=== PATIENT | male | born 1930 | race Caucasian/White ===

== ENCOUNTER → 2016-07-25 | Outpatient (CLI) | payer OTHER ==
[~2016-07-25] MED LIST: ACET-1256 PO; AMOX500C3 PO; ASPI81TA28 PO; ATOR10TA88 PO; CALC-338 PO; CALC500C3 PO; CALCTAB7 PO; CHOL1000 PO; CIPR-255 PO; CIPR1TAB10 PO; DOCU100C31 PO; DONE1TAB11 PO; FESO4TAB PO; LOSA1TAB38 PO; METO25TA3 PO; METO50TA7 PO; OXYC-57 PO; RIVA1TAB4 PO
[2016-07-25 13:42] LABS: BASO % 0.3 %; BASO ABS # 0.02 K/uL (0-0.2); COMPLETE YES; EOS % 0.9 %; HEMATOCRIT 38.5 % (42-52); IG% 0.1 %; LYMPH % 14.6 %; LYMPH ABS # 1.09 K/uL (1.2-3.4); MEAN CELL VOLUME 93.2 fL (80-100); MEAN CORPUSCULAR HEMOGLOBIN 31.2 pg (25-34); MEAN CORPUSCULAR HGB CONC 33.5 g/dl (32-36); MEAN PLATELET VOLUME 11.1 fL (7.4-10.4); MONO % 7.2 %; NEUT % 76.9 %; PLATELET COUNT 200 K/uL (130-400); RED BLOOD COUNT 4.13 M/uL (4.7-6.1); WHITE BLOOD COUNT 7.48 K/uL (4.8-10.8)
[2016-07-25 13:49] LABS: URINE APPEARANCE CLEAR (CLEAR); URINE BILIRUBIN NEG (NEG); URINE COLOR YELLOW; URINE NITRITE NEG (NEG); URINE PH 6.5 (4.5-7.5); URINE SPECIFIC GRAVITY 1.007 (1.000-1.030); UROBILINOGEN NEG (NEG)
[2016-07-25 13:50] LABS: ESTIMATED AVERAGE GLUCOSE 126 mg/dl; HA1C FLAG Normal (Normal)
[2016-07-25 13:52] LABS: MANUAL MICROSCOPIC REQUIRED? NO; REVIEW REQ? NO
[2016-07-25 14:01] LABS: BLOOD UREA NITROGEN 27 mg/dl (7-18); BUN/CREATININE RATIO 24.4 (10-20); CARBON DIOXIDE 27 mmol/L (21-32); CHLORIDE 106 mmol/L (98-107); CHOLESTEROL 115 mg/dl (0-200); GLUCOSE 107 mg/dl (70-99); POTASSIUM 4.3 mmol/L (3.5-5.1); SODIUM 141 mmol/L (136-145); TRIGLYCERIDES 76 mg/dl (0-150); VERY LOW DENSITY LIPOPROT CALC 15 mg/dl
[2016-07-25 14:11] LABS: CHOLESTEROL/HDL RATIO 2.6; HDL CHOLESTEROL 44 mg/dl; LDL CHOLESTEROL CALCULATED 56 mg/dl
== END | disposition home or self-care (01) ==
LOC: C.LABBC 09:59
PROVIDERS: ATTEND Internal Medicine Geriatric Medicine
DX: E78.5 Hyperlipidemia, unspecified (principal); I10 Essential (primary) hypertension; R73.9 Hyperglycemia, unspecified; D64.9 Anemia, unspecified; I48.92 Unspecified atrial flutter; E55.9 Vitamin D deficiency, unspecified

== ENCOUNTER 2016-09-27 18:09 | Emergency (ER) | payer OTHER ==
[~2016-09-27] VITALS: Ht 177.8 cm; Wt 103.2 kg
[~2016-09-27 18:09] MED LIST changes: -CALCTAB7 PO; -CIPR-255 PO; -DONE1TAB11 PO; -FLUT0.15 NAE; -METH-1305 PO; -METO50TA7 PO; -PHEN-775 PO
[2016-09-27 18:18] VITALS: TEMP 36.9; Ht 177.8 cm; Wt 103.2 kg
--- NOTE | 2016-09-27 18:55 | EMERGENCY ROOM VISIT NOTE ---
History Report prepared by Yancy: Izzy Solorzano Under the Supervision of: Dr. Austin Alejandro M.D. First contact with patient: 18:43 Chief Complaint: UNABLE TO VOID Stated Complaint: UNABLE TO VOID History of Present Illness The patient is a 86 year old male who presents to the Emergency Room with complaints of constant difficulty voiding urine beginning a few days ago. The patient states that he was seen by his doctor and had urine tests done today and had a Blackwood placed and removed. He now complains of continued inability to void and pain with urination. The patient rates his pain as a 4/10 in severity. Source of History: patient Onset: a few days ago Position: other (urinary) Symptom Intensity: 4/10 Timing: constant Note: Pt complains of inability to void and pain with urination. Review of Systems See HPI for pertinent positives & negatives. A total of 10 systems reviewed and were otherwise negative. Past Medical & Surgical Medical Problems: (1) Aortic Valve Disorder (2) Coronary Atherosclerosis Of [place] Coronary Vessel (3) Diab Teri Wo Compl, Type Ii Or Unspec Type, Not Uncntrld (4) Esophageal Reflux (5) Hx-Prostatic Malignancy (6) Hyperlipidemia Nec/Nos (7) Malign Neopl Prostate (8) Osteoarthros Nos-Unspec Family History No pertinent family history stated. Social History Smoking Status: Never Smoker Drug Use: none Marital Status: Housing Status: lives with family, lives with significant other Occupation Status: retired Current/Historical Medications Scheduled Acetaminophen (Tylenol), 500-1,000 MG PO PRN Amoxicillin (Amoxil), 2,000 MG PO UD Aspirin (Aspirin Ec), 81 MG PO QAM Atorvastatin (Lipitor), 10 MG PO QAM Calcium Carbonate (Tums), 2 TAB PO PRN Calcium Carbonate-Vitamin D W/ (Caltrate 600 Plus), 1 TAB PO DAILY Cholecalciferol (Vitamin D3), 1 TAB PO QAM Ciprofloxacin Hcl (Cipro), 250 MG PO BID Docusate Sodium (Docusate Sodium), 2 TAB PO PRN Donepezil Hydrochloride (Donepezil Hcl), 1 TAB PO HS Fesoterodine Fumarate (Toviaz), 4 MG PO Q2D Losartan Potassium (Cozaar), 50 MG PO QAM Metoprolol Succ (Toprol Xl) (Toprol-Xl), 50 MG PO BID Rivaroxaban (Xarelto), 20 MG PO QPM Allergies Coded Allergies: Lisinopril (Verified Adverse Reaction, Mild, DIARRHEA, 04/22/16) Physical Exam Vital Signs Date Time Temp Pulse Resp B/P Pulse Ox O2 Delivery O2 Flow Rate FiO2 09/27/16 21:49 71 18 186/96 94 Room Air 09/27/16 21:13 89 16 177/104 94 Room Air 09/27/16 20:23 91 16 179/114 95 Room Air 09/27/16 18:18 36.9 81 20 149/86 95 Room Air Physical Exam GENERAL: Patient is a healthy-appearing well-nourished HEAD: Normocephalic atraumatic EYES: Ocular movements intact pupils equal and react to light OROPHARYNX mucous membranes are moist no exudates present no erythema or edema present NECK: Supple no nuchal rigidity CHEST: Good equal expansion LUNGS: Clear and equal to auscultation CARDIAC: Normal S1 and S2 ABDOMEN: Soft, tender to the suprapubic area, no guarding BACK: No CVA tenderness EXTREMITIES: No pain upon palpation normal muscle strength in all groups no clubbing cyanosis or edema NEURO: Patient is following commands is answering questions appropriately. Alert and oriented x3 Cranial Nerves 2-12 grossly intact Medical Decision & Procedures ER Provider Diagnostic Interpretation: CT results as stated below per my review and radiologist interpretation: CT SCAN OF THE ABDOMEN AND PELVIS WITHOUT CONTRAST FINDINGS: Lower chest: There is respiratory motion artifact. There is dependent atelectasis. There are coronary artery calcifications. Liver: The unenhanced liver is normal in size, contour, and attenuation. There is no intrahepatic biliary ductal dilatation. Gallbladder: Unremarkable. Spleen: Normal in size and attenuation. Pancreas: Unremarkable. Adrenal glands: There is mild bilateral adrenal gland thickening. Kidneys: There are multiple nonobstructing right renal calculi measuring up to 1 cm in diameter Bowel: There are no transition zones indicate bowel obstruction. By history the appendix is surgically absent. There is no acute diverticulitis. There is a moderate amount stool within the rectal vault. Peritoneum: There is no intraperitoneal free air or abdominal ascites. There are postsurgical changes are prior right inguinal hernia repair Vasculature: The abdominal aorta is normal in course and caliber. Adenopathy: None. Pelvic viscera: There are prostate radiation therapy implant seeds present Skeletal structures: No destructive osseous lesions are seen. IMPRESSION: 1. No acute inflammatory changes 2. Right-sided nephrolithiasis. No ureteral or bladder calculi identified 3. No evidence of bowel obstruction. No evidence of free air Electronically signed by: Saran Jaramillo M.D. 09/27/2016 7:50 PM Dictated Date/Time: 09/27/2016 7:46 PM Laboratory Results Labs reviewed by ED physician. Medications Administered Medications (Trade) Dose Ordered Sig/Alva Route Start Time Stop Time Status Last Admin Dose Admin Ciprofloxacin (Cipro Tab) 500 mg NOW STAT PO 09/27/16 21:39 09/27/16 21:40 DC 09/27/16 21:47 500 MG ED Course 1843: Past medical records reviewed. The patient was evaluated in room C4. A complete history and physical examination was performed. 2021: I discussed the patient's case with Dr. Vasquez. 2138: Cipro Tab 500mg PO. 2204: Pt had 2L of fluid in urinary retention and got a Blackwood. 2209: Upon reexamination the patient is hemodynamically stable. I discussed results and treatment plan with the patient. He verbalizes agreement and understanding. The patient is ready for discharge. Medical Decision This is an 86-year-old male who presents emergency department unable to void after having appointment at his urology clinic today. We attempted to pass a Blackwood catheter in the emergency department without success. For this reason Dr. Vasquez. He was able to pass a Blackwood. He asked that the patient be started on Cipro and that his Xarelto be held. he hasn't pending urine culture from his appointment today. Patient was in agreement with the treatment plan. Consults Time Called: 2021 Consulting Physician: Dr. Vasquez - Urologist Returned Call: 2021 I discussed the patient's case with Dr. Vasquez. Impression Primary Impression: Urinary retention Scribe Attestation The scribe's documentation has been prepared under my direction and personally reviewed by me in its entirety. I confirm that the note above accurately reflects all work, treatment, procedures, and medical decision making performed by me. Departure Information Dispostion Home / Self-Care Prescriptions Ciprofloxacin Hcl (CIPRO) 500 Mg Tab 250 MG PO BID for 7 Days, #14 TAB Prov: Austin Alejandro MD 09/27/16 Referrals Guillard, Abdoul,M.D. (PCP) Forms HOME CARE DOCUMENTATION FORM, IMPORTANT VISIT INFORMATION, WORK / SCHOOL INSTRUCTIONS Patient Instructions ED Catheter Care Blackwood, ED Retention Urinary Male, My [facility] Additional Instructions Follow up with DR House's office [place] Culture results are usually available in approx 48 hours Follow up with DR Fuchs's office for blood pressure You have been examined and treated today on an emergency basis only. This is not a substitute for, or an effort to provide, complete comprehensive medical care. It is impossible to recognize and treat all injuries or illnesses in a single emergency department visit. It is therefore important that you follow up closely with Dr Fuchs. Call as soon as possible for an appointment. Thank you for your time and consideration. I look forward to speaking with you again soon. Please don't hesitate to call us if you have any questions.
[2016-09-27] MEDS ORDERED: METO50TA7 PO (18:58)
[2016-09-27] MEDS ORDERED: DONE1TAB11 PO (19:02)
[2016-09-27] MEDS ORDERED: CALCTAB7 PO (19:02)
--- NOTE | 2016-09-27 19:51 | DIAGNOSTIC IMAGING REPORT ---
CT SCAN OF THE ABDOMEN AND PELVIS WITHOUT CONTRAST CLINICAL HISTORY: Generalized abdominal pain. Inability urinate. COMPARISON STUDY: No previous studies for comparison. TECHNIQUE: CT scan of the abdomen and pelvis was performed from the lung bases to the proximal femurs. Images are reviewed in the axial, sagittal, and coronal planes. IV contrast was not administered for this examination. CT DOSE: 1694.58 mGy.cm FINDINGS: Lower chest: There is respiratory motion artifact. There is dependent atelectasis. There are coronary artery calcifications. Liver: The unenhanced liver is normal in size, contour, and attenuation. There is no intrahepatic biliary ductal dilatation. Gallbladder: Unremarkable. Spleen: Normal in size and attenuation. Pancreas: Unremarkable. Adrenal glands: There is mild bilateral adrenal gland thickening. Kidneys: There are multiple nonobstructing right renal calculi measuring up to 1 cm in diameter Bowel: There are no transition zones indicate bowel obstruction. By history the appendix is surgically absent. There is no acute diverticulitis. There is a moderate amount stool within the rectal vault. Peritoneum: There is no intraperitoneal free air or abdominal ascites. There are postsurgical changes are prior right inguinal hernia repair Vasculature: The abdominal aorta is normal in course and caliber. Adenopathy: None. Pelvic viscera: There are prostate radiation therapy implant seeds present Skeletal structures: No destructive osseous lesions are seen. IMPRESSION: 1. No acute inflammatory changes 2. Right-sided nephrolithiasis. No ureteral or bladder calculi identified 3. No evidence of bowel obstruction. No evidence of free air Electronically signed by: Saran Jaramillo M.D. 09/27/2016 7:50 PM Dictated Date/Time: 09/27/2016 7:46 PM
[2016-09-27] MEDS ORDERED: CIPROFLOXACIN 500 MG TAB PO STA (21:39)
[2016-09-27] MEDS ORDERED: CIPR-255 PO (21:40)
[2016-09-27 21:49] VITALS: BP 186/96; PULSE 71; O2SAT 94
--- NOTE | 2016-09-30 08:01 | GENITOURINARY CONSULTATION ---
DATE OF CONSULTATION: 09/27/2016 EMERGENCY ROOM CONSULT REASON FOR THE CONSULT: Acute urinary retention. HISTORY OF PRESENTATION: The patient is an 86-year-old male who has a history of prostate cancer. He is status post radiation therapy, I believe brachytherapy with Dr. House, who earlier this year developed a calcified urethra that required cystoscopy and laser litho in the operating room to help him with urinary voiding difficulties. The patient began to have some recurrence of his symptoms, but had a cystoscopy about several weeks ago with Dr. House but he seemed to be doing better. His had just and he did not want to have a repeat laser procedure done. He did have difficulty getting a catheter in because there were calcifications in his prostatic urethra, but he began to have difficulty shortly after he left this visit. Today, he came into the office with difficulties urinating and sounded as if he had a UTI. There was great difficulty, but the nurses were able to get a 14 Croatian coude catheter in him and get a catheter sample that is pending. The patient denies any fever but he was unable to void after this and came to the Emergency Room in retention with several 4-500 mL in his bladder. I was able to place a 10-Croatian straight catheter with minimal difficulty. He drained about 500 mL of slightly bloody urine, but he was irrigated without obvious clot. The patient does take Xarelto. He has multiple medical problems including atrial flutter, heart valve, some dementia, hypertension, hyperglycemia, sleep apnea and prostate cancer. Please refer to the chart for history of his medications. The main of concern from my point of view is Xarelto, which I discussed with the patient and his daughter who accompanies him, that we should hold off on this for the time being, would maintain aspirin. My concern with the Xarelto is as I explained, would be that if he begins to bleed, I would be unable to irrigate through a 10-Croatian catheter, placing a larger catheter would be difficult and then having to do surgery on Xarelto would also be difficult. Of course, there is some risk of being off of Xarelto. I explained this but this is unfortunately a no win situation. The patient is discussed with the Emergency Room physician. PHYSICAL EXAMINATION: GENERAL: The patient is alert and responsive. HEENT: Remarkable for some byrd on his face. No respiratory distress. ABDOMEN: Benign except for suprapubic discomfort. GENITOURINARY: He has normal male phallus. Testes are descended bilaterally. EXTREMITIES: Unremarkable. NEUROLOGIC: He is alert and oriented and responsive although he does have a little bit of confusion, but not severe. Apparently, the patient does live at home alone and does drive. He according to the chart, has been taking Aricept and was to see his neurologist according to his family doctor's last visit. ASSESSMENT: Urinary retention with difficult Blackwood catheter placement. It should be noted that prior to my coming, the stamp mounter had attempted to pass a 16-Croatian catheter without any success and there was blood at the meatus. I instructed them to the ER doctor to start an antibiotic until the culture results are back. Family is going to call the office Friday morning or sooner if he has fever, for culture results as well as to schedule urgent followup with Dr. House.
== END 2016-09-27 22:10 | disposition home or self-care (01) ==
LOC: C.EDB 18:11 → C.EDC 22:10
DX: R33.9 Retention of urine, unspecified (principal); R35.0 Frequency of micturition; K21.9 Gastro-esophageal reflux disease without esophagitis; E78.5 Hyperlipidemia, unspecified; Z85.46 Personal history of malignant neoplasm of prostate; I25.10 Atherosclerotic heart disease of native coronary artery without angina pectoris; E11.9 Type 2 diabetes mellitus without complications; Z79.82 Long term (current) use of aspirin; Z79.899 Other long term (current) drug therapy; Z79.01 Long term (current) use of anticoagulants; I48.92 Unspecified atrial flutter; F03.90 Unspecified dementia, unspecified severity, without behavioral disturbance, psychotic disturbance, mood disturbance, and anxiety; G47.30 Sleep apnea, unspecified

== ENCOUNTER → 2016-09-27 | Outpatient (CLI) | payer OTHER ==
[~2016-09-27] MED LIST changes: +ATOR10TA82 PO; -ATOR10TA88 PO; +FLUT0.15 NAE; +METH-1305 PO; +PHEN-775 PO
== END | disposition home or self-care (01) ==
LOC: C.LABSPEC 15:36
PROVIDERS: ATTEND Nurse Practitioner Family
DX: R35.0 Frequency of micturition (principal)

== ENCOUNTER 2016-10-02 13:44 | Emergency (ER) | payer OTHER ==
[~2016-10-02] VITALS: Ht 177.8 cm; Wt 103.3 kg
[~2016-10-02 13:44] MED LIST changes: -CALC-338 PO; +CALCTAB7 PO; +CIPR-255 PO; -CIPR1TAB10 PO; +DONE1TAB11 PO; -METO25TA3 PO; +METO50TA7 PO; -OXYC-57 PO
[2016-10-02 13:55] VITALS: TEMP 36.7; Ht 177.8 cm; Wt 103.3 kg
--- NOTE | 2016-10-02 14:49 | EMERGENCY ROOM VISIT NOTE ---
History Report prepared by Yancy: Shahzad Sadler Under the Supervision of: Dr. Vlad Jack M.D. First contact with patient: 14:17 Chief Complaint: UNABLE TO VOID Stated Complaint: UNABLE TO VOID History of Present Illness The patient is a 86 year old male who presents to the Emergency Room with complaints of issues with Blackwood catheter occurring today. The patient was evaluated in the Emergency Room 5 days ago for urinary retention and a Blackwood catheter was placed. He was also placed on Cipro for a urinary tract infection. Today, the patient was evaluated by the home health nurse for a blocked catheter. The nurse was able to remove the catheter but was unable to insert another one. He has been unable to urinate on his own since the catheter was taken out. The patient currently reports some bladder pressure. He currently denies any pain. He denies fevers, chills, abdominal pain, or any other complaints. Urine culture from last week did not grow any organisms. Source of History: patient Onset: today Position: other (global) Symptom Intensity: No pain Quality: other (issues with Blackwood catheter) Associated Symptoms: No abdominal pain, No chills, No fevers Review of Systems See HPI for pertinent positives & negatives. A total of 10 systems reviewed and were otherwise negative. Past Medical & Surgical Medical Problems: (1) Aortic Valve Disorder (2) Coronary Atherosclerosis Of [place] Coronary Vessel (3) Diab Teri Wo Compl, Type Ii Or Unspec Type, Not Uncntrld (4) Esophageal Reflux (5) Forehead laceration (6) Forehead laceration (7) Hx-Prostatic Malignancy (8) Hyperlipidemia Nec/Nos (9) Malign Neopl Prostate (10) Osteoarthros Nos-Unspec (11) Urinary retention Surgical Problems: (1) Hx of appendectomy Family History FH: heart disease Social History Smoking Status: Never Smoker Drug Use: none Marital Status: Housing Status: lives with family, lives with significant other Occupation Status: retired Current/Historical Medications Scheduled Acetaminophen (Tylenol), 500-1,000 MG PO PRN Amoxicillin (Amoxil), 2,000 MG PO UD Aspirin (Aspirin Ec), 81 MG PO QAM Atorvastatin (Lipitor), 10 MG PO QAM Calcium Carbonate (Tums), 2 TAB PO PRN Calcium Carbonate-Vitamin D W/ (Caltrate 600 Plus), 1 TAB PO QPM Cholecalciferol (Vitamin D3), 1 TAB PO QAM Ciprofloxacin Hcl (Cipro), 250 MG PO BID Docusate Sodium (Docusate Sodium), 2 TAB PO PRN Donepezil Hydrochloride (Donepezil Hcl), 1 TAB PO HS Fesoterodine Fumarate (Toviaz), 4 MG PO Q2D Losartan Potassium (Cozaar), 50 MG PO QAM Metoprolol Succ (Toprol Xl) (Toprol-Xl), 50 MG PO BID Rivaroxaban (Xarelto), 20 MG PO QPM Allergies Coded Allergies: Lisinopril (Verified Adverse Reaction, Mild, DIARRHEA, 10/02/16) Physical Exam Vital Signs Date Time Temp Pulse Resp B/P Pulse Ox O2 Delivery O2 Flow Rate FiO2 10/02/16 16:42 111 16 170/117 95 10/02/16 15:11 110 16 169/104 94 Room Air 10/02/16 13:55 36.7 112 20 160/95 96 Room Air Physical Exam GENERAL: Patient is in no acute distress. HEENT: No acute trauma, normocephalic atraumatic, mucous membranes moist, no nasal congestion, no scleral icterus. NECK: No stridor, no adenopathy, no meningismus, trachea is midline. LUNGS: Clear to auscultation bilaterally, no wheeze, no rhonchi, breath sounds equal. HEART: Irregular with a mild tachycardia, no murmurs. ABDOMEN: Soft, nontender, bowel sounds positive, no hernias, no peritonitis. GROIN: Blood at the penile meatus. No scrotal cellulitis. EXTREMITIES: No cyanosis or edema, full range of motion of all the joints without pain or difficulty, no signs for acute trauma. NEUROLOGIC: Oriented x 3, no acute motor or sensory deficits, no focal weakness. SKIN: No rash, no jaundice, no diaphoresis. Medical Decision & Procedures Laboratory Results 10/02/16 14:40 Red Blood Count 4.21, Mean Corpuscular Volume 93.1, Mean Corpuscular Hemoglobin 32.3, Mean Corpuscular Hemoglobin Concent 34.7, Mean Platelet Volume 10.8, Neutrophils (%) (Auto) 71.5, Lymphocytes (%) (Auto) 18.2, Monocytes (%) (Auto) 8.7, Eosinophils (%) (Auto) 1.2, Basophils (%) (Auto) 0.3, Neutrophils # (Auto) 5.58, Lymphocytes # (Auto) 1.42, Monocytes # (Auto) 0.68, Eosinophils # (Auto) 0.09, Basophils # (Auto) 0.02 10/02/16 14:40 Test 10/02/16 14:40 10/02/16 14:45 White Blood Count 7.80 K/uL (4.8-10.8) Red Blood Count 4.21 M/uL (4.7-6.1) Hemoglobin 13.6 g/dL (14.0-18.0) Hematocrit 39.2 % (42-52) Mean Corpuscular Volume 93.1 fL (80-100) Mean Corpuscular Hemoglobin 32.3 pg (25-34) Mean Corpuscular Hemoglobin Concent 34.7 g/dl (32-36) Platelet Count 184 K/uL (130-400) Mean Platelet Volume 10.8 fL (7.4-10.4) Neutrophils (%) (Auto) 71.5 % Lymphocytes (%) (Auto) 18.2 % Monocytes (%) (Auto) 8.7 % Eosinophils (%) (Auto) 1.2 % Basophils (%) (Auto) 0.3 % Neutrophils # (Auto) 5.58 K/uL (1.4-6.5) Lymphocytes # (Auto) 1.42 K/uL (1.2-3.4) Monocytes # (Auto) 0.68 K/uL (0.11-0.59) Eosinophils # (Auto) 0.09 K/uL (0-0.5) Basophils # (Auto) 0.02 K/uL (0-0.2) RDW Standard Deviation 47.6 fL (36.4-46.3) RDW Coefficient of Variation 14.0 % (11.5-14.5) Immature Granulocyte % (Auto) 0.1 % Immature Granulocyte # (Auto) 0.01 K/uL (0.00-0.02) Prothrombin Time 11.2 SECONDS (9.0-12.0) Prothromb Time International Ratio 1.0 (0.9-1.1) Activated Partial Thromboplast Time 25.2 SECONDS (21.0-31.0) Partial Thromboplastin Ratio 1.0 Anion Gap 6.0 mmol/L (3-11) Est Creatinine Clear Calc Drug Dose 61.5 ml/min Estimated GFR () 77.5 Estimated GFR (Non- 66.9 BUN/Creatinine Ratio 25.8 (10-20) Calcium Level 8.8 mg/dl (8.5-10.1) Troponin I < 0.015 ng/ml (0-0.045) Urine Color YELLOW Urine Appearance CLEAR (CLEAR) Urine pH 5.5 (4.5-7.5) Urine Specific [place] 1.022 (1.000-1.030) Urine Protein 1+ (NEG) Urine Glucose (UA) NEG (NEG) Urine Ketones TRACE (NEG) Urine Occult Blood 3+ (NEG) Urine Nitrite NEG (NEG) Urine Bilirubin NEG (NEG) Urine Urobilinogen NEG (NEG) Urine Leukocyte Esterase MODERATE (NEG) Urine WBC (Auto) >30 /hpf (0-5) Urine RBC (Auto) >30 /hpf (0-4) Urine Hyaline Casts (Auto) 1-5 /lpf (0-5) Urine Epithelial Cells (Auto) >30 /lpf (0-5) Urine Bacteria (Auto) 1+ (NEG) Urine Renal Epithelial Cells /lpf (0-5) Urine Pathogenic Casts /lpf (0) Urine Mucus PRESENT (NONE PRSENT) Laboratory results reviewed by me. ECG Indication: tachycardia Rate (beats per minute): 110 Rhythm: sinus tachycardia Findings: 1st degree AV block, LBBB Comparison ECG Date: July 23, 2013 Change: LBBB is now present when compared to July 23, 2013. ED Course 1417: The patient was evaluated in room A03. A complete history and physical exam was performed. 1611: I reevaluated the patient who currently denies any complaints. 1617: I discussed the patient's case with Dr. Liang, executive secretary with [facility]. He looked at the EKG and reported that the it is a rate related bundle. Dr. Liang is not concerned and recommended outpatient follow up. Reevaluated the patient. Discussed results and discharge instructions : He verbalized understanding and agreement. The patient is ready for discharge. Medical Decision Differential diagnosis includes but is not limited to urinary retention, UTI, renal failure, coagulopathy, anemia, A-Fib or A-Flutter. There is no leukocytosis or concerning anemia. No coagulopathy. No significant electrolyte abnormality or kidney failure. EKG shows what appears to be a sinus tachycardia with a prolonged first-degree AV block. A left bundle -branch block was present. The block was new compared to previous EKGs and the first degree A-V block was new compared to previous EKGs. Cardiac enzyme testing times one is not consistent with acute cardiac injury. Urinalysis shows evidence for hematuria, possibly infection, urine culture is pending. Of note, the urine culture from last week did not show any organism. The patient had a 10 Tajik Blackwood catheter placed without difficulty. The bladder drained. He felt improved. I discussed the case with the on-call executive secretary, Dr. Liang. We discussed the changes on EKG and the mild tachycardia. The patient was felt stable for discharge as he was not having any cardiac complaints. It was felt that the tachycardia itself may be causing the changes in the QRS. Of note, the patient was noted to be somewhat hypertensive while here in the emergency room. He was due though for a dose of beta mason this evening. In addition, he states his blood pressure has been high lately and his doctors are following this. No medication adjustment was felt needed. The patient is being discharged to follow with urology as scheduled. He now has a functioning Blackwood catheter in place. Consults Time Called: 1615 Consulting Physician: Dr. Liang, executive secretary with [facility] Returned Call: 1617 I discussed the patient's case with Dr. Liang, executive secretary with [facility]. He looked at the EKG and reported that the it is a rate related bundle. Dr. Liang is not concerned and recommended outpatient follow up. Impression Primary Impression: Urinary retention Additional Impressions: Tachycardia Hypertension Scribe Attestation The scribe's documentation has been prepared under my direction and personally reviewed by me in its entirety. I confirm that the note above accurately reflects all work, treatment, procedures, and medical decision making performed by me. Departure Information Dispostion Home / Self-Care Referrals Abdoul Fuchs M.D. (PCP) Forms HOME CARE DOCUMENTATION FORM, IMPORTANT VISIT INFORMATION, WORK / SCHOOL INSTRUCTIONS Patient Instructions My [facility] Additional Instructions follow with your [facility] md this week for a recheck follow with urology as scheduled return with any concerns, fever, vomiting or trouble with the catheter draining Problem Qualifiers
[2016-10-02 15:00] LABS: BASO % 0.3 %; BASO ABS # 0.02 K/uL (0-0.2); COMPLETE YES; EOS % 1.2 %; HEMATOCRIT 39.2 % (42-52); IG% 0.1 %; LYMPH % 18.2 %; LYMPH ABS # 1.42 K/uL (1.2-3.4); MEAN CELL VOLUME 93.1 fL (80-100); MEAN CORPUSCULAR HEMOGLOBIN 32.3 pg (25-34); MEAN CORPUSCULAR HGB CONC 34.7 g/dl (32-36); MEAN PLATELET VOLUME 10.8 fL (7.4-10.4); MONO % 8.7 %; NEUT % 71.5 %; PLATELET COUNT 184 K/uL (130-400); RED BLOOD COUNT 4.21 M/uL (4.7-6.1)
[2016-10-02 15:06] LABS: URINE APPEARANCE CLEAR (CLEAR); URINE BILIRUBIN NEG (NEG); URINE COLOR YELLOW; URINE EPITHELIAL CELL AUTO >30 /lpf (0-5); URINE NITRITE NEG (NEG); URINE PH 5.5 (4.5-7.5); URINE SPECIFIC GRAVITY 1.022 (1.000-1.030); UROBILINOGEN NEG (NEG)
[2016-10-02 15:10] LABS: MANUAL MICROSCOPIC REQUIRED? NO; REVIEW REQ? YES
[2016-10-02 15:10] LABS: PROTHROMBIN TIME (PATIENT) 11.2 SECONDS (9.0-12.0)
[2016-10-02 15:16] LABS: BUN/CREATININE RATIO 25.8 (10-20); CALCIUM 8.8 mg/dl (8.5-10.1)
[2016-10-02 15:24] LABS: URINE MUCUS PRESENT (NONE PRSENT)
[2016-10-02 16:42] VITALS: BP 170/117; PULSE 111; O2SAT 95
== END 2016-10-02 16:44 | disposition home or self-care (01) ==
LOC: C.EDB 13:45 → C.EDA 16:44
DX: R33.9 Retention of urine, unspecified (principal); R00.0 Tachycardia, unspecified; I10 Essential (primary) hypertension; I25.10 Atherosclerotic heart disease of native coronary artery without angina pectoris; E11.9 Type 2 diabetes mellitus without complications; K21.9 Gastro-esophageal reflux disease without esophagitis; Z85.46 Personal history of malignant neoplasm of prostate; E78.5 Hyperlipidemia, unspecified; M19.90 Unspecified osteoarthritis, unspecified site; Z79.82 Long term (current) use of aspirin; Z79.01 Long term (current) use of anticoagulants; Z79.899 Other long term (current) drug therapy; I44.7 Left bundle-branch block, unspecified

== ENCOUNTER 2016-10-03 07:06 | Emergency (ER) | payer OTHER ==
[2016-10-03 07:19] VITALS: TEMP 36.9; Ht 177.8 cm
[2016-10-03 08:14] LABS: BASO % 0.2 %; BASO ABS # 0.02 K/uL (0-0.2); COMPLETE YES; EOS % 0.7 %; HEMATOCRIT 37.8 % (42-52); IG% 0.2 %; LYMPH % 9.7 %; LYMPH ABS # 0.91 K/uL (1.2-3.4); MEAN CELL VOLUME 91.3 fL (80-100); MEAN CORPUSCULAR HEMOGLOBIN 31.4 pg (25-34); MEAN CORPUSCULAR HGB CONC 34.4 g/dl (32-36); MEAN PLATELET VOLUME 10.3 fL (7.4-10.4); NEUT % 81.2 %; PLATELET COUNT 180 K/uL (130-400); RED BLOOD COUNT 4.14 M/uL (4.7-6.1); WHITE BLOOD COUNT 9.42 K/uL (4.8-10.8)
[2016-10-03 08:30] LABS: BLOOD UREA NITROGEN 27 mg/dl (7-18); BUN/CREATININE RATIO 27.6 (10-20); CALCIUM 8.8 mg/dl (8.5-10.1); CARBON DIOXIDE 30 mmol/L (21-32); CHLORIDE 107 mmol/L (98-107); CREATININE 0.97 mg/dl (0.60-1.40); GLUCOSE 121 mg/dl (70-99); POTASSIUM 4.1 mmol/L (3.5-5.1); SODIUM 143 mmol/L (136-145)
[2016-10-03 08:51] LABS: URINE APPEARANCE CLOUDY (CLEAR); URINE BILIRUBIN NEG (NEG); URINE COLOR YELLOW; URINE NITRITE NEG (NEG); URINE PH 7.5 (4.5-7.5); URINE SPECIFIC GRAVITY 1.019 (1.000-1.030); UROBILINOGEN NEG (NEG)
[2016-10-03 08:52] LABS: MANUAL MICROSCOPIC REQUIRED? NO; REVIEW REQ? NO
[2016-10-03 10:50] VITALS: BP 168/116; PULSE 111; O2SAT 93
--- NOTE | 2016-10-03 15:34 | EMERGENCY ROOM VISIT NOTE ---
History Report prepared by Yancy: Shayy Burch Under the Supervision of: Dr. Harpreet Bolanos M.D. 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 The neighbor found the patient sitting in a chair sleeping. He was roused by a loud noise made by the neighbor. She found that the patient had blood on his pants, the floor, and tracked around the house. He has a Blackwood catheter in place. He is on Xarelto. He states that he has groin pain. He denies any falls or trauma. Denies chest pain or shortness of breath. No bowel problems. no numbness or weakness of his legs. 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 Review of Systems See HPI for pertinent positives & negatives. A total of 10 systems reviewed and were otherwise negative. Past Medical & Surgical Medical Problems: (1) Aortic Valve Disorder (2) Coronary Atherosclerosis Of [place] Coronary Vessel (3) Diab Teri Wo Compl, Type Ii Or Unspec Type, Not Uncntrld (4) Esophageal Reflux (5) Forehead laceration (6) Forehead laceration (7) Hx-Prostatic Malignancy (8) Hyperlipidemia Nec/Nos (9) Malign Neopl Prostate (10) Osteoarthros Nos-Unspec (11) Urinary retention Surgical Problems: (1) Hx of appendectomy Old medical records were reviewed. Nurse's notes were reviewed and I agree with. Family History FH: heart disease Social History Smoking Status: Former Smoker Drug Use: none Marital Status: Housing Status: lives alone Occupation Status: retired Current/Historical Medications Scheduled Acetaminophen (Tylenol), 500-1,000 MG PO PRN Amoxicillin (Amoxil), 2,000 MG PO UD Aspirin (Aspirin Ec), 81 MG PO QAM Atorvastatin (Lipitor), 10 MG PO QAM Calcium Carbonate (Tums), 2 TAB PO PRN Calcium Carbonate-Vitamin D W/ (Caltrate 600 Plus), 1 TAB PO QPM Cholecalciferol (Vitamin D3), 1 TAB PO QAM Ciprofloxacin Hcl (Cipro), 250 MG PO BID Docusate Sodium (Docusate Sodium), 2 TAB PO PRN Donepezil Hydrochloride (Donepezil Hcl), 1 TAB PO HS Fesoterodine Fumarate (Toviaz), 4 MG PO Q2D Losartan Potassium (Cozaar), 100 MG PO QAM Metoprolol Succ (Toprol Xl) (Toprol-Xl), 50 MG PO BID Rivaroxaban (Xarelto), 20 MG PO QPM Allergies Coded Allergies: Lisinopril (Verified Adverse Reaction, Mild, DIARRHEA, 10/03/16) Physical Exam Vital Signs Date Time Temp Pulse Resp B/P Pulse Ox O2 Delivery O2 Flow Rate FiO2 10/03/16 10:50 111 18 168/116 93 Room Air 10/03/16 09:08 113 16 167/99 95 Room Air 10/03/16 07:19 36.9 110 20 168/94 95 Room Air Physical Exam General: Non ill-appearing older male, hard of hearing. Well developed well nourished in no acute distress, breathing comfortably on room air. Normal speech HEENT: Normal cephalic atraumatic. Pupils are equal round and reactive to light. Extraocular movements are intact. Oropharynx is pink with moist mucous membranes. No swelling of the mouth lips or tongue. Neck: Supple with a midline trachea. No meningeal signs or stiffness, no JVD or bruits. No Stridor. Chest: Clear to auscultation bilaterally. No wheezes or rhonchi. No increased work of breathing. Heart: regular rate and rhythm. Abdomen: Soft nontender, nondistended without rebound guarding or rigidity. : Blackwood catheter in place, yellow urine in bag, small amount of blood in meatus, no active bleeding. Extremities: No cyanosis clubbing or edema. No calf tenderness or assymetry Spine/Back. Non tender to palpation. No CVA tenderness Skin: Good turgor without rashes. Neurologic exam: Cranial nerves two through 12 are intact. Motor and sensation are intact and symmetrical throughout. Medical Decision & Procedures Laboratory Results 10/03/16 08:05 Red Blood Count 4.14, Mean Corpuscular Volume 91.3, Mean Corpuscular Hemoglobin 31.4, Mean Corpuscular Hemoglobin Concent 34.4, Mean Platelet Volume 10.3, Neutrophils (%) (Auto) 81.2, Lymphocytes (%) (Auto) 9.7, Monocytes (%) (Auto) 8.0, Eosinophils (%) (Auto) 0.7, Basophils (%) (Auto) 0.2, Neutrophils # (Auto) 7.65, Lymphocytes # (Auto) 0.91, Monocytes # (Auto) 0.75, Eosinophils # (Auto) 0.07, Basophils # (Auto) 0.02 10/03/16 08:05 Test 10/03/16 08:05 10/03/16 08:35 White Blood Count 9.42 K/uL (4.8-10.8) Red Blood Count 4.14 M/uL (4.7-6.1) Hemoglobin 13.0 g/dL (14.0-18.0) Hematocrit 37.8 % (42-52) Mean Corpuscular Volume 91.3 fL (80-100) Mean Corpuscular Hemoglobin 31.4 pg (25-34) Mean Corpuscular Hemoglobin Concent 34.4 g/dl (32-36) Platelet Count 180 K/uL (130-400) Mean Platelet Volume 10.3 fL (7.4-10.4) Neutrophils (%) (Auto) 81.2 % Lymphocytes (%) (Auto) 9.7 % Monocytes (%) (Auto) 8.0 % Eosinophils (%) (Auto) 0.7 % Basophils (%) (Auto) 0.2 % Neutrophils # (Auto) 7.65 K/uL (1.4-6.5) Lymphocytes # (Auto) 0.91 K/uL (1.2-3.4) Monocytes # (Auto) 0.75 K/uL (0.11-0.59) Eosinophils # (Auto) 0.07 K/uL (0-0.5) Basophils # (Auto) 0.02 K/uL (0-0.2) RDW Standard Deviation 46.5 fL (36.4-46.3) RDW Coefficient of Variation 13.9 % (11.5-14.5) Immature Granulocyte % (Auto) 0.2 % Immature Granulocyte # (Auto) 0.02 K/uL (0.00-0.02) Anion Gap 6.0 mmol/L (3-11) Estimated GFR () 80.5 Estimated GFR (Non- 69.4 BUN/Creatinine Ratio 27.6 (10-20) Calcium Level 8.8 mg/dl (8.5-10.1) Urine Color YELLOW Urine Appearance CLOUDY (CLEAR) Urine pH 7.5 (4.5-7.5) Urine Specific [place] 1.019 (1.000-1.030) Urine Protein NEG (NEG) Urine Glucose (UA) NEG (NEG) Urine Ketones 1+ (NEG) Urine Occult Blood 3+ (NEG) Urine Nitrite NEG (NEG) Urine Bilirubin NEG (NEG) Urine Urobilinogen NEG (NEG) Urine Leukocyte Esterase SMALL (NEG) Urine WBC (Auto) 1-5 /hpf (0-5) Urine RBC (Auto) >30 /hpf (0-4) Urine Hyaline Casts (Auto) 1-5 /lpf (0-5) Urine Epithelial Cells (Auto) 5-10 /lpf (0-5) Urine Bacteria (Auto) NEG (NEG) Laboratory studies as stated above per my review. ED Course 0738: Past medical records reviewed. The patient was evaluated in room B12B, and a complete history and physical examination were performed. 0918: I reevaluated the patient. He is resting comfortably. There is yellow urine in the bag. He would like to wait for his daughter to arrive. 1024: I discussed with the patient's daughter. The major case detective will look into placing the patient into a intermediate. 1041: Upon reevaluation, the patient is resting comfortably. I discussed the results and treatment plan with him and his daughter. They verbalized agreement of the treatment plan. The patient was discharged home. Medical Decision Differential diagnoses: infection, anemia, trauma, electrolyte or metabolic abnormality. This patient comes in as described above he had blood coming out of his penis around the catheter. He has no bleeding at present. there is dried blood. there is yellow urine seen in the bag. I did a bladder scan and there is no residual bladder in the urine additionally we changed the Blackwood bag and drained it and it reaccumulated. His Blackwood catheter is therefore working. Blood work was obtained and he is not significantly anemic. He has nothing to suggest infection. he has no significant change in his kidney function. He is on an antibiotic. I will put him on a leg bag. Our case management team talked to the daughter they are to try to get him in with [facility] and they're to make these arrangements. He should return if: Worsening of symptoms any further problems with catheter, any new problems or concerns Impression Primary Impression: Hematuria Scribe Attestation The scribe's documentation has been prepared under my direction and personally reviewed by me in its entirety. I confirm that the note above accurately reflects all work, treatment, procedures, and medical decision making performed by me. Departure Information Dispostion Home / Self-Care Referrals Abdoul Fuchs M.D. (PCP) Forms HOME CARE DOCUMENTATION FORM, IMPORTANT VISIT INFORMATION, WORK / SCHOOL INSTRUCTIONS Patient Instructions [facility] Additional Instructions Rest. Drink plenty of fluids. Return if: Increasing pain or bleeding, worsening of symptoms, any new problems or concerns.
== END 2016-10-03 11:02 | disposition home or self-care (01) ==
LOC: C.EDB 07:07
DX: R31.9 Hematuria, unspecified (principal); I35.8 Other nonrheumatic aortic valve disorders; I25.10 Atherosclerotic heart disease of native coronary artery without angina pectoris; E11.9 Type 2 diabetes mellitus without complications; K21.9 Gastro-esophageal reflux disease without esophagitis; E78.5 Hyperlipidemia, unspecified; M19.90 Unspecified osteoarthritis, unspecified site; R33.9 Retention of urine, unspecified; Z96.0 Presence of urogenital implants; Z85.46 Personal history of malignant neoplasm of prostate; Z87.891 Personal history of nicotine dependence; Z79.82 Long term (current) use of aspirin

== ENCOUNTER → 2016-12-25 | Outpatient (CLI) | payer OTHER ==
[~2016-12-25] MED LIST changes: -ATOR10TA82 PO; +ATOR10TA88 PO
[2016-12-25 13:42] LABS: BASO % 0.3 %; BASO ABS # 0.02 K/uL (0-0.2); COMPLETE YES; EOS % 2.2 %; HEMATOCRIT 36.6 % (42-52); IG% 0.3 %; LYMPH % 15.2 %; MEAN CELL VOLUME 93.4 fL (80-100); MEAN CORPUSCULAR HEMOGLOBIN 30.6 pg (25-34); MEAN CORPUSCULAR HGB CONC 32.8 g/dl (32-36); MEAN PLATELET VOLUME 10.4 fL (7.4-10.4); MONO % 7.2 %; NEUT % 74.8 %; PLATELET COUNT 202 K/uL (130-400); RED BLOOD COUNT 3.92 M/uL (4.7-6.1); WHITE BLOOD COUNT 7.88 K/uL (4.8-10.8)
[2016-12-25 14:15] LABS: CALCIUM 9.2 mg/dl (8.5-10.1)
[2016-12-25 14:25] LABS: BLOOD UREA NITROGEN 20 mg/dl (7-18); BUN/CREATININE RATIO 19.8 (10-20); CARBON DIOXIDE 28 mmol/L (21-32); CHLORIDE 109 mmol/L (98-107); GLUCOSE 104 mg/dl (70-99); POTASSIUM 4.1 mmol/L (3.5-5.1); SODIUM 143 mmol/L (136-145)
[2016-12-25 15:01] LABS: ESTIMATED AVERAGE GLUCOSE 117 mg/dl; HA1C FLAG Normal (Normal)
--- NOTE | 2017-01-06 11:24 | CODING QUERY MEDICAL NECESSITY ---
SUPPORTING DIAGNOSIS NEEDED Dr. Fuchs, A supporting diagnosis is required for the test/procedure performed on this patient in order for us to be reimbursed by the patient's insurance. Please provide a supporting diagnosis for the following test/procedure listed below next to the test name along with your signature. *If there is no additional diagnosis for this patient that would support the following test/procedure please document that below next to the test/procedure. Test(s)/Procedure(s) that require a supporting diagnosis: * [id number] GLYCATED HEMOGLOBIN DIAGNOSIS: DATE OF SERVICE: 12/25/16 Provider Signature: Date: Thank you Lucho Schmitt [facility] Information Management Once completed, please kindly fax back to [phone] For questions please call [phone]
== END | disposition home or self-care (01) ==
LOC: C.LABBC 11:48
PROVIDERS: ATTEND Internal Medicine Geriatric Medicine
DX: D64.9 Anemia, unspecified (principal); F03.90 Unspecified dementia, unspecified severity, without behavioral disturbance, psychotic disturbance, mood disturbance, and anxiety; R73.9 Hyperglycemia, unspecified

== ENCOUNTER → 2017-03-19 | Outpatient (CLI) | payer OTHER ==
[2017-03-19 13:36] LABS: BASO % 0.2 %; BASO ABS # 0.01 K/uL (0-0.2); COMPLETE YES; EOS % 1.7 %; HEMATOCRIT 36.9 % (42-52); IG% 0.2 %; LYMPH % 16.9 %; LYMPH ABS # 1.09 K/uL (1.2-3.4); MEAN CELL VOLUME 93.2 fL (80-100); MEAN CORPUSCULAR HEMOGLOBIN 30.1 pg (25-34); MEAN CORPUSCULAR HGB CONC 32.2 g/dl (32-36); MEAN PLATELET VOLUME 10.5 fL (7.4-10.4); MONO % 8.9 %; NEUT % 72.1 %; PLATELET COUNT 214 K/uL (130-400); RED BLOOD COUNT 3.96 M/uL (4.7-6.1); WHITE BLOOD COUNT 6.44 K/uL (4.8-10.8)
[2017-03-19 14:04] LABS: BLOOD UREA NITROGEN 20 mg/dl (7-18); BUN/CREATININE RATIO 15.1 (10-20); CALCIUM 8.7 mg/dl (8.5-10.1); CARBON DIOXIDE 28 mmol/L (21-32); CHLORIDE 107 mmol/L (98-107); GLUCOSE 127 mg/dl (70-99); POTASSIUM 4.1 mmol/L (3.5-5.1); SODIUM 141 mmol/L (136-145)
--- NOTE | 2017-03-31 14:27 | CODING QUERY MEDICAL NECESSITY ---
CQSUPPORTING DIAGNOSIS NEEDED A supporting diagnosis is required for the test/procedure performed on this patient in order for us to be reimbursed by the patient's insurance. Please provide a supporting diagnosis for the following test/procedure listed below next to the test name along with your signature. *If there is no additional diagnosis for this patient that would support the following test/procedure please document that below next to the test/procedure. Test(s)/Procedure(s) that require a supporting diagnosis: DOS 03/19/17 PROSTATE SPECIFIC TEST Provider Signature: Date: Thank you Marilee Kim [employer] Information Management Once completed, please kindly fax back to [phone] For questions please call [phone]
== END | disposition home or self-care (01) ==
LOC: C.LABBC 11:12
PROVIDERS: ATTEND Urology
DX: N35.9 Urethral stricture, unspecified (principal); I10 Essential (primary) hypertension; R73.9 Hyperglycemia, unspecified; D64.9 Anemia, unspecified

== ENCOUNTER 2017-04-23 21:46 | Emergency (ER) | payer OTHER ==
[~2017-04-23] VITALS: Ht 177.8 cm; Wt 106.0 kg
[~2017-04-23 21:46] MED LIST changes: +ATOR10TA82 PO; -ATOR10TA88 PO
[2017-04-23 21:52] VITALS: Ht 177.8 cm; Wt 106.0 kg
[2017-04-23] MEDS ORDERED: OXYCODONE HCL IR 5 MG TAB (IMMEDIATE RELEASE) PO STA (21:56)
[2017-04-23] MEDS ORDERED: LIDODERM (LIDOCAINE) PATCH 5% TD STA (21:56)
--- NOTE | 2017-04-23 22:06 | EMERGENCY ROOM VISIT NOTE ---
History Report prepared by Yancy: Kobe Guerrero Under the Supervision of: Dr. Austin Alejandro M.D. First contact with patient: 21:50 Stated Complaint: FALL SWELLING ON BACK & BRUISING History of Present Illness The patient is a 86 year old male who presents to the Emergency Room with complaints of constant left shoulder pain following a fall this morning. The patient states that he fell backwards over a pair of shoes and hit his left shoulder and back. He denies any headache or LOC. He notes that his pain is a 6/ 10. He notes that he is able to walk normally but becomes dizzy from time to time. He reports that he took a Tylenol with mild relief to his symptoms. Source of History: patient Onset: this morning Position: shoulder (left) Symptom Intensity: pain 6/10 Timing: constant Associated Symptoms: + back pain, No LOC, No headache Note: the patient states that he occasionally becomes dizzy when he walks Review of Systems See HPI for pertinent positives & negatives. A total of 10 systems reviewed and were otherwise negative. Past Medical & Surgical Medical Problems: (1) Aortic Valve Disorder (2) Coronary Atherosclerosis Of [place] Coronary Vessel (3) Diab Teri Wo Compl, Type Ii Or Unspec Type, Not Uncntrld (4) Esophageal Reflux (5) Forehead laceration (6) Forehead laceration (7) Hx-Prostatic Malignancy (8) Hyperlipidemia Nec/Nos (9) Malign Neopl Prostate (10) Osteoarthros Nos-Unspec (11) Urinary retention Surgical Problems: (1) Hx of appendectomy Family History FH: heart disease Social History Smoking Status: Former Smoker Drug Use: none Marital Status: Housing Status: lives alone Occupation Status: retired Current/Historical Medications Scheduled Acetaminophen (Tylenol), 500-1,000 MG PO PRN Amoxicillin (Amoxil), 2,000 MG PO UD Aspirin (Aspirin Ec), 81 MG PO QAM Atorvastatin (Lipitor), 10 MG PO QAM Calcium Carbonate (Tums), 2 TAB PO PRN Cholecalciferol (Vitamin D3), 1 TAB PO QAM Docusate Sodium (Docusate Sodium), 2 TAB PO PRN Donepezil Hydrochloride (Donepezil Hcl), 1 TAB PO HS Fluticasone Propionate (Nasal) (Flonase Allergy Relief), 2 SPRAYS JUNI DAILY Losartan Potassium (Cozaar), 0.5 TAB PO QAM Methenamine Hippurate (Methenamine Hippurate), 1 TAB PO QPM Metoprolol Succ (Toprol Xl) (Toprol-Xl), 50 MG PO BID Phenazopyridine Hcl (Pyridium), 200 MG PO TID Rivaroxaban (Xarelto), 20 MG PO QPM Allergies Coded Allergies: Lisinopril (Verified Adverse Reaction, Mild, DIARRHEA, 04/23/17) Physical Exam Vital Signs Date Time Temp Pulse Resp B/P (MAP) Pulse Ox O2 Delivery O2 Flow Rate FiO2 04/24/17 01:35 36.6 113 21 160/105 98 04/24/17 01:16 161/105 04/24/17 01:15 115 14 98 Nasal Cannula 3.0 04/24/17 01:01 138/102 04/24/17 01:00 115 17 98 04/24/17 00:58 139/97 04/24/17 00:55 115 21 98 04/24/17 00:46 160/104 04/24/17 00:40 114 25 98 04/24/17 00:31 164/108 04/24/17 00:27 166/106 04/24/17 00:25 112 21 100 04/24/17 00:10 81 15 98 04/23/17 23:55 112 19 98 04/23/17 23:35 94 Nasal Cannula 2.0 04/23/17 23:35 90 18 154/90 94 Nasal Cannula 2.0 04/23/17 23:31 90 Room Air 04/23/17 23:30 89 04/23/17 21:52 36.6 104 18 129/87 96 Room Air Physical Exam GENERAL: Patient is a healthy-appearing well-nourished male HEAD: Normocephalic atraumatic EYES: Ocular movements intact pupils equal and react to light OROPHARYNX mucous membranes are moist no exudates present no erythema or edema present NECK: Supple no nuchal rigidity CHEST: Good equal expansion LUNGS: Clear and equal to auscultation CARDIAC: Normal S1 and S2 ABDOMEN: Soft nontender no guarding BACK: No CVA tenderness EXTREMITIES: Normal muscle strength in all groups no clubbing cyanosis or edema , point tenderness to left humeral head NEURO: Patient is following commands and answering questions appropriately. Alert and oriented x3 Cranial Nerves 2-12 grossly intact Medical Decision & Procedures ER Provider Diagnostic Interpretation: Radiology results as stated below per my review and radiologist interpretation: L SHOULDER MIN 2 VIEWS ROUTINE FINDINGS: Severe glenohumeral osteoarthritis with multiple large loose bodies within left joint space measuring up to 10 mm. Remodeling of the glenoid is noted. Moderate AC joint osteoarthritis. No acute fracture or dislocation. Prior median sternotomy. Atherosclerosis of the aorta. Atherosclerosis of the carotid vasculature also noted. IMPRESSION: 1. No acute fracture or dislocation. 2. Severe left glenohumeral osteoarthritis with multiple large loose bodies. The above report was generated using voice recognition software. It may contain grammatical, syntax or spelling errors. Electronically signed by: Zeb Lane M.D. 04/23/2017 11:06 PM ABD/PELVIS NO IV OR ORAL CONT FINDINGS: Small left pleural effusion with dependent subsegmental consolidation suggesting atelectasis. Mild dependent atelectasis on the right is present as well. No pneumoperitoneum. Imaged inferior cardiac chambers are enlarged. Prior median sternotomy. [place] coronary arterial calcifications are present. Prosthetic aortic valve. Evaluation of the solid abdominal organs is limited without the use of contrast. Within the limitations of the study, the liver, spleen, and right adrenal gland are unremarkable. The left adrenal gland is thickened suggesting adrenal hyperplasia. Moderate diffuse pancreatic atrophy. Cholelithiasis without CT evidence of acute cholecystitis. Right-sided nephrolithiasis with stones in the superior pole measuring up to 8 mm. No ureteral calculi or hydronephrosis identified. Blackwood catheter noted within a collapsed or bladder lumen. Air within the bladder is likely secondary to instrumentation. Brachy therapy seeds of the prostate. Moderate to extensive atherosclerotic plaquing of the abdominal aorta without aneurysm. No bulky adenopathy. No bowel obstruction. A few nonspecific calcifications of the mid mesentery. Prior appendectomy. Lipoma of the anterolateral left abdominal wall beneath the external oblique musculature measures 2.4 x 10.3 cm. There is a large acute hyperattenuating hematoma of the posterior lateral flank and abdominal wall measuring up to 19.9 x 4.0 x 22.5 cm, extending above the [id number] into the region of the latissimus dorsi musculature and inferior extent to the level of the pelvis. No retroperitoneal hematoma. Acute mildly displaced fractures are seen within the lateral aspects of the left ninth, 10th and 11th ribs. Sigmoidal scoliosis of the spine. Multilevel advanced facet arthropathy. Multilevel intervertebral disc space narrowing and spondylitic changes also seen. Mild bilateral gynecomastia. IMPRESSION: 1. Large acute hematoma of the posterior lateral flank and lateral abdominal wall extends from the latissimus dorsi musculature inferiorly to the level of the pelvis measuring up to 22.5 cm in length. 2. Acute mildly displaced fractures of the posterior lateral left 9th, 10th and 11th ribs. 3. Small left pleural effusion with dependent subsegmental consolidation suggesting atelectasis. 4. No definite evidence of solid organ injury. 5. Cholelithiasis without CT evidence of acute cholecystitis. Right-sided nephrolithiasis. The above report was generated using voice recognition software. It may contain grammatical, syntax or spelling errors. Electronically signed by: Zeb Lane M.D. 04/23/2017 11:[address] L SPINE Impression: No evidence for acute fracture or lumbar spine. Right convex scoliosis of lumbar spine. Extensive degenerative changes. Incidental findings: Atherosclerotic calcifications of the aorta and its branches. Nonobstructing right renal stones. Left sided rib fractures as described on CT of chest. Radiologist: Austin Baker MD CT T SPINE Impression: No evidence for an acute fracture of thoracic spine. Degenerative changes thoracic spine. CT chest will be separately reported. Radiologist: Austin Baker MD CT HEAD: Impression: No acute intracranial finding. Comment: Ventricles, sulci, and cisterns are enlarged due to atrophy No midline shift No intraparenchymal hemorrhage No extra axial fluid collection Calvarium is intact Sinuses are clear Radiologist: Austin Baker MD CT CHEST Without Contrast: Impression: Acute fractures of ninth, 10th, and 11th ribs rib fractures with resulting mild- to-moderate hemothorax and mild atelectasis versus contusion of the left lung base. No pneumothorax. Incidental findings: Nonobstructing right renal stones. Atherosclerotic calcifications of the aorta and its branches. Aortic valve replacement. Coronary artery calcifications. Severe degenerative changes left glenohumeral joint. Radiologist: Austin Baker MD CT C SPINE: No acute fracture or malalignment. Some mild motion artifact. Normal alignment of cranial-cervical junction. Severe atlantodental osteoarthritis. Moderate C6-C7 disc degeneration. Mild C3-C4, C4-C5 and C5-C6 facet arthropathy. Moderate narrowing of the left C4-C5 and C5-C6 neural foramina secondary to facet osteophytes No prevertebral soft tissue swelling. Radiologist: Austin Baker MD Laboratory Results 04/23/17 23:20 Red Blood Count 2.90, Mean Corpuscular Volume 91.7, Mean Corpuscular Hemoglobin 29.3, Mean Corpuscular Hemoglobin Concent 32.0, Mean Platelet Volume 10.0, Neutrophils (%) (Auto) 81.8, Lymphocytes (%) (Auto) 8.9, Monocytes (%) (Auto) 8.9, Eosinophils (%) (Auto) 0.0, Basophils (%) (Auto) 0.1, Neutrophils # (Auto) 8.69, Lymphocytes # (Auto) 0.95, Monocytes # (Auto) 0.94, Eosinophils # (Auto) 0.00, Basophils # (Auto) 0.01 04/23/17 23:20 Test 04/23/17 23:20 04/23/17 23:23 04/23/17 23:34 04/24/17 00:40 White Blood Count 10.62 K/uL (4.8-10.8) Red Blood Count 2.90 M/uL (4.7-6.1) Hemoglobin 8.5 g/dL (14.0-18.0) Hematocrit 26.6 % (42-52) Mean Corpuscular Volume 91.7 fL (80-100) Mean Corpuscular Hemoglobin 29.3 pg (25-34) Mean Corpuscular Hemoglobin Concent 32.0 g/dl (32-36) Platelet Count 195 K/uL (130-400) Mean Platelet Volume 10.0 fL (7.4-10.4) Neutrophils (%) (Auto) 81.8 % Lymphocytes (%) (Auto) 8.9 % Monocytes (%) (Auto) 8.9 % Eosinophils (%) (Auto) 0.0 % Basophils (%) (Auto) 0.1 % Neutrophils # (Auto) 8.69 K/uL (1.4-6.5) Lymphocytes # (Auto) 0.95 K/uL (1.2-3.4) Monocytes # (Auto) 0.94 K/uL (0.11-0.59) Eosinophils # (Auto) 0.00 K/uL (0-0.5) Basophils # (Auto) 0.01 K/uL (0-0.2) RDW Standard Deviation 49.4 fL (36.4-46.3) RDW Coefficient of Variation 14.7 % (11.5-14.5) Immature Granulocyte % (Auto) 0.3 % Immature Granulocyte # (Auto) 0.03 K/uL (0.00-0.02) Basophilic Stippling OCCASIONAL Est Creatinine Clear Calc Drug Dose 42.1 ml/min Estimated GFR () 48.3 Estimated GFR (Non- 41.6 BUN/Creatinine Ratio 25.7 (10-20) Calcium Level 8.7 mg/dl (8.5-10.1) Total Bilirubin 0.4 mg/dl (0.2-1) Direct Bilirubin 0.1 mg/dl (0-0.2) Aspartate Amino Transf (AST/SGOT) 16 U/L (15-37) Alanine Aminotransferase (ALT/SGPT) 17 U/L (12-78) Alkaline Phosphatase 45 U/L (45-117) Total Creatine Kinase 140 U/L (39-308) Creatine Kinase MB 2.1 ng/ml (0.5-3.6) Creatine Kinase MB Ratio 1.5 (0-3.0) Troponin I 0.016 ng/ml (0-0.045) Total Protein 6.4 gm/dl (6.4-8.2) Albumin 3.3 gm/dl (3.4-5.0) Bedside Glucose 146 mg/dl (70-99) Bedside Hemoglobin 8.5 g/dl (14.0-18.0) Bedside Hematocrit 25 % (42-52) Bedside Sodium 140 mEq/L (135-144) Bedside Potassium 4.4 mEq/L (3.3-5.0) Bedside Chloride 100 mEq/L (101-112) Bedside Total CO2 28 mEq/l (24-31) Anion Gap 17.0 mmol/L (16-25) Bedside Blood Urea Nitrogen 36 mg/dl (7-18) Bedside Creatinine 1.5 mg/dl (0.6-1.3) Bedside Glucose (other) 142 mg/dl (70-99) Bedside Ionized Calcium (Sally) 1.20 mmol/l (1.12-1.32) Urine Color ORANGE Urine Appearance TURBID (CLEAR) Urine pH 5.0 (4.5-7.5) Urine Specific [place] 1.025 (1.000-1.030) Urine Protein 2+ (NEG) Urine Glucose (UA) NEG (NEG) Urine Ketones NEG (NEG) Urine Occult Blood 3+ (NEG) Urine Nitrite POS (NEG) Urine Bilirubin NEG (NEG) Urine Urobilinogen NEG (NEG) Urine Leukocyte Esterase MODERATE (NEG) Urine WBC (Auto) >30 /hpf (0-5) Urine RBC (Auto) >30 /hpf (0-4) Urine Hyaline Casts (Auto) 0 /lpf (0-5) Urine Epithelial Cells (Auto) 0-5 /lpf (0-5) Urine Bacteria (Auto) 2+ (NEG) Labs reviewed by ED physician. Medications Administered Medications (Trade) Dose Ordered Sig/Alva Route Start Time Stop Time Status Last Admin Dose Admin Lidocaine (Lidoderm Patch 5%) 1 patch QAM STAT TD 04/23/17 21:56 04/23/17 21:58 DC 04/23/17 22:07 1 PATCH Oxycodone HCl (Roxicodone Immediate Rel Tab) 5 mg NOW STAT PO 04/23/17 21:56 04/23/17 21:58 DC 04/23/17 22:07 5 MG Sodium Chloride 1,000 ml @ 999 mls/hr Q1H1M STAT IV 04/23/17 23:07 04/24/17 00:07 DC 04/23/17 23:30 999 MLS/HR Prothrombin Complex Concent (Human) 5000 unit/ Syringe 200 ml @ 10 mls/min TODAY@0030 ONCE IV 04/24/17 00:30 04/24/17 00:49 DC 04/24/17 00:50 10 MLS/MIN ECG Indication: back/shoulder pain Rate (beats per minute): 103 Rhythm: sinus tachycardia Findings: LBBB, other (2nd degree AV block) ED Course 2151: Past medical records reviewed. The patient was evaluated in room C6. A complete history and physical examination was performed. 2155: Oxycodone HCl 5mg PO, Lidocaine 1 patch TD 2307: Sodium Chloride 1000 ml @ 999 mls/hr 0030: Prothrombin Complex Concent (Human) 5000 unit/Syringe 200ml@10mls/min Protocol IV 0044: Upon reexamination the patient is . I discussed results and treatment plan with the patient. He verbalizes agreement and understanding. I spoke with Dr. eNal from [facility]. He will be transferred for further treatment Medical Decision Differential diagnosis: Etiologies such as fracture, dislocation, intra-abdominal, pneumothorax, intrathoracic , intracranial, neurologic, as well as other traumatic pathologies were entertained. This is an 86-year-old male that presents to the emergency department complaining of a fall earlier today. The patient is complaining of left shoulder pain and flank pain. Based on the patient's complaints he was sent for an x-ray of the shoulder and a CAT scan of the abdomen. When I realized the nature the patient's injuries an IV was established and a laboratory blood work was obtained. The patient's hemoglobin is normally 13 and is now 8.5. The patient was then sent back for further CAT scans of his head chest and spine. Based on the nature the patient's injuries I did did discuss the patient 's prognosis with his family who asked that he be sent to [facility]. I did discuss the case with the on-call trauma physician who asked that the patient's overall toe be reversed. For this the patient was given KCentra. The patient was transferred to [facility] who transferred the patient [place]. As the patient fell more than 3 hours ago I feel he is not a candidate for TXA.. [place] Drug Monitoring Program Search Results: patient reviewed within database Blood Pressure Screening Patient's blood pressure: Elevated blood pressure Consults Time Called: 40 Consulting Physician: Dr. Neal - [facility] Returned Call: 0044 I discussed the patient's case with Dr. Dr. Neal - [facility], he has agreed to evaluate the patient for further management and care. Impression Primary Impression: Fall Additional Impressions: Hemothorax Rib fractures [facility] I have personally spent greater than 90 minutes of critical care time in the direct management of this patient. This includes bedside care, interpretation of diagnostic studies, and testing, discussion with consultants, patient, and family members, and other required patient management activities. This 90 minutes is in excess of all separately billable procedures. Scribe Attestation The scribe's documentation has been prepared under my direction and personally reviewed by me in its entirety. I confirm that the note above accurately reflects all work, treatment, procedures, and medical decision making performed by me. Departure Information Dispostion Transfer Acute Care Facility Referrals Abdoul Fuchs M.D. (PCP) Problem Qualifiers Primary Impression: Fall Encounter type: initial encounter Qualified Codes: W19.XXXA - Unspecified fall, initial encounter Additional Impressions: Rib fractures Encounter type: initial encounter Rib fracture type: multiple ribs Fracture type: closed Laterality: left Qualified Codes: S22.42XA - Multiple fractures of ribs, left side, initial encounter for closed fracture
[2017-04-23] MEDS ORDERED: FLUT0.15 NAE (22:24)
[2017-04-23] MEDS ORDERED: METH-1305 PO (22:24)
[2017-04-23] MEDS ORDERED: PHEN-775 PO (22:24)
--- NOTE | 2017-04-23 23:02 | DIAGNOSTIC IMAGING REPORT ---
ABD/PELVIS NO IV OR ORAL CONT HISTORY: 86 years-old Male Left f;lank pain, contusion acute left flank pain and contusion status post trauma COMPARISON: CT abdomen and pelvis 09/27/2016 TECHNIQUE: Multiple axial CT images of the abdomen and pelvis were obtained without contrast. A dose lowering technique was used consistent with the principals of KHOI. FINDINGS: Small left pleural effusion with dependent subsegmental consolidation suggesting atelectasis. Mild dependent atelectasis on the right is present as well. No pneumoperitoneum. Imaged inferior cardiac chambers are enlarged. Prior median sternotomy. [place] coronary arterial calcifications are present. Prosthetic aortic valve. Evaluation of the solid abdominal organs is limited without the use of contrast. Within the limitations of the study, the liver, spleen, and right adrenal gland are unremarkable. The left adrenal gland is thickened suggesting adrenal hyperplasia. Moderate diffuse pancreatic atrophy. Cholelithiasis without CT evidence of acute cholecystitis. Right-sided nephrolithiasis with stones in the superior pole measuring up to 8 mm. No ureteral calculi or hydronephrosis identified. [place] catheter noted within a collapsed or bladder lumen. Air within the bladder is likely secondary to instrumentation. Brachy therapy seeds of the prostate. Moderate to extensive atherosclerotic plaquing of the abdominal aorta without aneurysm. No bulky adenopathy. No bowel obstruction. A few nonspecific calcifications of the mid mesentery. Prior appendectomy. Lipoma of the anterolateral left abdominal wall beneath the external oblique musculature measures 2.4 x 10.3 cm. There is a large acute hyperattenuating hematoma of the posterior lateral flank and abdominal wall measuring up to 19.9 x 4.0 x 22.5 cm, extending above the [id number] into the region of the latissimus dorsi musculature and inferior extent to the level of the pelvis. No retroperitoneal hematoma. Acute mildly displaced fractures are seen within the lateral aspects of the left ninth, 10th and 11th ribs. Sigmoidal scoliosis of the spine. Multilevel advanced facet arthropathy. Multilevel intervertebral disc space narrowing and spondylitic changes also seen. Mild bilateral gynecomastia. IMPRESSION: 1. Large acute hematoma of the posterior lateral flank and lateral abdominal wall extends from the latissimus dorsi musculature inferiorly to the level of the pelvis measuring up to 22.5 cm in length. 2. Acute mildly displaced fractures of the posterior lateral left 9th, 10th and 11th ribs. 3. Small left pleural effusion with dependent subsegmental consolidation suggesting atelectasis. 4. No definite evidence of solid organ injury. 5. Cholelithiasis without CT evidence of acute cholecystitis. Right-sided nephrolithiasis. The above report was generated using voice recognition software. It may contain grammatical, syntax or spelling errors. Electronically signed by: Zeb Lane M.D. 04/23/2017 11:00 PM Dictated Date/Time: 04/23/2017 10:46 PM
[2017-04-23] MEDS ORDERED: SODIUM CHLORIDE 0.9% 1000ML 1,000 ML IV STA (23:07)
--- NOTE | 2017-04-23 23:07 | DIAGNOSTIC IMAGING REPORT ---
L SHOULDER MIN 2 VIEWS ROUTINE HISTORY: 86 years-old Male Pt c/o left shoulder pain acute left shoulder pain status post fall COMPARISON: Chest radiographs 04/12/2016 TECHNIQUE: 3 views of the left shoulder FINDINGS: Severe glenohumeral osteoarthritis with multiple large loose bodies within left joint space measuring up to 10 mm. Remodeling of the glenoid is noted. Moderate AC joint osteoarthritis. No acute fracture or dislocation. Prior median sternotomy. Atherosclerosis of the aorta. Atherosclerosis of the carotid vasculature also noted. IMPRESSION: 1. No acute fracture or dislocation. 2. Severe left glenohumeral osteoarthritis with multiple large loose bodies. The above report was generated using voice recognition software. It may contain grammatical, syntax or spelling errors. Electronically signed by: Zeb Lane M.D. 04/23/2017 11:06 PM Dictated Date/Time: 04/23/2017 11:04 PM
[2017-04-23 23:35] VITALS: O2SAT 94
[2017-04-23 23:35] LABS: BASO % 0.1 %; BASO ABS # 0.01 K/uL (0-0.2); HEMATOCRIT 26.6 % (42-52); IG% 0.3 %; LYMPH % 8.9 %; LYMPH ABS # 0.95 K/uL (1.2-3.4); MEAN CELL VOLUME 91.7 fL (80-100); MEAN CORPUSCULAR HEMOGLOBIN 29.3 pg (25-34); MONO % 8.9 %; NEUT % 81.8 %; PLATELET COUNT 195 K/uL (130-400); WHITE BLOOD COUNT 10.62 K/uL (4.8-10.8)
[2017-04-23 23:43] LABS: ISTAT CREATININE 1.5 mg/dl (0.6-1.3); ISTAT HEMOGLOBIN 8.5 g/dl (14.0-18.0); ISTAT IONIZED CALCIUM 1.2 mmol/l (1.12-1.32)
[2017-04-23 23:55] LABS: BUN/CREATININE RATIO 25.7 (10-20); CALCIUM 8.7 mg/dl (8.5-10.1); CREATININE 1.48 mg/dl (0.60-1.40); POTASSIUM 4.5 mmol/L (3.5-5.1)
[2017-04-24] LABS: CKMB/CK RATIO 1.5 (0-3.0)
[2017-04-24 00:01] LABS: COMPLETE YES
[2017-04-24] MEDS ORDERED: PROTHROMBIN COMP CONC- KCENTRA 5,000 UNIT in SYRINGE 0 ML IV STA (00:24)
[2017-04-24] MEDS ORDERED: PROTHROMBIN COMP CONC- KCENTRA 5,000 UNIT in SYRINGE 0 ML IV ONE (00:30)
[2017-04-24 00:57] LABS: URINE APPEARANCE TURBID (CLEAR); URINE BILIRUBIN NEG (NEG); URINE COLOR ORANGE; URINE EPITHELIAL CELL AUTO 0-5 /lpf (0-5); URINE NITRITE POS (NEG); URINE SPECIFIC GRAVITY 1.025 (1.000-1.030); UROBILINOGEN NEG (NEG)
[2017-04-24 01:09] LABS: MANUAL MICROSCOPIC REQUIRED? NO; REVIEW REQ? NO
[2017-04-24 01:35] VITALS: BP 160/105; PULSE 113; TEMP 36.6; O2SAT 98
--- NOTE | 2017-04-24 06:38 | DIAGNOSTIC IMAGING REPORT ---
CERVICAL SPINE W/O CT DOSE: HISTORY: Trauma Pt c/o fall TECHNIQUE: Multiaxial CT images of the cervical spine were performed and reformatted in the sagittal and coronal plane without the use of contrast. A dose lowering technique was utilized adhering to the principles of ALARA. COMPARISON: None. FINDINGS: Vertebral body stature is normal. No evidence for compression deformity. Moderate degenerative disc change throughout. Moderate degenerative change posterior elements. No acute process. C1-C2 complex is intact. IMPRESSION: Moderate degenerative change. No acute process. The above report was generated using voice recognition software. It may contain grammatical, syntax or spelling errors. Electronically signed by: Cooper Holm M.D. 04/24/2017 6:36 AM Dictated Date/Time: 04/24/2017 6:35 AM
--- NOTE | 2017-04-24 06:47 | DIAGNOSTIC IMAGING REPORT ---
THORACIC SPINE WITHOUT CT DOSE: 2083.57 mGy.cm HISTORY: Trauma Pt c/o fall TECHNIQUE: Multiaxial CT images of the thoracic spine were performed and reformatted in the sagittal and coronal plane without the use of contrast. A dose lowering technique was utilized adhering to the principles of ALARA. COMPARISON: None. FINDINGS: Vertebral body stature is unremarkable. No evidence for an acute compression deformity. Degenerative disc changes throughout. Degenerative changes of the vertebral endplates throughout. Slight scoliosis. Old healed fracture right first rib. Small left pleural effusion. Posterior arch is intact at all levels. Fractures left posterior 10th and 11th ribs. IMPRESSION: 1. Fractures left posterior 10th and 11th ribs. 2. Left pleural effusion. 3. No acute process specifically of the thoracic spine. 4. Degenerative disc changes noted throughout. The above report was generated using voice recognition software. It may contain grammatical, syntax or spelling errors. Electronically signed by: Cooper Holm M.D. 04/24/2017 6:45 AM Dictated Date/Time: 04/24/2017 6:39 AM
--- NOTE | 2017-04-24 07:14 | DIAGNOSTIC IMAGING REPORT ---
HEAD CT NONCONTRAST CT DOSE: HISTORY: Pt c/o fall TECHNIQUE: Multiaxial CT images of the head were performed without the use of intravenous contrast. Automated exposure control was utilized for this study. A dose lowering technique was utilized adhering to the principles of ALARA. Comparison: Head CT 12/15/2013. Findings: The paranasal sinuses and mastoid air cells are clear. The calvarium and skull base are intact. There is no mass, hematoma, midline shift, acute infarct. White matter hypodensity is nonspecific but suggestive of microvascular ischemic change. The ventricles and sulci demonstrate mild age-related involutional changes. Impression: No acute intracranial abnormality. Atrophy and microvascular ischemic changes. Electronically signed by: Rosendo John M.D. 04/24/2017 7:13 AM Dictated Date/Time: 04/24/2017 7:06 AM
--- NOTE | 2017-04-24 07:25 | DIAGNOSTIC IMAGING REPORT ---
LUMBAR SPINE CT CT DOSE: HISTORY: Pt c/o fall TECHNIQUE: Multiaxial CT images of the lumbar spine were performed and reformatted in the sagittal and coronal plane without the use of contrast. A dose lowering technique was utilized adhering to the principles of ALARA. COMPARISON: None. FINDINGS: Left posterior 11th rib fracture. Dextroscoliosis of the lumbar spine. Disc space narrowing at L3-L4 and L2-L3. Moderate facet osteoarthritis within the lower lumbar spine. No fracture or subluxation. Right-sided nephrolithiasis. IMPRESSION: No fractures within the lumbar spine. Electronically signed by: Rosendo John M.D. 04/24/2017 7:23 AM Dictated Date/Time: 04/24/2017 7:21 AM
--- NOTE | 2017-04-24 07:25 | DIAGNOSTIC IMAGING REPORT ---
CT SCAN OF THE CHEST WITHOUT IV CONTRAST CLINICAL HISTORY: Fall. COMPARISON STUDY: Chest x-ray dated 04/12/2016. Chest CT scans dated 01/19/2015 and 06/28/2012. TECHNIQUE: CT scan of the thorax was performed from the thoracic inlet to the upper abdomen. Images are reviewed in the axial, sagittal, and coronal planes. IV contrast was not administered for this examination as per the referring clinician. Note that the examination was performed in suboptimal fashion without IV contrast for the history of trauma. A dose lowering technique was utilized adhering to the principles of ALARA. The examination is degraded by motion artifact as well as by streak artifact from the patient's arms which could not be elevated above the chest. FINDINGS: Thyroid: Imaged portions of the thyroid gland are normal in size and attenuation. Thoracic aorta: There is atherosclerotic calcification of the thoracic aorta, which is normal in caliber and demonstrates standard 3-vessel arch anatomy. Heart: The patient is status post midline sternotomy. The heart is mildly enlarged and without pericardial effusion. The coronary arteries are densely calcified. Lungs and pleural spaces: Evaluation of the lung parenchyma is significantly degraded by respiratory motion artifact. There is a small hemothorax with associated consolidation seen at the left lung base. No pneumothorax is identified. The right lung is grossly clear. The trachea and central airways are patent. A 3 mm right apical nodule seen on image #45 is unchanged from 2015 and of doubtful significance. Mediastinum: There is no mediastinal lymphadenopathy. Alsia: Not well assessed without IV contrast. Axillae: There is no axillary lymphadenopathy. Upper abdomen: There is a small hiatal hernia. The visualized kidneys appear atrophic. Nonobstructing right renal calculi are identified and measure up to 10 mm. There is nodular thickening of both adrenal glands. Glandular atrophy is observed in the visualized pancreas. Skeletal structures: The skeletal structures are osteopenic. Degenerative change and hyperkyphosis are seen in the thoracic spine. Advanced arthritic change is noted in the shoulders. Large calcified joint bodies are present in the left shoulder. No lytic or blastic bony lesions are seen. There are fractures of the left 10th and 11th ribs near the costovertebral junction. There are also fractures of the left posterior lateral 9th through 11th ribs. The 10th rib fracture is comminuted with distracted fragments. Note that the 10th and 11th ribs are fractured at 2 sites. Soft tissues: There is intramuscular hematoma identified in the left lower back with overlying soft tissue contusion. This is best seen on axial image #253. IMPRESSION: 1. Streak and motion compromised examination. 2. There are several left lower rib fractures as above. Note that several ribs are fractured at 2 places. 3. There is intramuscular hematoma with overlying soft tissue contusion seen in the left lower back overlying the rib fractures. 4. Small left-sided hemothorax. No pneumothorax is seen. 5. There is consolidation at the left lung base. This likely represents atelectasis secondary to hemothorax. Correlate clinically for evidence of superimposed aspiration pneumonitis/pneumonia versus pulmonary contusion. 5. The right lung appears clear. 6. Nonobstructing right renal calculi. 7. Additional findings as above. Electronically signed by: Vlad Cagle M.D. 04/24/2017 7:23 AM Dictated Date/Time: 04/24/2017 7:14 AM
== END 2017-04-24 01:36 | disposition short-term general hospital (02) ==
LOC: EDBD 21:46 → C.EDC 21:47
DX: S22.42XA Multiple fractures of ribs, left side, initial encounter for closed fracture (principal); S20.222A Contusion of left back wall of thorax, initial encounter; J94.2 Hemothorax; D64.9 Anemia, unspecified; W17.89XA Other fall from one level to another, initial encounter; I35.8 Other nonrheumatic aortic valve disorders; I25.10 Atherosclerotic heart disease of native coronary artery without angina pectoris; E11.9 Type 2 diabetes mellitus without complications; Z85.46 Personal history of malignant neoplasm of prostate; Z79.899 Other long term (current) drug therapy; Z87.891 Personal history of nicotine dependence

== ENCOUNTER → 2017-05-27 | Outpatient (CLI) | payer OTHER ==
[~2017-05-27] MED LIST changes: -CALCTAB7 PO; -CIPR-255 PO; -FESO4TAB PO; +FLUT0.15 NAE; +METH-1305 PO; +PHEN-775 PO
[2017-05-27 13:09] LABS: BASO % 0.3 %; BASO ABS # 0.02 K/uL (0-0.2); EOS % 0.8 %; HEMATOCRIT 28.7 % (42-52); IG% 0.3 %; LYMPH % 15.1 %; LYMPH ABS # 1.11 K/uL (1.2-3.4); MEAN CELL VOLUME 93.5 fL (80-100); MEAN CORPUSCULAR HEMOGLOBIN 28.7 pg (25-34); MEAN CORPUSCULAR HGB CONC 30.7 g/dl (32-36); MEAN PLATELET VOLUME 9.6 fL (7.4-10.4); MONO % 9.5 %; PLATELET COUNT 201 K/uL (130-400); RED BLOOD COUNT 3.07 M/uL (4.7-6.1); WHITE BLOOD COUNT 7.34 K/uL (4.8-10.8)
[2017-05-27 14:25] LABS: COMPLETE YES; HYPOCHROMIA PRESENT
[2017-05-27 16:44] LABS: HYPERSEGMENTED POLYS 1+
== END | disposition home or self-care (01) ==
LOC: C.LABBC 12:10
PROVIDERS: ATTEND Physician Assistant
DX: J94.2 Hemothorax (principal)

== ENCOUNTER 2017-10-03 20:19 | Inpatient (IN) | payer OTHER ==
[~2017-10-03] VITALS: Ht 177.8 cm; Wt 99.5 kg
[~2017-10-03 20:19] MED LIST changes: -DONE1TAB11 PO; +DONE5TAB26 PO; -FLUT0.15 NAE; -METO50TA7 PO; +METO50TA8 PO; -PHEN-775 PO
--- NOTE | 2017-10-03 20:35 | EMERGENCY ROOM VISIT NOTE ---
History Report prepared by Yancy: Shilpa Contreras Under the Supervision of: Dr. Harpreet Bolanos M.D. First contact with patient: 20:24 Chief Complaint: SYNCOPE (NEAR SYNCOPE) Stated Complaint: NEAR SYNCOPE History of Present Illness The patient is a 87 year old male who presents to the Emergency Room with complaints of a near syncopal episode a few hours [employer]. He states his arms, face , legs, and hands were twitching and describes the feeling as "jabbing." He denies any LOC, fevers, coughing, urinary symptoms, headaches, or abdominal pain. Source of History: patient Onset: a few hours [employer] Position: other (global) Symptom Intensity: "jabbing" Quality: other (twitching) Associated Symptoms: No LOC, No fevers, No headache, No abdominal pain, No urinary symptoms Review of Systems See HPI for pertinent positives & negatives. A total of 10 systems reviewed and were otherwise negative. Past Medical & Surgical Medical Problems: (1) Aortic Valve Disorder (2) Coronary Atherosclerosis Of [place] Coronary Vessel (3) Diab Teri Wo Compl, Type Ii Or Unspec Type, Not Uncntrld (4) Esophageal Reflux (5) Forehead laceration (6) Forehead laceration (7) Hx-Prostatic Malignancy (8) Hyperlipidemia Nec/Nos (9) Malign Neopl Prostate (10) Osteoarthros Nos-Unspec (11) Urinary retention Surgical Problems: (1) Hx of appendectomy Old medical records were reviewed. Nurse's notes were reviewed and I agree with. Family History FH: heart disease Social History Smoking Status: Former Smoker Drug Use: none Marital Status: Housing Status: lives alone Occupation Status: retired Current/Historical Medications Scheduled Acetaminophen (Tylenol), 500-1,000 MG PO PRN Amoxicillin (Amoxil), 2,000 MG PO UD Aspirin (Aspirin Ec), 81 MG PO QAM Atorvastatin (Lipitor), 10 MG PO QAM Calcium Carbonate (Tums), 2 TAB PO PRN Cholecalciferol (Vitamin D3), 1 TAB PO QAM Docusate Sodium (Docusate Sodium), 2 TAB PO PRN Donepezil Hydrochloride (Donepezil Hcl), 1 TAB PO HS Fluticasone Propionate (Nasal) (Flonase Allergy Relief), 2 SPRAYS JUNI DAILY Losartan Potassium (Cozaar), 0.5 TAB PO QAM Methenamine Hippurate (Methenamine Hippurate), 1 TAB PO QPM Metoprolol Succ (Toprol Xl) (Toprol-Xl), 50 MG PO BID Phenazopyridine Hcl (Pyridium), 200 MG PO TID Rivaroxaban (Xarelto), 20 MG PO QPM Allergies Coded Allergies: Lisinopril (Verified Adverse Reaction, Mild, DIARRHEA, 04/23/17) Physical Exam Vital Signs Date Time Temp Pulse Resp B/P (MAP) Pulse Ox O2 Delivery O2 Flow Rate FiO2 10/03/17 20:39 93 Room Air 10/03/17 20:30 113 10/03/17 20:24 37.9 118 20 165/113 95 Room Air Physical Exam General: Non-ill appearing older male, hard of hearing, but answers questions appropriately, in no acute distress. Blackwood catheter in place HEENT: Normal cephalic atraumatic. Pupils are equal round and reactive to light. Extraocular movements are intact. Oropharynx is pink with moist mucous membranes. No swelling of the mouth lips or tongue. Neck: Supple with a midline trachea. No meningeal signs or stiffness, no JVD or bruits. No Stridor. Chest: Clear to auscultation bilaterally. No wheezes or rhonchi. No increased work of breathing. Heart: regular rate and rhythm. Abdomen: Soft nontender, nondistended without rebound guarding or rigidity. : Blackwood catheter in place with lightly blood-tinged urine. There is a moderate amount of blood that is clotted seen at the meatus and in the underwear Extremities: No cyanosis clubbing or edema. No calf tenderness or assymetry Spine/Back. Non tender to palpation. No CVA tenderness Skin: Good turgor without rashes. Neurologic exam: Cranial nerves two through 12 are intact. Motor and sensation are intact and symmetrical throughout. Medical Decision & Procedures ER Provider Diagnostic Interpretation: Radiology results as stated below per my review and radiologist interpretation: CHEST ONE VIEW PORTABLE CLINICAL HISTORY: Sepsis COMPARISON STUDY: 04/12/2016 FINDINGS: There are postsurgical changes of midline sternotomy. The heart is mildly enlarged. There is mild elevation of the interstitium most likely secondary to mild pulmonary vascular congestion.[ There are no pleural effusions. There is no focal pulmonary consolidation. Arthritic changes are present within the left shoulder. There are multiple loose bodies present. Synovial osteochondromatosis must be considered. IMPRESSION: Cardiomegaly and mild perivascular congestion. No evidence of focal pulmonary consolidation Electronically signed by: Saran Jaramillo M.D. 10/03/2017 8:56 PM Dictated Date/Time: 10/03/2017 8:55 PM Laboratory Results 10/03/17 20:25 Red Blood Count 3.74, Mean Corpuscular Volume 94.9, Mean Corpuscular Hemoglobin 30.7, Mean Corpuscular Hemoglobin Concent 32.4, Mean Platelet Volume 9.8, Neutrophils (%) (Auto) 87.3, Lymphocytes (%) (Auto) 8.7, Monocytes (%) (Auto) 0.9, Eosinophils (%) (Auto) 1.8, Basophils (%) (Auto) 0.3, Neutrophils # (Auto) 5.95, Lymphocytes # (Auto) 0.59, Monocytes # (Auto) 0.06, Eosinophils # (Auto) 0.12, Basophils # (Auto) 0.02 10/03/17 20:25 Test 10/03/17 00:00 10/03/17 20:25 10/03/17 21:07 Urine Color RED Urine Appearance TURBID (CLEAR) Urine pH 5.0 (4.5-7.5) Urine Specific [place] 1.024 (1.000-1.030) Urine Protein 3+ (NEG) Urine Glucose (UA) NEG (NEG) Urine Ketones NEG (NEG) Urine Occult Blood 3+ (NEG) Urine Nitrite POS (NEG) Urine Bilirubin NEG (NEG) Urine Urobilinogen NEG (NEG) Urine Leukocyte Esterase LARGE (NEG) Urine WBC (Auto) >30 /hpf (0-5) Urine RBC (Auto) >30 /hpf (0-4) Urine Hyaline Casts (Auto) 5-10 /lpf (0-5) Urine Epithelial Cells (Auto) >30 /lpf (0-5) Urine Bacteria (Auto) 4+ (NEG) Urine Pathogenic Casts 0-3 RBC CASTS /lpf (0) Urine Yeast (Auto) PRESENT (NONE PRSENT) White Blood Count 6.81 K/uL (4.8-10.8) Red Blood Count 3.74 M/uL (4.7-6.1) Hemoglobin 11.5 g/dL (14.0-18.0) Hematocrit 35.5 % (42-52) Mean Corpuscular Volume 94.9 fL (80-100) Mean Corpuscular Hemoglobin 30.7 pg (25-34) Mean Corpuscular Hemoglobin Concent 32.4 g/dl (32-36) Platelet Count 163 K/uL (130-400) Mean Platelet Volume 9.8 fL (7.4-10.4) Neutrophils (%) (Auto) 87.3 % Lymphocytes (%) (Auto) 8.7 % Monocytes (%) (Auto) 0.9 % Eosinophils (%) (Auto) 1.8 % Basophils (%) (Auto) 0.3 % Neutrophils # (Auto) 5.95 K/uL (1.4-6.5) Lymphocytes # (Auto) 0.59 K/uL (1.2-3.4) Monocytes # (Auto) 0.06 K/uL (0.11-0.59) Eosinophils # (Auto) 0.12 K/uL (0-0.5) Basophils # (Auto) 0.02 K/uL (0-0.2) RDW Standard Deviation 51.3 fL (36.4-46.3) RDW Coefficient of Variation 14.8 % (11.5-14.5) Immature Granulocyte % (Auto) 1.0 % Immature Granulocyte # (Auto) 0.07 K/uL (0.00-0.02) Prothrombin Time 13.8 SECONDS (9.0-12.0) Prothromb Time International Ratio 1.3 (0.9-1.1) Activated Partial Thromboplast Time 30.7 SECONDS (21.0-31.0) Partial Thromboplastin Ratio 1.2 Anion Gap 5.0 mmol/L (3-11) Est Creatinine Clear Calc Drug Dose 53.1 ml/min Estimated GFR () 64.4 Estimated GFR (Non- 55.5 BUN/Creatinine Ratio 25.7 (10-20) Calcium Level 8.6 mg/dl (8.5-10.1) Total Bilirubin 0.3 mg/dl (0.2-1) Aspartate Amino Transf (AST/SGOT) 17 U/L (15-37) Alanine Aminotransferase (ALT/SGPT) 19 U/L (12-78) Alkaline Phosphatase 54 U/L (45-117) Total Protein 7.0 gm/dl (6.4-8.2) Albumin 3.6 gm/dl (3.4-5.0) Globulin 3.4 gm/dl (2.5-4.0) Albumin/Globulin Ratio 1.1 (0.9-2) Bedside Lactic Acid Venous 1.69 mmol/L (0.90-1.70) Laboratory studies as stated above per my review. ECG Per My Interpretation Indication: syncope Rate (beats per minute): 113 Rhythm: sinus tachycardia Findings: LBBB, other (no definite ischemic changes) Comparison ECG Date: April 23, 2017 Change: no significant change ED Course 2025: Past medical records reviewed. The patient was evaluated in room B9, and a complete history and physical examination were performed. 2144: I discussed the patient's case with Dr. Cassidy, [facility] Hospitalist. He will further evaluate the patient. Medical Decision Differential diagnosis: Etiologies such as arrhythmia, syncope, acute coronary syndrome, anxiety, infection, electrolyte or metabolic abnormalities, as well as others were entertained. This patient comes in as described above appears placed in room B9. He had episode where he achy and nervous and had a near syncopal episode. By report he may have gotten bradycardic. He says that he feels good and no chest pain or shortness of breath. he does have indwelling Blackwood catheter. He has no definite fever here. He is mildly tachycardic but has baseline left bundle branch block.. his EKG does not show any acute changes or ischemic changes. Troponin is not elevated. His urinalysis is difficult to interpret as he has a chronic Blackwood catheter. He has no significant electrolyte or metabolic abnormalities. Chest x-ray shows cardiomegaly but no overt CHF. His white count is not elevated. He was also noted to have a moderate amount of clotted blood along the meatus. Given the near syncopal episode and his other issues, I do think he warrants observation/admission. Although he does not have a fever he has a low-grade temperatures possibly starting to get infected also his chest x-ray has some borderline mild CHF possibly. I have consulted Dr. Mcelroy to see the patient in the ER for these measures. Medication Reconcilliation Current Medication List: was personally reviewed by me Blood Pressure Screening Patient's blood pressure: Elevated blood pressure Blood pressure disposition: Elevated BP felt to be situational Consults Time Called: 2139 Consulting Physician: Dr. Cassidy, [facility] Hospitalist Returned Call: [phone] He will further evaluate the patient. Additional Consults: Time Called: 2224 Consulted Physician: Dr. Jim Engle Returned Call: [phone] Additional Comments: He said that the best treatment at this point is to ensure that the catheter is not being pulled on and the bleeding should stop. Impression Primary Impression: Near syncope Additional Impressions: Hematuria Current use of care home anticoagulation Scribe Attestation The scribe's documentation has been prepared under my direction and personally reviewed by me in its entirety. I confirm that the note above accurately reflects all work, treatment, procedures, and medical decision making performed by me. Departure Information Dispostion Being Evaluated By Hospitalist (Dr. Cassidy, [facility] Hospitalist) Referrals No Doctor, Assigned (PCP) Patient Instructions My [facility] Problem Qualifiers
--- NOTE | 2017-10-03 20:58 | DIAGNOSTIC IMAGING REPORT ---
CHEST ONE VIEW PORTABLE CLINICAL HISTORY: Sepsis COMPARISON STUDY: 04/12/2016 FINDINGS: There are postsurgical changes of midline sternotomy. The heart is mildly enlarged. There is mild elevation of the interstitium most likely secondary to mild pulmonary vascular congestion.[ There are no pleural effusions. There is no focal pulmonary consolidation. Arthritic changes are present within the left shoulder. There are multiple loose bodies present. Synovial osteochondromatosis must be considered. IMPRESSION: Cardiomegaly and mild perivascular congestion. No evidence of focal pulmonary consolidation Electronically signed by: Saran Jaramillo M.D. 10/03/2017 8:56 PM Dictated Date/Time: 10/03/2017 8:55 PM
[2017-10-03 21:03] LABS: BASO % 0.3 %; BASO ABS # 0.02 K/uL (0-0.2); EOS % 1.8 %; EOS ABS # 0.12 K/uL (0-0.5); HEMATOCRIT 35.5 % (42-52); HEMOGLOBIN 11.5 g/dL (14.0-18.0); IG# 0.07 K/uL (0.00-0.02); LYMPH % 8.7 %; LYMPH ABS # 0.59 K/uL (1.2-3.4); MEAN CELL VOLUME 94.9 fL (80-100); MEAN CORPUSCULAR HEMOGLOBIN 30.7 pg (25-34); MEAN CORPUSCULAR HGB CONC 32.4 g/dl (32-36); MEAN PLATELET VOLUME 9.8 fL (7.4-10.4); MONO % 0.9 %; MONO ABS # 0.06 K/uL (0.11-0.59); NEUT % 87.3 %; NEUT ABS # 5.95 K/uL (1.4-6.5); PLATELET COUNT 163 K/uL (130-400); RED CELL DISTRIBUTION WIDTH CV 14.8 % (11.5-14.5); RED CELL DISTRIBUTION WIDTH SD 51.3 fL (36.4-46.3); WHITE BLOOD COUNT 6.81 K/uL (4.8-10.8)
[2017-10-03 21:16] LABS: ALBUMIN 3.6 gm/dl (3.4-5.0); CALCIUM 8.6 mg/dl (8.5-10.1); CREATININE 1.16 mg/dl (0.60-1.40)
[2017-10-03 21:19] LABS: INR 1.3 (0.9-1.1); PTT PATIENT 30.7 SECONDS (21.0-31.0)
[2017-10-03] MEDS ORDERED: PHEN-775 PO (22:24)
[2017-10-03] MEDS ORDERED: FLUT0.15 NAE (22:24)
[2017-10-03] MEDS ORDERED: PIPERACILL/TAZOBAC CONSULT ACTIVE PRN (22:45)
[2017-10-03] MEDS ORDERED: ACETAMINOPHEN 325 MG TAB PO PRN (22:45)
[2017-10-03] MEDS ORDERED: ONDANSETRON INJ 2 MG/ML 2 ML VIAL IV PRN (22:45)
[2017-10-03] MEDS ORDERED: ALUMINUM/MAGNESIUM/SIMETH (MAALOX MAX) 30 ML UDC PO PRN (22:45)
[2017-10-03] MEDS ORDERED: MAGNESIUM HYDROXIDE SUSP 30 ML UDC PO PRN (22:45)
[2017-10-03] MEDS ORDERED: POLYETHYLENE (MIRALAX) 17 GM PACK PO PRN (22:45)
[2017-10-03] MEDS ORDERED: VANCOMYCIN CONSULT ACTIVE PRN (22:45)
[2017-10-03] MEDS ORDERED: ACET-1311 PO ×2 (22:46)
[2017-10-03] MEDS ORDERED: RANI150T3 PO (22:46)
[2017-10-03] MEDS ORDERED: CALC-585 PO (22:55)
[2017-10-03] MEDS ORDERED: LPR25 PO (22:55)
[2017-10-03] MEDS ORDERED: DONE1TAB26 PO (22:55)
[2017-10-03] MEDS ORDERED: FERR325T5 PO (22:55)
[2017-10-03] MEDS ORDERED: ASPI325T39 PO (22:55)
[2017-10-03] MEDS ORDERED: BABY SHAMPOO OPB (22:59)
--- NOTE | 2017-10-03 23:14 | History and Physical ---
History & Physical Date & Time of Service: Oct 03, 2017 at 23:13 Chief Complaint: Near Syncope Primary Care Physician: Abdoul Fuchs M.D. History of Present Illness Source: patient, hospital records 87 yo M with HTN, HLD , prostate cancer s/p radiation s/p urterotomy, chronic indwelling catheter, patient of Dr. House. presents progressive SOB, sweating, lightheadedness that started this evening. He denies LOC or Fall. He denies chest pain, palpitation. He reports subjective fever, chills and intermittent non-productive cough.This afternoon, patient also noticed blood in urine, no suprapubic pain. He denies n/w/t, no vertigo. He denies orthopnea, paroxysmal nocturnal dyspnea. 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 (18) Osteoarthros Nos-Unspec (19) Rib fractures (20) Tachycardia (21) Urethral bleeding (22) Urinary retention (23) Urinary retention Surgical Problems: (1) Hx of appendectomy PastMedHx: -Prostate Cancer -Atrial FLutter -HLD -GERD - HTN -Kidney Stone -Syncope SurgHx: Aortic Valve repalcemnt Appendectomy Hernia repair Ureterotomy Family History FH: heart disease Social History Smoking Status: Former Smoker Smokeless Tobacco Use: No Alcohol Use: none Drug Use: none Marital Status: Housing status: lives with family Occupational Status: retired Immunizations History of Influenza Vaccine: Yes History of Tetanus Vaccine?: Yes History of Pneumococcal: Yes History of Hepatitis B Vaccine: No Allergies Coded Allergies: Lisinopril (Verified Adverse Reaction, Mild, DIARRHEA, 04/23/17) Home Medications Scheduled Acetaminophen (Tylenol), 650 MG PO TID Aspirin (Aspirin Ec), 325 MG PO DAILY Atorvastatin (Lipitor), 10 MG PO QPM Calcium Carbonate-Cholecalcife (Calcium 600 with Vitamin 600-400 mg-Unit), 1 TAB PO DAILY Cholecalciferol (Vitamin D3), 1,000 INTER.UNIT PO QAM Donepezil Hydrochloride (Donepezil Hcl), 10 MG PO QPM Ferrous Sulfate (Ferrous Sulfate), 325 MG PO BIDM Fluticasone Propionate (Nasal) (Flonase Allergy Relief), 2 SPRAYS JUNI DAILY Losartan Potassium (Cozaar), 100 MG PO QAM Metoprolol Tartrate (Lopressor), 12.5 MG PO BID Ranitidine Hcl (Zantac), 150 MG PO BID Rivaroxaban (Xarelto), 20 MG PO QPM [Baby Shampoo], 1 APPLN OPB QPM Scheduled PRN Acetaminophen (Tylenol), 650 MG PO Q6H PRN for Pain or Fever Phenazopyridine Hcl (Pyridium), 200 MG PO Q8 PRN for Urinary Pain Review of Systems Constitutional: + fever, + chills, + sweats, + fatigue Respiratory: + cough, + sputum, + shortness of breath Cardiovascular: No chest pain, No edema, No palpitations Abdomen: No pain, No nausea, No vomiting Genitourinary - Male: + hematuria, No dysuria, No urinary frequency Hematologic / Lymphatic: + problem reported (on Xarelto) Integumentary: No rash, No itch Physical Exam Vital Signs Date Time Temp Pulse Resp B/P (MAP) Pulse Ox O2 Delivery O2 Flow Rate FiO2 10/03/17 23:03 116 25 163/90 90 Room Air 10/03/17 22:34 112 18 167/89 94 Room Air 10/03/17 20:39 93 Room Air 10/03/17 20:30 113 10/03/17 20:24 37.9 118 20 165/113 95 Room Air General Appearance: WD/WN, + mild distress Head: normocephalic, atraumatic ENT: pharynx normal Neck: supple, no adenopathy, trachea midline Respiratory/Chest: chest non-tender, normal breath sounds Cardiovascular: regular rate, rhythm, no edema, normal peripheral pulses Abdomen/GI: normal bowel sounds, non tender, soft Genitourinary - Male: + pertinent finding (urethral bleeding) Neurologic/Psych: heavy forger II-XII nml as tested, no motor/sensory deficits, alert, normal mood/affect Skin: normal color, warm/dry Diagnostics Laboratory Results Results Past 24 Hours Test 10/03/17 00:00 10/03/17 20:25 10/03/17 21:07 Range/Units Urine Color RED Urine Appearance TURBID CLEAR Urine pH 5.0 4.5-7.5 Urine Specific [place] 1.024 1.000-1.030 Urine Protein 3+ NEG Urine Glucose (UA) NEG NEG Urine Ketones NEG NEG Urine Occult Blood 3+ NEG Urine Nitrite POS NEG Urine Bilirubin NEG NEG Urine Urobilinogen NEG NEG Urine Leukocyte Esterase LARGE NEG Urine WBC (Auto) >30 0-5 /hpf Urine RBC (Auto) >30 0-4 /hpf Urine Hyaline Casts (Auto) 5-10 0-5 /lpf Urine Epithelial Cells (Auto) >30 0-5 /lpf Urine Bacteria (Auto) 4+ NEG Urine Pathogenic Casts 0-3 RBC CASTS 0 /lpf Urine Yeast (Auto) PRESENT NONE PRSENT White Blood Count 6.81 4.8-10.8 K/uL Red Blood Count 3.74 4.7-6.1 M/uL Hemoglobin 11.5 14.0-18.0 g/dL Hematocrit 35.5 42-52 % Mean Corpuscular Volume 94.9 80-100 fL Mean Corpuscular Hemoglobin 30.7 25-34 pg Mean Corpuscular Hemoglobin Concent 32.4 32-36 g/dl Platelet Count 163 130-400 K/uL Mean Platelet Volume 9.8 7.4-10.4 fL Neutrophils (%) (Auto) 87.3 % Lymphocytes (%) (Auto) 8.7 % Monocytes (%) (Auto) 0.9 % Eosinophils (%) (Auto) 1.8 % Basophils (%) (Auto) 0.3 % Neutrophils # (Auto) 5.95 1.4-6.5 K/uL Lymphocytes # (Auto) 0.59 1.2-3.4 K/uL Monocytes # (Auto) 0.06 0.11-0.59 K/uL Eosinophils # (Auto) 0.12 0-0.5 K/uL Basophils # (Auto) 0.02 0-0.2 K/uL RDW Standard Deviation 51.3 36.4-46.3 fL RDW Coefficient of Variation 14.8 11.5-14.5 % Immature Granulocyte % (Auto) 1.0 % Immature Granulocyte # (Auto) 0.07 0.00-0.02 K/uL Prothrombin Time 13.8 9.0-12.0 SECONDS Prothromb Time International Ratio 1.3 0.9-1.1 Activated Partial Thromboplast Time 30.7 21.0-31.0 SECONDS Partial Thromboplastin Ratio 1.2 Sodium Level 142 136-145 mmol/L Potassium Level 4.0 3.5-5.1 mmol/L Chloride Level 108 98-107 mmol/L Carbon Dioxide Level 30 21-32 mmol/L Anion Gap 5.0 3-11 mmol/L Blood Urea Nitrogen 30 7-18 mg/dl Creatinine 1.16 0.60-1.40 mg/dl Est Creatinine Clear Calc Drug Dose 53.1 ml/min Estimated GFR () 64.4 Estimated GFR (Non- 55.5 BUN/Creatinine Ratio 25.7 10-20 Random Glucose 106 70-99 mg/dl Calcium Level 8.6 8.5-10.1 mg/dl Total Bilirubin 0.3 0.2-1 mg/dl Aspartate Amino Transf (AST/SGOT) 17 15-37 U/L Alanine Aminotransferase (ALT/SGPT) 19 12-78 U/L Alkaline Phosphatase 54 45-117 U/L Total Protein 7.0 6.4-8.2 gm/dl Albumin 3.6 3.4-5.0 gm/dl Globulin 3.4 2.5-4.0 gm/dl Albumin/Globulin Ratio 1.1 0.9-2 Bedside Lactic Acid Venous 1.69 0.90-1.70 mmol/L Microbiology Results 10/03/17 Blood Culture, Received Pending 10/03/17 Blood Culture, Received Pending 10/03/17 Urine Culture, Received Pending Diagnostic Radiology CHEST ONE VIEW PORTABLE CLINICAL HISTORY: Sepsis COMPARISON STUDY: 04/12/2016 FINDINGS: There are postsurgical changes of midline sternotomy. The heart is mildly enlarged. There is mild elevation of the interstitium most likely secondary to mild pulmonary vascular congestion.[ There are no pleural effusions. There is no focal pulmonary consolidation. Arthritic changes are present within the left shoulder. There are multiple loose bodies present. Synovial osteochondromatosis must be considered. IMPRESSION: Cardiomegaly and mild perivascular congestion. No evidence of focal pulmonary consolidation Impression Assessment and Plan 87 yo M with h/o atrial flutter on Xarelto, Aortic Stenosis s/p Aortic valve replacement with bioprosthesis, prostate cancer s/p radiation s/p ureterotomy presenting with Fever, Presyncope, Diaphoresis , periurethral bleed, positive heme occult stool with subsequent development of increasing sob , tachycardia , tremors, AMS Fever, Diaphoresis, Presyncope -suspected infection but no leukocytosis and source unclear -possible UTI but may be contaminated -repeat UA -on broad spectrum abx ad below Respiratory distress, Tachycardia, AMS - developed worsening SOB in ED - CXR suggestive of pulm edema -Given 40 mg Lasix, Diltiazem IV, Lopressor IV, HR improved -CT PE ordered -CT Head Periurethral Bleed - H/H stable, Check q 4H - D/C Xarelto - Consult Urology Suspected GI Bleed - h/o black stools - positive heme occult stool - Consult Gastroenterology - H/H Stable -Start Protonix drip -D/C ASA, Xarelto -Blood Type and cross Aortic valve s/p replacement with bioprosthesis -empirically antibiotic coverage for presumed endocarditis until proven otherwise -F/u blood cultures -Vanc, Zosyn/Levaquin -Echo in the morning H/o Prostate Cancer - s/p radiation DVT PPX - SCD Code status: Full No Mechanical Vent Attending addendum: I have physically seen this patient, have supervised the medical residents activities, and agree with the H&P unless as otherwise noted. Assessment and Plan: Presyncope/likely multifactorial-- tachycardia, GI bleeding, periurethral bleeding around chronic indwelling [place] catheter/respiratory distress-- N.p.o. status. A. fib/flutter history/tachycardia/CHF/AVR bioprosthetic valve-- Given Cardizem 10 mg IV in the ED 2 and then Lopressor 5 mg IV. Given Lasix 40 mg IV 1 in the ED. Lopressor 5 mg IV every 4 hours hold for heart rate less than 60 or systolic blood pressure less than 120. Hold Xarelto. Empiric vancomycin, Zosyn and Levaquin. Transthoracic echo in the morning, may require FRANCHESCA. Consult his civil preparedness officer Dr. Riggins. Altered mental status-- CT of head ordered when cardiorespiratory stable. Upper GI bleed-- Holding Xarelto and aspirin. H&H every 4 hours 24 hours. Protonix bolus and drip. No reversal of anticoagulation unless more significant bleeding. Periurethral bleeding/indwelling [place] catheter-- Holding Xarelto and aspirin. Consult urology Advanced Directives Existing Advance Directive: Yes Resuscitation Status VTE Prophylaxis Will order VTE Prophylaxis: Yes Reason for no VTE drug order: Contraindicated Note Total Time: Critical Care 30 - 74 minutes Resident Tracking Resident Involvement: Resident Care Provided Care Provided: Adult Hospital Medicine
[2017-10-03] MEDS ORDERED: PANTOprazole INJ 80 MG in DEXTROSE 5% 100ML IV STA (23:15)
[2017-10-03] MEDS ORDERED: DILTIAZEM HCL 5 MG/ML 5 ML VIAL IV STA (23:55)
[2017-10-03] MEDS ORDERED: DILTIAZEM HCL 5 MG/ML 5 ML VIAL ONE (23:55)
[2017-10-04] MEDS ORDERED: PIPERACILL/TAZOBAC IV 3.375 GM in DEXTROSE 5% 100ML 100 ML IV SCH ×2
[2017-10-04] MEDS ORDERED: FUROSEMIDE 40 MG/4 ML VIAL IV STA
[2017-10-04] MEDS ORDERED: FUROSEMIDE 40 MG/4 ML VIAL ONE (00:01)
[2017-10-04] MEDS ORDERED: METHYLPREDNISOLONE IV 60 MG in SYRINGE 0 ML IV STA (00:02)
[2017-10-04] MEDS ORDERED: MAGNESIUM SULFATE 1GM / D5W 1 GM in PREMIXED IN D5W 100 ML IV STA (00:13)
[2017-10-04] MEDS ORDERED: MAGNESIUM SULFATE 1GM / D5W 1 GM BAG ONE (00:15)
[2017-10-04] MEDS ORDERED: OPTIRAY 320 IV PRN (00:15)
[2017-10-04] MEDS ORDERED: DILTIAZEM HCL 5 MG/ML 5 ML VIAL IV STA (00:16)
[2017-10-04 00:17] LABS: HEMATOCRIT 36.5 % (42-52); HEMOGLOBIN 11.8 g/dL (14.0-18.0)
[2017-10-04] MEDS ORDERED: METOPROLOL TARTRATE 1 MG/ML VIAL IV STA (00:20)
[2017-10-04] MEDS ORDERED: METOPROLOL TARTRATE 1 MG/ML VIAL ONE (00:20)
[2017-10-04] MEDS ORDERED: NURSING VERBAL MED ORDER ONE (00:26)
[2017-10-04] MEDS ORDERED: LORAZEPAM 2 MG/ML 1 ML VIAL ONE (00:29)
[2017-10-04] MEDS ORDERED: VANCOMYCIN IV 2,500 MG in SODIUM CHLORIDE 0.9% 500ML 500 ML IV STA (00:37)
[2017-10-04 00:55] VITALS: BP 141/81; PULSE 113; TEMP 36.5; O2SAT 93; Ht 177.8 cm; Wt 99.5 kg
[2017-10-04] MEDS: PANTOprazole INJ 40 MG in DEXTROSE 5% 100ML IV SCH ×5 (01:17→19:17)
[2017-10-04] MEDS ORDERED: PIPERACILL/TAZOBAC IV 3.375 GM in NSS 100 ML IV ONE (01:30)
[2017-10-04] MEDS ORDERED: PNEUMOCOCCAL POLYSACCHARIDES 25 MCG/0.5 ML VIAL/SYR IM. ONE (04:15)
[2017-10-04] MEDS ORDERED: PNEUMOCOCCAL ADMINISTRATION CHARGE ONE (04:15)
[2017-10-04 04:30] VITALS: BP 126/84; PULSE 107; TEMP 37.2; O2SAT 95
[2017-10-04 04:42] LABS: HEMATOCRIT 32.1 % (42-52); HEMOGLOBIN 10.7 g/dL (14.0-18.0); MEAN CELL VOLUME 93.6 fL (80-100); MEAN CORPUSCULAR HEMOGLOBIN 31.2 pg (25-34); MEAN CORPUSCULAR HGB CONC 33.3 g/dl (32-36); MEAN PLATELET VOLUME 9.7 fL (7.4-10.4); PLATELET COUNT 154 K/uL (130-400); RED CELL DISTRIBUTION WIDTH CV 15.1 % (11.5-14.5); RED CELL DISTRIBUTION WIDTH SD 51.7 fL (36.4-46.3); WHITE BLOOD COUNT 13.74 K/uL (4.8-10.8)
[2017-10-04] MEDS: LEVOFLOXACIN / D5W 750 MG in PREMIXED IN D5W 150 ML IV SCH (04:54)
[2017-10-04 05:00] LABS: CALCIUM 8.2 mg/dl (8.5-10.1); CREATININE 1.08 mg/dl (0.60-1.40); POTASSIUM 3.7 mmol/L (3.5-5.1)
[2017-10-04 05:17] LABS: BASO % 0.1 %; BASO ABS # 0.01 K/uL (0-0.2); IG# 0.02 K/uL (0.00-0.02); LYMPH % 1.6 %; LYMPH ABS # 0.22 K/uL (1.2-3.4); MONO % 3.1 %; MONO ABS # 0.43 K/uL (0.11-0.59); NEUT % 95.1 %; NEUT ABS # 13.06 K/uL (1.4-6.5)
--- NOTE | 2017-10-04 05:41 | DIAGNOSTIC IMAGING REPORT ---
CHEST ONE VIEW PORTABLE CLINICAL HISTORY: 87 years-old Male presenting with EVAL FOR CHEST PAIN. TECHNIQUE: Portable upright AP view of the chest was obtained. COMPARISON: 10/03/2017. FINDINGS: Median sternotomy wires intact. Atherosclerosis of the aortic arch. Cardiac silhouette mildly enlarged, unchanged. The azygos vein is dilated. Pulmonary vasculature remains mildly prominent. Interval increase in bibasilar linear and reticular lung markings. No other focal infiltrate. No large effusion or pneumothorax. Multiple ossific bodies project over the left shoulder, which demonstrates advanced degenerative changes of the glenohumeral joint, likely numerous loose bodies. Upper abdomen normal. IMPRESSION: 1. Cardiomegaly with volume overload and progressive congestive change. No [place] pulmonary edema. The report will be called/faxed according to standard departmental protocol. Electronically signed by: Patrice Metz M.D. 10/04/2017 5:40 AM Dictated Date/Time: 10/04/2017 5:37 AM
--- NOTE | 2017-10-04 07:04 | DIAGNOSTIC IMAGING REPORT ---
HEAD WITHOUT CONTRAST (CT) CLINICAL HISTORY: 87 years-old Male presenting with syncope. TECHNIQUE: Multidetector CT imaging of the head was performed without the use of intravenous contrast. IV contrast: None. A dose lowering technique was used consistent with the principles of ALARA (as low as reasonably achievable). COMPARISON: 04/23/2017. CT DOSE (mGy.cm): The estimated cumulative dose is 1550.[address] scans. FINDINGS: Company Marker topogram: Median sternotomy wires and prosthetic aortic valve noted. Proportional ventricular and sulcal prominence, likely age-related parenchymal volume loss. Asymmetry of dilatation of the left lateral ventricle with mild rightward bowing of the septum pellucidum is unchanged from prior and likely within the range of normal. Brain parenchyma normal in appearance with preserved sharma-white differentiation. No mass effect or midline shift. No hemorrhage or acute territorial infarct. No extra-axial fluid collection. Paranasal sinuses and mastoid air cells clear. Calvarium intact. Expansile water density lesion left mandible near the angle of the mandible. IMPRESSION: 1. No acute intracranial abnormality. 2. 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 Electronically signed by: Patrice Metz M.D. 10/04/2017 7:03 AM Dictated Date/Time: 10/04/2017 6:56 AM
--- NOTE | 2017-10-04 07:14 | DIAGNOSTIC IMAGING REPORT ---
(CHEST FOR PE) ANGIO WITH CLINICAL HISTORY: 87 years-old Male presenting with ^sob, syncope. TECHNIQUE: Multidetector CT angiography of the chest was performed after administration of intravenous contrast. 3-D volumetric and/or maximum intensity projection (MIP) images were subsequently reconstructed for review. IV contrast: 92 mL of Optiray 320. A dose lowering technique was used consistent with the principles of ALARA (as low as reasonably achievable). COMPARISON: 04/23/2017. CT DOSE (mGy.cm): The estimated cumulative dose is 1550.48 mGy.cm. FINDINGS: Suppression Crew Leader topogram: Median sternotomy wires and prosthetic aortic valve noted. Pulmonary vasculature: The study is suboptimal for the assessment of the pulmonary vascular tree secondary to timing of the contrast bolus and respiratory motion artifact. Allowing for limited image quality, no central filling defect to suggest pulmonary embolus. Main pulmonary artery is not enlarged. No flattening of the interventricular septum. No intracardiac filling defect. Reflux of contrast into the intrahepatic IVC. Remaining chest: On soft tissue windows, right gynecomastia. Thyroid contains a small calcified nodule in the left lobe. Benign-appearing mediastinal nodes. Prominent bilateral hilar lymph nodes. Atherosclerosis of the aorta. Top normal heart size. Coronary artery and mitral annular calcification. Postsurgical changes of aortic valve replacement. No pericardial or pleural effusion. Upper pole right renal calculus. On lung windows, respiratory motion artifact degrades evaluation of lung parenchyma. Minimal dependent changes likely atelectasis. No other focal infiltrate or nodule. Central airways patent. On bone windows, severe degenerative changes of the left glenohumeral joint with multiple large loose bodies. Incomplete osseous fusion of the sternotomy. Degenerative changes of the spine. Old left rib fractures, some of which are nonunited. IMPRESSION: 1. Allowing for suboptimal image quality, no evidence of pulmonary embolus. No acute intrathoracic pathology. 2. Postsurgical changes of aortic valve replacement. Electronically signed by: Patrice Metz M.D. 10/04/2017 7:13 AM Dictated Date/Time: 10/04/2017 7:04 AM
[2017-10-04] MEDS: PIPERACILL/TAZOBAC IV 3.375 GM in NSS 100ML IV SCH ×3 (07:24→21:42)
[2017-10-04] MEDS: METOPROLOL TARTRATE 1 MG/ML VIAL IV. SCH ×4 (07:34→19:39)
--- NOTE | 2017-10-04 08:10 | EMERGENCY ROOM VISIT NOTE ---
ED Visit Note I was called to this patient's bedside by nursing staff at approximately 11: 20 PM. The patient is found to be tachycardic. EKG reveals an atrial fibrillation with RVR, left bundle branch block. Patient is complaining of difficulty breathing. Lung sounds are auscultated with only faint crackles. Patient does have a dry cough. He remains on oxygen. Vital signs remained stable other than the tachycardia. Patient is noted to be hypertensive. Patient was ordered Cardizem [address] Yancey, the patient's attending did arrive at the bedside. The case was deferred to his management.
[2017-10-04 08:15] VITALS: BP 159/81; PULSE 82; TEMP 36.6; O2SAT 97
[2017-10-04 08:15] LABS: HEMATOCRIT 33.2 % (42-52)
--- NOTE | 2017-10-04 08:16 | Urology Consultation ---
History General Date of Service: Oct 04, 2017. Chief Complaint: Hematuria, retention Primary Care Physician: Abdoul Fuchs M.D. Pt seen a urologist before?: Yes If yes, why?: Dr. House for stricture, chronic hargrove History of Present Illness Patient is an 87-year-old long-term resident, currently on one-to-one nursing monitoring due to confusion, admitted for difficulties with tachycardia , shortness of breath and near syncope. Patient has a long-standing urologic history for which he has seen Dr. 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 His Hargrove catheter was changed by in the office every 6 weeks and his next appointment for his exchange is on 10/16/17. Patient is noted in the emergency room to have some bleeding around his catheter with otherwise apparent normal function and good urine outputs of concentrated urine. Per the nursing staff in the room this continues currently. Patient is unable to contribute significant history at this time. Urologic consultation is sought out to assist with the patient's care. He is currently noted to be on broad-spectrum antibiotics. HPI - Urinary Retention Sx Patient has: + hargrove, + hematuria Prior surgery/interventions: TURP Laboratory Last 24 Hours Test 10/03/17 20:25 10/03/17 21:07 10/04/17 00:11 10/04/17 01:06 White Blood Count 6.81 K/uL Red Blood Count 3.74 M/uL Hemoglobin 11.5 g/dL 11.8 g/dL Hematocrit 35.5 % 36.5 % Mean Corpuscular Volume 94.9 fL Mean Corpuscular Hemoglobin 30.7 pg Mean Corpuscular Hemoglobin Concent 32.4 g/dl Platelet Count 163 K/uL Mean Platelet Volume 9.8 fL Neutrophils (%) (Auto) 87.3 % Lymphocytes (%) (Auto) 8.7 % Monocytes (%) (Auto) 0.9 % Eosinophils (%) (Auto) 1.8 % Basophils (%) (Auto) 0.3 % Neutrophils # (Auto) 5.95 K/uL Lymphocytes # (Auto) 0.59 K/uL Monocytes # (Auto) 0.06 K/uL Eosinophils # (Auto) 0.12 K/uL Basophils # (Auto) 0.02 K/uL RDW Standard Deviation 51.3 fL RDW Coefficient of Variation 14.8 % Immature Granulocyte % (Auto) 1.0 % Immature Granulocyte # (Auto) 0.07 K/uL Prothrombin Time 13.8 SECONDS Prothromb Time International Ratio 1.3 Activated Partial Thromboplast Time 30.7 SECONDS Partial Thromboplastin Ratio 1.2 Sodium Level 142 mmol/L Potassium Level 4.0 mmol/L Chloride Level 108 mmol/L Carbon Dioxide Level 30 mmol/L Anion Gap 5.0 mmol/L Blood Urea Nitrogen 30 mg/dl Creatinine 1.16 mg/dl Est Creatinine Clear Calc Drug Dose 53.1 ml/min Estimated GFR () 64.4 Estimated GFR (Non- 55.5 BUN/Creatinine Ratio 25.7 Random Glucose 106 mg/dl Calcium Level 8.6 mg/dl Total Bilirubin 0.3 mg/dl Aspartate Amino Transf (AST/SGOT) 17 U/L Alanine Aminotransferase (ALT/SGPT) 19 U/L Alkaline Phosphatase 54 U/L Total Protein 7.0 gm/dl Albumin 3.6 gm/dl Globulin 3.4 gm/dl Albumin/Globulin Ratio 1.1 Bedside Lactic Acid Venous 1.69 mmol/L Bedside Glucose 184 mg/dl Test 10/04/17 04:26 10/04/17 08:03 White Blood Count 13.74 K/uL Red Blood Count 3.43 M/uL Hemoglobin 10.7 g/dL 11.0 g/dL Hematocrit 32.1 % 33.2 % Mean Corpuscular Volume 93.6 fL Mean Corpuscular Hemoglobin 31.2 pg Mean Corpuscular Hemoglobin Concent 33.3 g/dl Platelet Count 154 K/uL Mean Platelet Volume 9.7 fL Neutrophils (%) (Auto) 95.1 % Lymphocytes (%) (Auto) 1.6 % Monocytes (%) (Auto) 3.1 % Eosinophils (%) (Auto) 0.0 % Basophils (%) (Auto) 0.1 % Neutrophils # (Auto) 13.06 K/uL Lymphocytes # (Auto) 0.22 K/uL Monocytes # (Auto) 0.43 K/uL Eosinophils # (Auto) 0.00 K/uL Basophils # (Auto) 0.01 K/uL RDW Standard Deviation 51.7 fL RDW Coefficient of Variation 15.1 % Immature Granulocyte % (Auto) 0.1 % Immature Granulocyte # (Auto) 0.02 K/uL Sodium Level 141 mmol/L Potassium Level 3.7 mmol/L Chloride Level 107 mmol/L Carbon Dioxide Level 27 mmol/L Anion Gap 7.0 mmol/L Blood Urea Nitrogen 29 mg/dl Creatinine 1.08 mg/dl Est Creatinine Clear Calc Drug Dose 55.4 ml/min Estimated GFR () 70.2 Estimated GFR (Non- 60.5 BUN/Creatinine Ratio 26.9 Random Glucose 163 mg/dl Calcium Level 8.2 mg/dl 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 of fci anticoagulation Status: Acute (2) Hematuria Status: Acute (3) Hypertension Status: Acute (4) Near syncope Status: Acute (5) Tachycardia Status: Acute (6) Urinary retention Status: Acute Past History A Fib, cancer - prostate, dementia, GERD, heart disease, hypertension, osteoarthritis, osteoporosis, urinary tract infection Past Surgical History: appendectomy, colonoscopy, other (brachyRx, TURP and cystolithopaxy, hernia repair, aortic valve replacement) Family History FH: heart disease Social History Hx Tobacco Use In Past Year?: No Smoking: no current use Alcohol: no current use Marital status: Housing status: lives with family Occupation status: retired Immunizations History of Influenza Vaccine: Yes History of Tetanus Vaccine?: Yes History of Pneumococcal: Yes History of Hepatitis B Vaccine: No History of MDRO No Allergies Coded Allergies: Lisinopril (Verified Adverse Reaction, Mild, DIARRHEA, 04/23/17) Medications Home Medications: Home Meds and Scripts Medications Dose Route/Sig Max Daily Dose Days Date Category Dose Instructions [Baby Shampoo] 1 Appln OPB QPM 10/03/17 Reported APPLY TO EYELIDS, DILUTE AND USE TO CLEANSE Ferrous Sulfate 325 Mg Tab 325 Mg PO BIDM 10/03/17 Reported Donepezil Hcl (Donepezil Hydrochloride) 10 Mg Tab 10 Mg PO QPM 10/03/17 Reported Lopressor (Metoprolol Tartrate) 25 Mg Tab 12.5 Mg PO BID 10/03/17 Reported Calcium 600 with Vitamin 600-400 mg-Unit (Calcium Carbonate-Cholecalcife) 1 Tab Tab 1 Tab PO DAILY 10/03/17 Reported Aspirin Ec (Aspirin) 325 Mg Tab 325 Mg PO DAILY 10/03/17 Reported Zantac (Ranitidine HCl) 150 Mg Tab 150 Mg PO BID 10/03/17 Reported Tylenol (Acetaminophen) 325 Mg Tab 650 Mg PO TID 10/03/17 Reported DO NOT EXCEED 3 GM APAP/24 HOURS Tylenol (Acetaminophen) 325 Mg Tab 650 Mg PO Q6H PRN 10/03/17 Reported DO NOT EXCEED 3 GM APAP/24 HOURS Pyridium (Phenazopyridine Hcl) 200 Mg Tab 200 Mg PO Q8 PRN 04/23/17 Reported Flonase Allergy Relief (Fluticasone Propionate (Nasal)) 50 Mcg/Act Spr 2 Sprays JUNI DAILY 04/23/17 Reported Xarelto (Rivaroxaban) 20 Mg Tab 20 Mg PO QPM 04/12/16 Reported Vitamin D3 (Cholecalciferol) 1,000 Unit Tab 1,000 Inter.unit PO QAM 04/12/16 Reported Cozaar (Losartan Potassium) 100 Mg Tab 100 Mg PO QAM 07/23/13 Reported Lipitor (Atorvastatin Calcium) 10 Mg Tab 10 Mg PO QPM 05/31/08 Reported Inpatient Medications: Current Inpatient Medications Medications (Trade) Dose Ordered Sig/Alva Route Start Time Stop Time Status Last Admin Dose Admin Ondansetron HCl (Zofran Inj) 4 mg Q6H PRN IV 10/03/17 22:45 11/02/17 22:44 Miscellaneous Information (Consult) 1 ea UD PRN N/A 10/03/17 22:45 11/02/17 22:44 Miscellaneous Information (Consult) 1 ea UD PRN N/A 10/03/17 22:45 11/02/17 22:44 Levofloxacin 750 mg/Prmx 150 ml @ 100 mls/hr Q24H IV 10/04/17 04:00 11/15/17 03:59 10/04/17 04:54 100 MLS/HR Pantoprazole Sodium 40 mg/ Dextrose 100 ml @ 20 mls/hr Q5H IV 10/03/17 23:30 11/02/17 23:29 10/04/17 07:20 20 MLS/HR Ioversol (Optiray 320) 100 ml UD PRN IV 10/04/17 00:15 10/08/17 00:14 Piperacillin Sod/ Tazobactam Sod 3.375 gm/Sodium Chloride 115 ml @ 28.75 mls/ hr Q8H IV 10/04/17 06:00 11/15/17 05:59 10/04/17 07:24 28.75 MLS/HR Metoprolol Tartrate (Lopressor Iv) 5 mg Q4 IV. 10/04/17 08:00 11/03/17 07:59 10/04/17 07:34 5 MG Review of Systems Review of Systems Constitutional: + see HPI (Limited due to mental status), + fever (On admission ) Gastrointestinal: No abdominal pain, No nausea Cardiovascular: + irregular heartbeat Respiratory: No coughing up blood Skin: No boils Blood / Lymphatic: No swollen glands Ears / Nose / Throat: No hoarse voice Psychologic / Mental: + trouble remembering Male : + see HPI, + blood in urine Physical Exam Vital Signs: Vital Signs Past 12 Hours Date Time Temp Pulse Resp B/P (MAP) Pulse Ox O2 Delivery O2 Flow Rate FiO2 10/04/17 07:34 103 126/84 10/04/17 04:30 37.2 107 19 126/84 (98) 95 Nasal Cannula 2.0 10/04/17 04:00 Nasal Cannula 2.0 10/04/17 00:55 36.5 113 23 141/81 93 Nasal Cannula 2.0 10/04/17 00:20 121 184/79 10/04/17 00:19 117 32 182/79 97 Non-Rebreather 15.0 10/04/17 00:06 133 10/04/17 00:02 116 34 195/165 95 Non-Rebreather 10/03/17 23:59 138 36 137/93 10/03/17 23:55 153 10/03/17 23:30 111 34 151/94 10/03/17 23:03 116 25 163/90 90 Room Air 10/03/17 22:34 112 18 167/89 94 Room Air 10/03/17 20:39 93 Room Air 10/03/17 20:30 113 10/03/17 20:24 37.9 118 20 165/113 95 Room Air Physical Exam: General Appearance: WD/WN, no apparent distress ENT: hearing grossly normal Neck: no adenopathy Respiratory/Chest: no respiratory distress, no accessory muscle use Cardiovascular: no JVD Gastrointestinal: Abdomen: normal abdomen Renal: normal renal Hernia: absent hernia Liver: normal liver Genitourinary - Male: Penis: normal penis (Uncircumcised) Urethral Meatus: normal urethral meatus (Hargrove catheter present, minimal bleeding around catheter) Testes: normal testes Scrotum: normal scrotum Extremities: non-tender Neurologic/Psychiatric: + disoriented Skin: normal color Lymphatic: no adenopathy Assessment & Plan Assessment & Plan A/P 87-year-old male with a history of prostate cancer, DEMOND, chronic urinary obstruction with stricture disease and chronic Hargrove. Patient's bleeding around the catheter suggests a urethral source. I suspect that this bleeding is not going to be of hemodynamic significance or require transfusion. Should anticoagulation or antiplatelets be required I would suspect that the benefits of these would outweigh the risks of bleeding from the Hargrove. Would avoid manipulation or attempts at exchange of the Hargrove seen the patient's history of stricture disease. Continue to monitor the patient on a one-to-one basis to avoid Hargrove trauma or attempts at self discontinuation. Patient has an upcoming appointment for fully exchange in the office in less than 2 weeks; would plan on planned exchange at that time. Cystoscopy can be done at that time if necessary. Thank you for allowing us to participate in this patient's care. Please contact our service with any questions or concerns.
[2017-10-04] MEDS ORDERED: ATORVASTATIN 10 MG TAB PO SCH (09:00)
[2017-10-04] MEDS ORDERED: VANCOMYCIN IV 1,000 MG in SODIUM CHLORIDE 0.9% 250ML 250 ML IV SCH (09:00)
[2017-10-04] MEDS ORDERED: LOSARTAN POTASSIUM 50 MG TAB PO SCH (09:00)
[2017-10-04] MEDS ORDERED: METOPROLOL TARTRATE 25 MG TAB PO SCH (09:00)
[2017-10-04] MEDS ORDERED: RANITIDINE HCL 150 MG TAB PO SCH (09:00)
[2017-10-04] MEDS ORDERED: PHENAZOPYRIDINE HCL 200 MG TAB PO SCH (09:00)
--- NOTE | 2017-10-04 09:36 | Family Medicine Progress Note ---
Progress Note Date of Service Oct 04, 2017. Subjective Pt evaluation today including: conversation w/ patient, conversation w/ family (daughter) Initially spoke with patient early this morning. He shook his head that he was not in any acute pain but was not really answering many questions. Made good eye contact, though. Spoke with patient and daughter early this afternoon. She noted that patient is very hard of hearing. With some shouting, patient answered questions, stating that overall he felt rather good. Denied any present lightheadedness, CP, SOB, or abdominal pain. Only said that the hargrove cath bothered him. Otherwise no acute patient concerns. Daughter stated she was quite concerned that if he did not get his evening donepezil there would be risk of him having "hallucinations" and potential difficulty physically controlling him (per her prior experience when the medication was held). Otherwise she had no immediate concerns. Respiratory: No cough, No shortness of breath Cardiovascular: No chest pain Abdomen: No pain Additional Comments: ROS partially limited by underlying dementia. Medications Current Inpatient Medications Medications (Trade) Dose Ordered Sig/Alva Route Start Time Stop Time Status Last Admin Dose Admin Ondansetron HCl (Zofran Inj) 4 mg Q6H PRN IV 10/03/17 22:45 11/02/17 22:44 Miscellaneous Information (Consult) 1 ea UD PRN N/A 10/03/17 22:45 11/02/17 22:44 Miscellaneous Information (Consult) 1 ea UD PRN N/A 10/03/17 22:45 11/02/17 22:44 Levofloxacin 750 mg/Prmx 150 ml @ 100 mls/hr Q24H IV 10/04/17 04:00 11/15/17 03:59 10/04/17 04:54 100 MLS/HR Pantoprazole Sodium 40 mg/ Dextrose 100 ml @ 20 mls/hr Q5H IV 10/03/17 23:30 11/02/17 23:29 10/04/17 07:20 20 MLS/HR Ioversol (Optiray 320) 100 ml UD PRN IV 10/04/17 00:15 10/08/17 00:14 Piperacillin Sod/ Tazobactam Sod 3.375 gm/Sodium Chloride 115 ml @ 28.75 mls/ hr Q8H IV 10/04/17 06:00 11/15/17 05:59 10/04/17 07:24 28.75 MLS/HR Metoprolol Tartrate (Lopressor Iv) 5 mg Q4 IV. 10/04/17 08:00 11/03/17 07:59 10/04/17 07:34 5 MG Objective Vital Signs Date Time Temp Pulse Resp B/P (MAP) Pulse Ox O2 Delivery O2 Flow Rate FiO2 10/04/17 08:15 36.6 82 18 159/81 (107) 97 Nasal Cannula 2.0 10/04/17 08:00 Nasal Cannula 2.0 10/04/17 07:34 103 126/84 10/04/17 04:30 37.2 107 19 126/84 (98) 95 Nasal Cannula 2.0 10/04/17 04:00 Nasal Cannula 2.0 10/04/17 00:55 36.5 113 23 141/81 93 Nasal Cannula 2.0 10/04/17 00:20 121 184/79 10/04/17 00:19 117 32 182/79 97 Non-Rebreather 15.0 10/04/17 00:06 133 10/04/17 00:02 116 34 195/165 95 Non-Rebreather 10/03/17 23:59 138 36 137/93 10/03/17 23:55 153 10/03/17 23:30 111 34 151/94 10/03/17 23:03 116 25 163/90 90 Room Air 10/03/17 22:34 112 18 167/89 94 Room Air 10/03/17 20:39 93 Room Air 10/03/17 20:30 113 10/03/17 20:24 37.9 118 20 165/113 95 Room Air Physical Exam Notes: General Appearance: Awake, alert and partially oriented, comfortable in general , in NAD. CV: +S1S2 borderline tachycardia, 2/6 systolic murmur. Pulm: Clear to auscultation throughout. Abdomen: +BS, soft, non-tender, non-distended. Hargrove catheter in place, some minimal dried blood at meatus. Extremities: Moves all extremities easily and comfortably. Neuro: No gross neuro deficits. Lines: PIV. Laboratory Results 10/04/17 04:26 Red Blood Count 3.43, Mean Corpuscular Volume 93.6, Mean Corpuscular Hemoglobin 31.2, Mean Corpuscular Hemoglobin Concent 33.3, Mean Platelet Volume 9.7, Neutrophils (%) (Auto) 95.1, Lymphocytes (%) (Auto) 1.6, Monocytes (%) (Auto) 3.1, Eosinophils (%) (Auto) 0.0, Basophils (%) (Auto) 0.1, Neutrophils # (Auto) 13.06, Lymphocytes # (Auto) 0.22, Monocytes # (Auto) 0.43, Eosinophils # (Auto) 0.00, Basophils # (Auto) 0.01 10/04/17 08:03 10/04/17 04:26 Test 10/03/17 20:25 10/03/17 21:07 10/04/17 01:06 10/04/17 04:26 Prothrombin Time 13.8 SECONDS (9.0-12.0) Prothromb Time International Ratio 1.3 (0.9-1.1) Activated Partial Thromboplast Time 30.7 SECONDS (21.0-31.0) Partial Thromboplastin Ratio 1.2 Total Bilirubin 0.3 mg/dl (0.2-1) Aspartate Amino Transf (AST/SGOT) 17 U/L (15-37) Alanine Aminotransferase (ALT/SGPT) 19 U/L (12-78) Alkaline Phosphatase 54 U/L (45-117) Total Protein 7.0 gm/dl (6.4-8.2) Albumin 3.6 gm/dl (3.4-5.0) Globulin 3.4 gm/dl (2.5-4.0) Albumin/Globulin Ratio 1.1 (0.9-2) Bedside Lactic Acid Venous 1.69 mmol/L (0.90-1.70) Bedside Glucose 184 mg/dl (70-99) White Blood Count 13.74 K/uL (4.8-10.8) Red Blood Count 3.43 M/uL (4.7-6.1) Hemoglobin 10.7 g/dL (14.0-18.0) Hematocrit 32.1 % (42-52) Mean Corpuscular Volume 93.6 fL (80-100) Mean Corpuscular Hemoglobin 31.2 pg (25-34) Mean Corpuscular Hemoglobin Concent 33.3 g/dl (32-36) Platelet Count 154 K/uL (130-400) Mean Platelet Volume 9.7 fL (7.4-10.4) Neutrophils (%) (Auto) 95.1 % Lymphocytes (%) (Auto) 1.6 % Monocytes (%) (Auto) 3.1 % Eosinophils (%) (Auto) 0.0 % Basophils (%) (Auto) 0.1 % Neutrophils # (Auto) 13.06 K/uL (1.4-6.5) Lymphocytes # (Auto) 0.22 K/uL (1.2-3.4) Monocytes # (Auto) 0.43 K/uL (0.11-0.59) Eosinophils # (Auto) 0.00 K/uL (0-0.5) Basophils # (Auto) 0.01 K/uL (0-0.2) RDW Standard Deviation 51.7 fL (36.4-46.3) RDW Coefficient of Variation 15.1 % (11.5-14.5) Immature Granulocyte % (Auto) 0.1 % Immature Granulocyte # (Auto) 0.02 K/uL (0.00-0.02) Anion Gap 7.0 mmol/L (3-11) Est Creatinine Clear Calc Drug Dose 55.4 ml/min Estimated GFR () 70.2 Estimated GFR (Non- 60.5 BUN/Creatinine Ratio 26.9 (10-20) Calcium Level 8.2 mg/dl (8.5-10.1) Assessment and Plan 87 yo male admitted late [id number] for lightheadedness and SOB. PMH: HTN, HLD, prostate cancer (s/p radiation and ureterotomy with a chronic indwelling catheter), anemia, DM2, GERD, atrial flutter, kidney stones, syncope. PSH: Appendectomy, aortic valve replacement, right renal hernia repair, ureterotomy, cystolitholapaxy and TURP. Lightheaded / Altered mental status: Likely multifactorial, including his acute sepsis. CT head noted nothing acute. Urosepsis and bacteremia: Borderline fever but positive for tachycardia, tachypnea, and WBC 13. Lacate 1.69 and never hypotensive. Initial concerning source was urinary due to indwelling catheter. 07Apr started on vancomycin, zosyn, and levaquin. Early 06Apr culture results have been positive for gram negative bacilli in both blood and urine. SOB: Noted on admit in ED. CXR suggestive of volume overload without pulmonary consolidation. Given lasix 40 mg IV. CTA did not suggest PE. Symptomatically since resolved, with mid-high 90's on 2L NC. Cardiology onboard, notes initial mild volume overload improved with IV lasix (see their note). Advised holding lasix for prn use only since appears euvolemic at present. Tachycardia and atrial flutter: Around time of admit. In ED, given cardizem 10 mg IV x 2, then lopressor 5 mg IV. Cardiology onboard. Recommended prn metoprolol while cannot take pills. Is presently on scheduled metoprolol 5 mg q4h. Patient has permanent aflutter and home xarelto for same (but held here for GI bleed). Could consider restarting xarelto at 15 mg and ASA at 81 mg once GI bleed resolved. Periurethral bleeding: Long-standing history of prostate cancer, s/p cystolitholapaxy and TURP. Gets his hargrove cath changed q6h (next scheduled for 19Apr). Urology consulted, thinks bleeding is from urethral source. See their 07Apr note for full recommendations. GI bleeding: Reports of melena. Denies abdominal pain. Noted Hemoccult positive in the ED. Held his xarelto and aspirin. Started on protonix drip. Vitals and serial h/h have been stable. GI consulted. Recommended liquid diet for now with consideration for EGD on Friday. Daughter in room says she is reticent to have him undergo any procedures that involve sedation. Dementia: On home donepezil. Discussed risk of medication as related to GI bleeding with both attending (hospitalist), GI, and patient's daughter. Daughter is adamant that missing doses in the past leads to hallucinations and other issues. Relative risk seems higher with this than the GI bleed side (as daughter is leaning against procedural intervention), so kept patient on the medication. Code status: Full code but no mechanical ventilation. Diet: Clear liquids. DVT prophy: SCD's. Held Xarelto due to GI bleed as noted above. PT/OT: Deferred on admit. Dispo: Admit to telemetry. ? custodial resident. Resident Physician Supervision Note: I interviewed and examined the patient. Discussed with Dr. Cardenas and agree with findings and plan as documented in the note. Any exceptions or clarifications are listed here: None Documented By: Chapincito Bentley feeling ok overall. no new complaints. food consultant input appreciated no stomach pain vitals noted nad breathing unlabored no pallor or icterus no epigastric pain red urine blood around hargrove hematuria - likely from cath irritating urethral stricture and probable UTI - treat as above otherwise as above, resume anticoagulation once it's clear bleeding is resolving Resident Tracking Resident Involvement: Resident Care Provided Care Provided: Adult Hospital Medicine (inpatient)
--- NOTE | 2017-10-04 10:26 | Gastrointestinal Consultation ---
Gastrointestinal Consultation Date of Consultation: Oct 04, 2017 History of Present Illness Patient is a 87 year old male whom I was asked to consult on for melena. He is an 87-year-old male with significant medical history as below, but has history of A. fib flutter, urinary retention/prostate cancer and urethral stricture requiring long-term Blackwood use, on anticoagulation, who presented for near syncope with lethargy numbness tingling of his extremities. He does take Xarelto daily (last dose unknown), and has been noted to have significant hematuria and 1 or 2 bouts of potentially melena. His most recent melena was yesterday in the ER but none since admission to the floor 14 hours ago. He denies any abdominal pain nausea or vomiting, does not have heartburn or chronic epigastric distress. No overt or known NSAID use. Since his admission has had apparent confusion overnight being quite delirious, however this morning he is quite appropriate, without pulling at his IVs or Blackwood and answers questions appropriately, he denies any abdominal complaints and has not had a bowel movement. Upon presentation his hemoglobin is checked and was noted to be 11.5, followed by 10.7 and this morning is 11.0. Urology has seen him in and noted lack of concern of hemodynamic change of his hematuria. He does have A. fib and flutter and has had periods of tachycardia but this morning he has a normal heart rate within 70s-80s without hypotension. Imaging was concerning for potential mild heart failure without overt pulmonary edema, CT of his head was normal. He did have a transient episode of unclear etiology in the emergency room last night time he became quite anxious with tachypnea and required a nonrebreather at 15 L. Other review of his labs are noteworthy his BUN is mildly elevated but is had an elevation of his BUN for at least 5 years time. He complains of a dry mouth today but has no other complaints he is on one-to- one at the bedside and is with her overnight or this morning. 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 Status: Acute (2) Hematuria Status: Acute (3) Hypertension Status: Acute (4) Near syncope Status: Acute (5) Tachycardia Status: Acute (6) Urinary retention Status: Acute Family History FH: heart disease Social History Smoking Status: Former Smoker Drug Use: none Marital Status: Housing Status: lives alone Occupation Status: retired Allergies Coded Allergies: Lisinopril (Verified Adverse Reaction, Mild, DIARRHEA, 04/23/17) Current Medications Home Meds and Scripts Medications Dose Route/Sig Max Daily Dose Days Date Category Dose Instructions [Baby Shampoo] 1 Appln OPB QPM 10/03/17 Reported APPLY TO EYELIDS, DILUTE AND USE TO CLEANSE Ferrous Sulfate 325 Mg Tab 325 Mg PO BIDM 10/03/17 Reported Donepezil Hcl (Donepezil Hydrochloride) 10 Mg Tab 10 Mg PO QPM 10/03/17 Reported Lopressor (Metoprolol Tartrate) 25 Mg Tab 12.5 Mg PO BID 10/03/17 Reported Calcium 600 with Vitamin 600-400 mg-Unit (Calcium Carbonate-Cholecalcife) 1 Tab Tab 1 Tab PO DAILY 10/03/17 Reported Aspirin Ec (Aspirin) 325 Mg Tab 325 Mg PO DAILY 10/03/17 Reported Zantac (Ranitidine HCl) 150 Mg Tab 150 Mg PO BID 10/03/17 Reported Tylenol (Acetaminophen) 325 Mg Tab 650 Mg PO TID 10/03/17 Reported DO NOT EXCEED 3 GM APAP/24 HOURS Tylenol (Acetaminophen) 325 Mg Tab 650 Mg PO Q6H PRN 10/03/17 Reported DO NOT EXCEED 3 GM APAP/24 HOURS Pyridium (Phenazopyridine Hcl) 200 Mg Tab 200 Mg PO Q8 PRN 04/23/17 Reported Flonase Allergy Relief (Fluticasone Propionate (Nasal)) 50 Mcg/Act Spr 2 Sprays JUNI DAILY 04/23/17 Reported Xarelto (Rivaroxaban) 20 Mg Tab 20 Mg PO QPM 04/12/16 Reported Vitamin D3 (Cholecalciferol) 1,000 Unit Tab 1,000 Inter.unit PO QAM 04/12/16 Reported Cozaar (Losartan Potassium) 100 Mg Tab 100 Mg PO QAM 07/23/13 Reported Lipitor (Atorvastatin Calcium) 10 Mg Tab 10 Mg PO QPM 05/31/08 Reported Review of Systems Constitutional: + see HPI Eyes: No see HPI, No worsening of vision, No eye pain, No redness, No discharge , No diplopia, No problem reported ENT: No see HPI, No hearing loss, No unusual epistaxis, No nasal symptoms, No sore throat, No tinnitus, No dental problems, No trouble swallowing, No pain on swallowing, No problem reported Respiratory: No see HPI, No cough, No sputum, No wheezing, No shortness of breath, No dyspnea on exertion, No dyspnea at rest, No hemoptysis, No problem reported Physical Exam Date Time Temp Pulse Resp B/P (MAP) Pulse Ox O2 Delivery O2 Flow Rate FiO2 10/04/17 08:15 36.6 82 18 159/81 (107) 97 Nasal Cannula 2.0 10/04/17 08:00 Nasal Cannula 2.0 10/04/17 07:34 103 126/84 10/04/17 04:30 37.2 107 19 126/84 (98) 95 Nasal Cannula 2.0 10/04/17 04:00 Nasal Cannula 2.0 10/04/17 00:55 36.5 113 23 141/81 93 Nasal Cannula 2.0 10/04/17 00:20 121 184/79 10/04/17 00:19 117 32 182/79 97 Non-Rebreather 15.0 10/04/17 00:06 133 10/04/17 00:02 116 34 195/165 95 Non-Rebreather 10/03/17 23:59 138 36 137/93 10/03/17 23:55 153 10/03/17 23:30 111 34 151/94 10/03/17 23:03 116 25 163/90 90 Room Air 10/03/17 22:34 112 18 167/89 94 Room Air 10/03/17 20:39 93 Room Air 10/03/17 20:30 113 10/03/17 20:24 37.9 118 20 165/113 95 Room Air General Appearance: WD/WN, no apparent distress Eyes: normal inspection, PERRL ENT: normal ENT inspection, hearing grossly normal Neck: supple, no adenopathy Respiratory/Chest: chest non-tender, + crackles Cardiovascular: regular rate, rhythm, no edema, no gallop Abdomen: normal bowel sounds, non tender, soft Extremities: normal range of motion Laboratory Results Last 24 Hours Test 10/03/17 20:25 10/03/17 21:07 10/04/17 00:11 10/04/17 01:06 White Blood Count 6.81 K/uL Red Blood Count 3.74 M/uL Hemoglobin 11.5 g/dL 11.8 g/dL Hematocrit 35.5 % 36.5 % Mean Corpuscular Volume 94.9 fL Mean Corpuscular Hemoglobin 30.7 pg Mean Corpuscular Hemoglobin Concent 32.4 g/dl Platelet Count 163 K/uL Mean Platelet Volume 9.8 fL Neutrophils (%) (Auto) 87.3 % Lymphocytes (%) (Auto) 8.7 % Monocytes (%) (Auto) 0.9 % Eosinophils (%) (Auto) 1.8 % Basophils (%) (Auto) 0.3 % Neutrophils # (Auto) 5.95 K/uL Lymphocytes # (Auto) 0.59 K/uL Monocytes # (Auto) 0.06 K/uL Eosinophils # (Auto) 0.12 K/uL Basophils # (Auto) 0.02 K/uL RDW Standard Deviation 51.3 fL RDW Coefficient of Variation 14.8 % Immature Granulocyte % (Auto) 1.0 % Immature Granulocyte # (Auto) 0.07 K/uL Prothrombin Time 13.8 SECONDS Prothromb Time International Ratio 1.3 Activated Partial Thromboplast Time 30.7 SECONDS Partial Thromboplastin Ratio 1.2 Sodium Level 142 mmol/L Potassium Level 4.0 mmol/L Chloride Level 108 mmol/L Carbon Dioxide Level 30 mmol/L Anion Gap 5.0 mmol/L Blood Urea Nitrogen 30 mg/dl Creatinine 1.16 mg/dl Est Creatinine Clear Calc Drug Dose 53.1 ml/min Estimated GFR () 64.4 Estimated GFR (Non- 55.5 BUN/Creatinine Ratio 25.7 Random Glucose 106 mg/dl Calcium Level 8.6 mg/dl Total Bilirubin 0.3 mg/dl Aspartate Amino Transf (AST/SGOT) 17 U/L Alanine Aminotransferase (ALT/SGPT) 19 U/L Alkaline Phosphatase 54 U/L Total Protein 7.0 gm/dl Albumin 3.6 gm/dl Globulin 3.4 gm/dl Albumin/Globulin Ratio 1.1 Bedside Lactic Acid Venous 1.69 mmol/L Bedside Glucose 184 mg/dl Test 10/04/17 04:26 10/04/17 08:03 White Blood Count 13.74 K/uL Red Blood Count 3.43 M/uL Hemoglobin 10.7 g/dL 11.0 g/dL Hematocrit 32.1 % 33.2 % Mean Corpuscular Volume 93.6 fL Mean Corpuscular Hemoglobin 31.2 pg Mean Corpuscular Hemoglobin Concent 33.3 g/dl Platelet Count 154 K/uL Mean Platelet Volume 9.7 fL Neutrophils (%) (Auto) 95.1 % Lymphocytes (%) (Auto) 1.6 % Monocytes (%) (Auto) 3.1 % Eosinophils (%) (Auto) 0.0 % Basophils (%) (Auto) 0.1 % Neutrophils # (Auto) 13.06 K/uL Lymphocytes # (Auto) 0.22 K/uL Monocytes # (Auto) 0.43 K/uL Eosinophils # (Auto) 0.00 K/uL Basophils # (Auto) 0.01 K/uL RDW Standard Deviation 51.7 fL RDW Coefficient of Variation 15.1 % Immature Granulocyte % (Auto) 0.1 % Immature Granulocyte # (Auto) 0.02 K/uL Sodium Level 141 mmol/L Potassium Level 3.7 mmol/L Chloride Level 107 mmol/L Carbon Dioxide Level 27 mmol/L Anion Gap 7.0 mmol/L Blood Urea Nitrogen 29 mg/dl Creatinine 1.08 mg/dl Est Creatinine Clear Calc Drug Dose 55.4 ml/min Estimated GFR () 70.2 Estimated GFR (Non- 60.5 BUN/Creatinine Ratio 26.9 Random Glucose 163 mg/dl Calcium Level 8.2 mg/dl Impression Patient is a 87 year old male presenting with syncope, hematuria, concern for melena, complicated by delirium and possible heart failure in the setting of known intermittent atrial tachycardia on anticoagulation. Plan He exhibits no signs of acute ongoing GI bleeding at this time. I do agree with continuation of the IV PPI as ordered, his blood count is actually increased since admission and I see no role for continued q. 4 hour H&H's unless has evidence of bleeding. He has a quite robust blood pressure and is pulse is normalized. Certainly his UA is difficult to interpret but broad- spectrum antibiotics do seem appropriate in this setting, and with an elevated white count mental status changes weakness, infection may be the most culprit reason for his presentation. The differential diagnosis for his potential GI bleeding would be peptic ulcer disease, AVM, or potential proctitis from his brachytherapy. Again seen no evidence of any ongoing overt GI bleeding. Continue supportive care Continue IV PPI Okay for liquid diet Can make n.p.o. after midnight on Friday night pending continued stability for Dr. Olivera to evaluate for EGD on Friday if necessary Call with any questions or of course any clinical change in status. I would continue to hold his Xarelto given his hematuria and potential GI bleeding.
[2017-10-04 11:45] VITALS: BP_SYST 160; BP_SYST 161; BP_DIAS 82; BP_DIAS 85; PULSE 81; TEMP 36.4; O2SAT 94
[2017-10-04 12:39] LABS: HEMATOCRIT 31.4 % (42-52); HEMOGLOBIN 10.5 g/dL (14.0-18.0)
--- NOTE | 2017-10-04 12:56 | Pharmacy Progress Note ---
Pharmacy Antibiotic Consult Date of Service: Oct 04, 2017. Pharmacy Dosing Scope Pharmacy is consulted to initiate vancomycin and Zosyn IV dosing therapy, order appropriate labs and adjust drug dose/frequency. Subjective The patient is a 87 year old male admitted on Oct 03, 2017 at 23:15 with HTN, HLD , prostate cancer s/p radiation s/p urterotomy, chronic indwelling catheter , patient of Dr. House. Presents with progressive SOB, sweating, lightheadedness. Empiric abx are ordered: Currently, Urine cx and one bc of 2 are positive for GNB. White count has jumped to 13.7. ABX are empiric, R/O endocarditis. Objective Height (Feet): 5 Height (Inches): 10.00 Weight (Kilograms): 101.500 Lab Results (24hrs): Test 10/03/17 20:25 10/03/17 21:07 10/04/17 01:06 10/04/17 04:26 White Blood Count 6.81 K/uL (4.8-10.8) 13.74 K/uL (4.8-10.8) Red Blood Count 3.74 M/uL (4.7-6.1) 3.43 M/uL (4.7-6.1) Hemoglobin 11.5 g/dL (14.0-18.0) 10.7 g/dL (14.0-18.0) Hematocrit 35.5 % (42-52) 32.1 % (42-52) Mean Corpuscular Volume 94.9 fL (80-100) 93.6 fL (80-100) Mean Corpuscular Hemoglobin 30.7 pg (25-34) 31.2 pg (25-34) Mean Corpuscular Hemoglobin Concent 32.4 g/dl (32-36) 33.3 g/dl (32-36) Platelet Count 163 K/uL (130-400) 154 K/uL (130-400) Mean Platelet Volume 9.8 fL (7.4-10.4) 9.7 fL (7.4-10.4) Neutrophils (%) (Auto) 87.3 % 95.1 % Lymphocytes (%) (Auto) 8.7 % 1.6 % Monocytes (%) (Auto) 0.9 % 3.1 % Eosinophils (%) (Auto) 1.8 % 0.0 % Basophils (%) (Auto) 0.3 % 0.1 % Neutrophils # (Auto) 5.95 K/uL (1.4-6.5) 13.06 K/uL (1.4-6.5) Lymphocytes # (Auto) 0.59 K/uL (1.2-3.4) 0.22 K/uL (1.2-3.4) Monocytes # (Auto) 0.06 K/uL (0.11-0.59) 0.43 K/uL (0.11-0.59) Eosinophils # (Auto) 0.12 K/uL (0-0.5) 0.00 K/uL (0-0.5) Basophils # (Auto) 0.02 K/uL (0-0.2) 0.01 K/uL (0-0.2) RDW Standard Deviation 51.3 fL (36.4-46.3) 51.7 fL (36.4-46.3) RDW Coefficient of Variation 14.8 % (11.5-14.5) 15.1 % (11.5-14.5) Immature Granulocyte % (Auto) 1.0 % 0.1 % Immature Granulocyte # (Auto) 0.07 K/uL (0.00-0.02) 0.02 K/uL (0.00-0.02) Prothrombin Time 13.8 SECONDS (9.0-12.0) Prothromb Time International Ratio 1.3 (0.9-1.1) Activated Partial Thromboplast Time 30.7 SECONDS (21.0-31.0) Partial Thromboplastin Ratio 1.2 Sodium Level 142 mmol/L (136-145) 141 mmol/L (136-145) Potassium Level 4.0 mmol/L (3.5-5.1) 3.7 mmol/L (3.5-5.1) Chloride Level 108 mmol/L (98-107) 107 mmol/L (98-107) Carbon Dioxide Level 30 mmol/L (21-32) 27 mmol/L (21-32) Anion Gap 5.0 mmol/L (3-11) 7.0 mmol/L (3-11) Blood Urea Nitrogen 30 mg/dl (7-18) 29 mg/dl (7-18) Creatinine 1.16 mg/dl (0.60-1.40) 1.08 mg/dl (0.60-1.40) Est Creatinine Clear Calc Drug Dose 53.1 ml/min 55.4 ml/min Estimated GFR () 64.4 70.2 Estimated GFR (Non- 55.5 60.5 BUN/Creatinine Ratio 25.7 (10-20) 26.9 (10-20) Random Glucose 106 mg/dl (70-99) 163 mg/dl (70-99) Calcium Level 8.6 mg/dl (8.5-10.1) 8.2 mg/dl (8.5-10.1) Total Bilirubin 0.3 mg/dl (0.2-1) Aspartate Amino Transf (AST/SGOT) 17 U/L (15-37) Alanine Aminotransferase (ALT/SGPT) 19 U/L (12-78) Alkaline Phosphatase 54 U/L (45-117) Total Protein 7.0 gm/dl (6.4-8.2) Albumin 3.6 gm/dl (3.4-5.0) Globulin 3.4 gm/dl (2.5-4.0) Albumin/Globulin Ratio 1.1 (0.9-2) Bedside Lactic Acid Venous 1.69 mmol/L (0.90-1.70) Bedside Glucose 184 mg/dl (70-99) Test 10/04/17 08:03 10/04/17 12:09 Hemoglobin 11.0 g/dL (14.0-18.0) 10.5 g/dL (14.0-18.0) Hematocrit 33.2 % (42-52) 31.4 % (42-52) Micro Results: BC x 2, one of 2 positive for gnb. Urine: gnb Assessment & Plan Vancomycin Loading dose: 2500 mg IV X 1 dose (23mg/kg) then: 1250 mg IV every 18 hours. Dosing is adjusted for BMI 32.1kg/m2 to hopefully avoid accumulation. Goal trough level estimate: between 15 - 20 mcg/mL. Peak and trough or random level has been ordered for: 10/06 prior to 0800 dose. Zosyn 3.375gm over 30 min x 1, then Zosyn 3.375gm q 8h extended infusion for CrCl > 20ml/min, Pt also ordered Levaquin 750mg IV q 24h (not a pharmacy consult). Pharmacy will continue to follow and will adjust dose/frequency as necessary. Thank you
--- NOTE | 2017-10-04 15:14 | Cardiology Consultation ---
Cardiology Consultation Date of Service Oct 04, 2017. Cardiology Consultation CARDIOLOGY CONSULTATION DATE OF CONSULTATION: October 04, 2017 REFERRING PHYSICIAN: Shree Cassidy MD REASON FOR CONSULT: Atrial dysrhythmias/chronic anticoagulation/ bleeding HISTORY OF PRESENT ILLNESS: 87-year-old man with history bioprosthetic AVR 2013, permanent atrial flutter ( on Xarelto), nonobstructive CAD, prostate cancer (chronic indwelling Blackwood), with cognitive impairment, who was admitted 10/03/2017 with urethral bleeding around his Blackwood catheter. He did have an episode of apparent presyncope prior to his presentation as well as episode of increased respiratory effort while in the ER with with reports of fever and chills. He was presumed septic and placed on multiple antibiotics. He was also noted to have mild volume overload received a dose of IV Lasix 40 mg. His hemoglobin has been fairly stable overnight, he has been mildly hypertensive and mildly tachycardic. He notes that he slept well he was able to lie flat, he denied any chest pain or dyspnea. He had no specific complaints other than some discomfort from the catheter at the time of my visit earlier today. MEDICATIONS: Donepezil Levofloxacin IV Metoprolol IV p.r.n. tachycardia Protonix IV Zosyn IV Vancomycin IV ALLERGIES: Lisinopril caused diarrhea. PAST MEDICAL HISTORY: Prostate cancer Nonobstructive coronary artery disease Bioprosthetic aortic valve Permanent atrial flutter Dementia Dyslipidemia 9 GERD Hearing loss Hyperglycemia Hypertension Sleep apnea Nephrolithiasis PVCs Unstable gait Urethral stricture Urinary tract infection PAST SURGICAL HISTORY: Appendectomy Bioprosthetic aortic valve replacement Herniorrhaphy Ureterotomy SOCIAL HISTORY: Former smoker. . Retired. FAMILY HISTORY: Noncontributory given his advanced age. REVIEW OF SYSTEMS: Not obtainable currently due to his dementia and limited interaction. PHYSICAL EXAMINATION: No distress. Vitals: Initial temp 37.9, subsequently afebrile. BP mild to moderately hypertensive, most recent 161/82. Pulse is currently 81 and irregular, as high as 153 transient lead. Respirations 18 and unlabored. Skin: No unusual lesions or ecchymosis. HEENT: Unremarkable. Neck: Jugular venous pulse not obviously elevated, no carotid bruits. Lungs: Mildly decreased breath sounds but clear bilaterally. No wheezing or crackles. Cardiac: Irregular rhythm with intact aortic closure sound, 2/6 basal systolic ejection murmur. No diastolic murmur. Abdomen: Benign. Extremities: Nontender without edema. Intact peripheral pulses. Neurologic: [id number], answers simple questions appropriately, grossly nonfocal DATA: ECG on admission showed supraventricular tachycardia, given his history most likely atrial flutter with ventricular rate of 113 bpm. Hemoglobin has been in the 10.5-11.8 range. White count increased from 6.8-13.7. Platelet count is normal. Baseline INR 1.3 with normal PTT. Normal electrolytes, BUN 29, creatinine 1.08 with glucose 184. Cardiac enzymes not obtained. Chest x-ray showed cardiomegaly with mild Gokul vascular congestion. CT of the head showed no acute intracranial abnormality. CT of the chest showed no pulmonary embolism. IMPRESSION: 1. Possible presyncope, multifactorial (? Sepsis, bleeding, tachycardia). 2. Permanent atrial flutter, rate suboptimally controlled. 3. Chronic anticoagulation (was on Xarelto 20 mg daily with aspirin 325 mg daily). 4. Bioprosthetic aortic valve. 5. Nonobstructive coronary artery disease. 6. Prostate carcinoma with chronic fully for ureteral stricture. 7. Cognitive impairment. 8. Transient volume overload, resolved. 9. Multiple other comorbidities. DISCUSSION: PRESYNCOPE: Patient presented with borderline fever and mildly decompensated hemodynamics (mild hypertension/tachycardia), subjective fever and chills, possible presyncope, and evidence of mild vascular congestion. He is being managed for possible sepsis and was given multiple IV antibiotics and IV steroids. The absence of hypotension or bradycardia, no current evidence of cardiac etiology for presyncope. VOLUME OVERLOAD: He did receive a dose of IV Lasix yesterday with good results , at the time of my evaluation was able lie flat, he appeared comfortable and euvolemic. He is not on chronic diuretics as an outpatient, therefore would hold further diuretics in utilize IV Lasix only on a p.r.n. basis. TACHYCARDIA: His initial tachycardia also improved markedly, as an outpatient this is managed with metoprolol 12.5 mg twice daily. Apparently, is unable to take oral pills presently is being managed with IV metoprolol on a p.r.n. basis. Would continue this for now with aim of keeping his ventricular rate below 100-110 bpm. ATRIAL FLUTTER/ANTICOAGULATION: He has a bioprosthetic valve and therefore does not need anticoagulation for this, however he has permanent atrial flutter and is on Xarelto. Certainly, temporarily holding Xarelto and aspirin is appropriate in the context of ongoing bleeding. Once his bleeding ceases, could consider restarting on lower dose of Xarelto (15 mg), while remaining off aspirin. If he does eventually restart aspirin, would recommend only 81 mg rather than 325 mg. Will follow along with you. Thank you for this consultation.
[2017-10-04 17:01] VITALS: BP 168/74; PULSE 72; TEMP 36.6; O2SAT 91
[2017-10-04 19:59] VITALS: BP 124/71; PULSE 72; TEMP 36.6; O2SAT 93
[2017-10-04] MEDS ORDERED: VANCOMYCIN IV 1,250 MG in SODIUM CHLORIDE 0.9% 250ML 250 ML IV SCH (20:00)
[2017-10-04] MEDS ORDERED: DONEPEZIL HCL 5 MG TAB PO SCH (21:00)
[2017-10-04] MEDS: DONEPEZIL HCL 10 MG TAB PO SCH (21:24)
[2017-10-05 00:07] VITALS: BP 114/69; PULSE 77; TEMP 36.7; O2SAT 90
[2017-10-05] MEDS: PANTOprazole INJ 40 MG in DEXTROSE 5% 100ML IV SCH ×5 (00:49→22:25)
[2017-10-05] MEDS: METOPROLOL TARTRATE 1 MG/ML VIAL IV. SCH ×4 (00:49→11:41)
[2017-10-05] MEDS: LEVOFLOXACIN / D5W 750 MG in PREMIXED IN D5W 150 ML IV SCH (03:44)
[2017-10-05 03:52] VITALS: BP 149/92; PULSE 80; TEMP 36.8; O2SAT 92
[2017-10-05] MEDS: PIPERACILL/TAZOBAC IV 3.375 GM in NSS 100ML IV SCH ×2 (05:24→13:51)
[2017-10-05 07:24] VITALS: BP 175/82; PULSE 73; TEMP 36.4; O2SAT 93
[2017-10-05 07:45] LABS: BASO % 0.1 %; BASO ABS # 0.01 K/uL (0-0.2); HEMATOCRIT 31.5 % (42-52); HEMOGLOBIN 10.2 g/dL (14.0-18.0); IG# 0.03 K/uL (0.00-0.02); LYMPH % 8.8 %; LYMPH ABS # 0.85 K/uL (1.2-3.4); MEAN CELL VOLUME 94.9 fL (80-100); MEAN CORPUSCULAR HEMOGLOBIN 30.7 pg (25-34); MEAN CORPUSCULAR HGB CONC 32.4 g/dl (32-36); MEAN PLATELET VOLUME 10.1 fL (7.4-10.4); MONO % 9.5 %; MONO ABS # 0.91 K/uL (0.11-0.59); NEUT % 81.3 %; NEUT ABS # 7.82 K/uL (1.4-6.5); PLATELET COUNT 144 K/uL (130-400); RED CELL DISTRIBUTION WIDTH CV 14.9 % (11.5-14.5); RED CELL DISTRIBUTION WIDTH SD 51.3 fL (36.4-46.3); WHITE BLOOD COUNT 9.62 K/uL (4.8-10.8)
[2017-10-05 08:12] LABS: CALCIUM 8.4 mg/dl (8.5-10.1); CREATININE 0.96 mg/dl (0.60-1.40); POTASSIUM 3.8 mmol/L (3.5-5.1)
--- NOTE | 2017-10-05 09:15 | Family Medicine Progress Note ---
Progress Note Date of Service Oct 05, 2017. Subjective Pt evaluation today including: conversation w/ patient Found patient lying upright in the bed. Says that his hargrove catheter is uncomfortable but otherwise he denies any acute concerns, including any CP, SOB , or abdominal pain. Says he is unsure if he had a bowel movement yet as an inpatient. Constitutional: No fever, No chills Respiratory: + shortness of breath, No cough Cardiovascular: No chest pain, No edema Abdomen: No pain, No nausea Medications Current Inpatient Medications Medications (Trade) Dose Ordered Sig/Alva Route Start Time Stop Time Status Last Admin Dose Admin Ondansetron HCl (Zofran Inj) 4 mg Q6H PRN IV 10/03/17 22:45 11/02/17 22:44 Miscellaneous Information (Consult) 1 ea UD PRN N/A 10/03/17 22:45 11/02/17 22:44 Miscellaneous Information (Consult) 1 ea UD PRN N/A 10/03/17 22:45 11/02/17 22:44 Levofloxacin 750 mg/Prmx 150 ml @ 100 mls/hr Q24H IV 10/04/17 04:00 11/15/17 03:59 10/05/17 03:44 100 MLS/HR Pantoprazole Sodium 40 mg/ Dextrose 100 ml @ 20 mls/hr Q5H IV 10/03/17 23:30 11/02/17 23:29 10/05/17 05:24 20 MLS/HR Ioversol (Optiray 320) 100 ml UD PRN IV 10/04/17 00:15 10/08/17 00:14 Piperacillin Sod/ Tazobactam Sod 3.375 gm/Sodium Chloride 115 ml @ 28.75 mls/ hr Q8H IV 10/04/17 06:00 11/15/17 05:59 10/05/17 05:24 28.75 MLS/HR Metoprolol Tartrate (Lopressor Iv) 5 mg Q4 IV. 10/04/17 08:00 11/03/17 07:59 10/05/17 09:01 5 MG Vancomycin HCl 1250 mg/Sodium Chloride 275 ml @ 125 mls/hr Q18H IV 10/04/17 20:00 11/15/17 19:59 10/04/17 19:17 125 MLS/HR Donepezil HCl (Aricept Tab) 10 mg QPM PO 10/04/17 21:00 11/03/17 20:59 10/04/17 21:24 10 MG Objective Vital Signs Date Time Temp Pulse Resp B/P (MAP) Pulse Ox O2 Delivery O2 Flow Rate FiO2 10/05/17 09:01 73 175/82 10/05/17 07:24 36.4 73 20 175/82 (113) 93 Room Air 10/05/17 04:23 Nasal Cannula 2.0 10/05/17 03:53 79 149/92 10/05/17 03:52 36.8 80 20 149/92 (111) 92 Room Air 10/05/17 00:49 71 114/69 10/05/17 00:07 36.7 77 21 114/69 (84) 90 Room Air 10/05/17 00:00 Nasal Cannula 2.0 10/04/17 20:00 Nasal Cannula 2.0 10/04/17 19:59 36.6 72 18 124/71 (88) 93 Room Air 10/04/17 19:39 69 136/69 10/04/17 17:01 36.6 72 18 168/74 (105) 91 Room Air 10/04/17 15:47 81 160/85 10/04/17 15:12 Nasal Cannula 2.0 10/04/17 12:00 Nasal Cannula 2.0 10/04/17 11:45 36.4 81 18 161/82 (108) 94 160/85 (110) 10/04/17 11:37 94 137/84 Physical Exam Notes: General Appearance: Awake, alert and conversational, comfortable in general, in NAD. CV: +S1S2 RRR, 2/6 systolic murmur. Pulm: Clear to auscultation throughout. Abdomen: +BS, soft, non-tender, non-distended. Hargrove catheter in place, some continued minimal dried blood at meatus. Extremities: Moves all extremities easily and comfortably. Neuro: No gross neuro deficits. Lines: PIV. Laboratory Results 10/05/17 07:20 Red Blood Count 3.32, Mean Corpuscular Volume 94.9, Mean Corpuscular Hemoglobin 30.7, Mean Corpuscular Hemoglobin Concent 32.4, Mean Platelet Volume 10.1, Neutrophils (%) (Auto) 81.3, Lymphocytes (%) (Auto) 8.8, Monocytes (%) (Auto) 9.5, Eosinophils (%) (Auto) 0.0, Basophils (%) (Auto) 0.1, Neutrophils # (Auto) 7.82, Lymphocytes # (Auto) 0.85, Monocytes # (Auto) 0.91, Eosinophils # (Auto) 0.00, Basophils # (Auto) 0.01 10/05/17 07:20 Test 10/05/17 07:20 White Blood Count 9.62 K/uL (4.8-10.8) Red Blood Count 3.32 M/uL (4.7-6.1) Hemoglobin 10.2 g/dL (14.0-18.0) Hematocrit 31.5 % (42-52) Mean Corpuscular Volume 94.9 fL (80-100) Mean Corpuscular Hemoglobin 30.7 pg (25-34) Mean Corpuscular Hemoglobin Concent 32.4 g/dl (32-36) Platelet Count 144 K/uL (130-400) Mean Platelet Volume 10.1 fL (7.4-10.4) Neutrophils (%) (Auto) 81.3 % Lymphocytes (%) (Auto) 8.8 % Monocytes (%) (Auto) 9.5 % Eosinophils (%) (Auto) 0.0 % Basophils (%) (Auto) 0.1 % Neutrophils # (Auto) 7.82 K/uL (1.4-6.5) Lymphocytes # (Auto) 0.85 K/uL (1.2-3.4) Monocytes # (Auto) 0.91 K/uL (0.11-0.59) Eosinophils # (Auto) 0.00 K/uL (0-0.5) Basophils # (Auto) 0.01 K/uL (0-0.2) RDW Standard Deviation 51.3 fL (36.4-46.3) RDW Coefficient of Variation 14.9 % (11.5-14.5) Immature Granulocyte % (Auto) 0.3 % Immature Granulocyte # (Auto) 0.03 K/uL (0.00-0.02) Anion Gap 6.0 mmol/L (3-11) Est Creatinine Clear Calc Drug Dose 62.2 ml/min Estimated GFR () 80.9 Estimated GFR (Non- 69.8 BUN/Creatinine Ratio 25.2 (10-20) Calcium Level 8.4 mg/dl (8.5-10.1) Assessment and Plan 87 yo male admitted late [id number] for lightheadedness and SOB. PMH: HTN, HLD, prostate cancer (s/p radiation and ureterotomy with a chronic indwelling catheter), anemia, DM2, GERD, atrial flutter, kidney stones, syncope. PSH: Appendectomy, aortic valve replacement, right renal hernia repair, ureterotomy, cystolitholapaxy and TURP. Lightheaded / Altered mental status: Likely multifactorial, including his acute sepsis. CT head noted nothing acute. Urosepsis and bacteremia: Borderline fever but positive for tachycardia, tachypnea, and WBC 13. Lactate 1.69 and never hypotensive. Initial concerning source was urinary due to indwelling catheter. 07Apr started on vancomycin, zosyn, and levaquin. Single 06Apr BCx positive for gram negative bacilli. 06Apr UCx positive for E coli (pansensitive). 08Apr stopped vanc and zosyn. Wrote order to convert from IV to PO levaquin 750 mg daily starting 09Apr, planned total 14 day course. SOB: Noted on admit in ED. CXR suggestive of volume overload without pulmonary consolidation. Given lasix 40 mg IV. CTA did not suggest PE. Symptomatically since resolved, with SpO2 in mid-high 90's on 2L NC. Cardiology onboard, notes initial mild volume overload improved with IV lasix (see their note). Advised holding lasix for prn use only since appears euvolemic at present. Tachycardia and atrial flutter: Around time of admit. In ED, given Cardizem 10 mg IV x 2, then lopressor 5 mg IV. Cardiology onboard. Was briefly on IV metoprolol, but on 08Apr converted to metoprolol tartrate 25 mg PO BID (closer to his 5 mg IV q4h dose in past 24 hours), a bit higher than his home dose. Patient has permanent aflutter and home xarelto for same (but held here for GI bleed). - Will need monitoring of new metoprolol dosing and adjustments prn. - Could consider restarting xarelto at 15 mg and ASA at 81 mg once GI bleed resolved. Periurethral bleeding: Long-standing history of prostate cancer, s/p cystolitholapaxy and TURP. Gets his hargrove cath changed q 6 weeks (next scheduled for Apr). Urology consulted, thinks bleeding is from urethral source. See their note for full recommendations. GI bleeding: Reports of melena. Denies abdominal pain. Noted Hemoccult positive in the ED. Held his xarelto and aspirin. Started on protonix drip. Vitals and serial h/h have been stable. GI consulted. Recommended liquid diet and advance as tolerated. Initial thoughts of EGD on Friday () postponed due to family reluctance to have him undergo any procedures that involve sedation. Dementia: On home donepezil. Discussed risk of medication as related to GI bleeding with both attending (hospitalist), GI, and patient's daughter. Daughter is adamant that missing doses in the past leads to hallucinations and other issues. Relative risk seems higher with this than the GI bleed side (as daughter is leaning against procedural intervention), so kept patient on the medication. Code status: Full code but no mechanical ventilation. Diet: Clear liquids, advancing as tolerated. DVT prophy: SCD's. Held Xarelto due to GI bleed as noted above. PT/OT: Deferred on admit. Dispo: Admit to telemetry. [facility] resident. Considering d/c in next 24-48 hours. Resident supervision note I interviewed and examined the patient. Discussed with Dr. Cardenas and agree with findings and plan as documented in the note. Any exceptions or clarifications are listed here: None Documented By: Chapincito Bentley feeling ok overall. no new complaints. updated family. no complaints vitals noted nad, [place] but does OK w loud voice, breathing unlabored no pallor or icterus E Coli UTI / bacteremia w sepsis present on admission -lyons sensitive, levaquin x 14 days otherwise as above, improving Resident Tracking Resident Involvement: Resident Care Provided Care Provided: Adult Hospital Medicine (inpatient)
--- NOTE | 2017-10-05 11:33 | Progress Note ---
Subjective Date of Service: Oct 05, 2017. Subjective Pt evaluation today including: conversation w/ patient, physical exam, chart review, lab review, review of inpatient medication list Pain: Denies PO Intake: Mary PO Voiding: hargrove catheter in place (urine clear, draining well) 87 yo male with a history of CAP, chronic hargrove, stricture disease admitted with presyncope and chills, undergoing treatment for UTI. Patient no longer on 1 -1, much more coherent and conversant today. He reports he was brought in for "episodes" characterized by chills and shaking. He also notes his hargrove was replaced at the facility at week ago after falling out without difficulties. Previous notes reviewed, no new complaints. Labwork noted, Hb stable. 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 of usp anticoagulation Status: Acute (2) Hematuria Status: Acute (3) Hypertension Status: Acute (4) Near syncope Status: Acute (5) Tachycardia Status: Acute (6) Urinary retention Status: Acute Review of Systems Constitutional: No fever, No chills Eyes: No worsening of vision ENT: No hearing loss Respiratory: No shortness of breath Cardiac: No chest pain Abdomen: No pain, No nausea, No vomiting Male : + see HPI Neurologic: + memory loss, No paralysis Psychiatric: No depression symptoms, No anxiety Skin: No new/changing skin lesions Objective Vital Signs Date Time Temp Pulse Resp B/P (MAP) Pulse Ox O2 Delivery O2 Flow Rate FiO2 10/05/17 09:01 73 175/82 10/05/17 08:00 Room Air 10/05/17 07:24 36.4 73 20 175/82 (113) 93 Room Air 10/05/17 04:23 Nasal Cannula 2.0 10/05/17 03:53 79 149/92 10/05/17 03:52 36.8 80 20 149/92 (111) 92 Room Air 10/05/17 00:49 71 114/69 10/05/17 00:07 36.7 77 21 114/69 (84) 90 Room Air 10/05/17 00:00 Nasal Cannula 2.0 10/04/17 20:00 Nasal Cannula 2.0 10/04/17 19:59 36.6 72 18 124/71 (88) 93 Room Air 10/04/17 19:39 69 136/69 10/04/17 17:01 36.6 72 18 168/74 (105) 91 Room Air 10/04/17 15:47 81 160/85 10/04/17 15:12 Nasal Cannula 2.0 10/04/17 12:00 Nasal Cannula 2.0 10/04/17 11:45 36.4 81 18 161/82 (108) 94 160/85 (110) 10/04/17 11:37 94 137/84 Physical Exam General Appearance: WD/WN, no apparent distress ENT: hearing grossly normal Neck: supple, no adenopathy Respiratory/Chest: no respiratory distress, no accessory muscle use Cardiovascular: no JVD Abdomen: non tender, soft Neurologic/Psychiatric: alert Skin: normal color Comments: Hargrove in meatus, urine clear, minimal blood around catheter. Laboratory Results Last 24 Hours Test 10/04/17 12:09 10/05/17 07:20 Hemoglobin 10.5 g/dL 10.2 g/dL Hematocrit 31.4 % 31.5 % White Blood Count 9.62 K/uL Red Blood Count 3.32 M/uL Mean Corpuscular Volume 94.9 fL Mean Corpuscular Hemoglobin 30.7 pg Mean Corpuscular Hemoglobin Concent 32.4 g/dl Platelet Count 144 K/uL Mean Platelet Volume 10.1 fL Neutrophils (%) (Auto) 81.3 % Lymphocytes (%) (Auto) 8.8 % Monocytes (%) (Auto) 9.5 % Eosinophils (%) (Auto) 0.0 % Basophils (%) (Auto) 0.1 % Neutrophils # (Auto) 7.82 K/uL Lymphocytes # (Auto) 0.85 K/uL Monocytes # (Auto) 0.91 K/uL Eosinophils # (Auto) 0.00 K/uL Basophils # (Auto) 0.01 K/uL RDW Standard Deviation 51.3 fL RDW Coefficient of Variation 14.9 % Immature Granulocyte % (Auto) 0.3 % Immature Granulocyte # (Auto) 0.03 K/uL Sodium Level 140 mmol/L Potassium Level 3.8 mmol/L Chloride Level 105 mmol/L Carbon Dioxide Level 29 mmol/L Anion Gap 6.0 mmol/L Blood Urea Nitrogen 24 mg/dl Creatinine 0.96 mg/dl Est Creatinine Clear Calc Drug Dose 62.2 ml/min Estimated GFR () 80.9 Estimated GFR (Non- 69.8 BUN/Creatinine Ratio 25.2 Random Glucose 109 mg/dl Calcium Level 8.4 mg/dl Assessment and Plan A/P 87 yo male with chronic hargrove, UTI, prostate cancer, DEMOND. Will leave hargrove in place. Should be OK to restart anticoagulation per cardiology recommendations. Hb remains stable, no clinically significant blood loss during this episode. Continue antibiotics per primary service for pansensitive E. Coli. Due for outpatient hargrove exchange - will leave that visit as is. No acute intervention at this time. Will monitor hargrove drainage.
[2017-10-05 11:40] VITALS: BP 160/84; PULSE 74; TEMP 36.7; O2SAT 95
--- NOTE | 2017-10-05 11:51 | Gastroenterology Progress Note ---
Progress Note Date of Service: Oct 05, 2017 Subjective Pt evaluation today including: conversation w/ patient, conversation w/ family Looks and feels much better, is sitting up in the chair doing a word finding puzzle. He has been documented to have gram-negative bacteremia. No signs of bleeding. Medications Current Inpatient Medications Medications (Trade) Dose Ordered Sig/Alva Route Start Time Stop Time Status Last Admin Dose Admin Ondansetron HCl (Zofran Inj) 4 mg Q6H PRN IV 10/03/17 22:45 11/02/17 22:44 Miscellaneous Information (Consult) 1 ea UD PRN N/A 10/03/17 22:45 11/02/17 22:44 Miscellaneous Information (Consult) 1 ea UD PRN N/A 10/03/17 22:45 11/02/17 22:44 Levofloxacin 750 mg/Prmx 150 ml @ 100 mls/hr Q24H IV 10/04/17 04:00 11/15/17 03:59 10/05/17 03:44 100 MLS/HR Pantoprazole Sodium 40 mg/ Dextrose 100 ml @ 20 mls/hr Q5H IV 10/03/17 23:30 11/02/17 23:29 10/05/17 11:41 20 MLS/HR Ioversol (Optiray 320) 100 ml UD PRN IV 10/04/17 00:15 10/08/17 00:14 Piperacillin Sod/ Tazobactam Sod 3.375 gm/Sodium Chloride 115 ml @ 28.75 mls/ hr Q8H IV 10/04/17 06:00 11/15/17 05:59 10/05/17 05:24 28.75 MLS/HR Metoprolol Tartrate (Lopressor Iv) 5 mg Q4 IV. 10/04/17 08:00 11/03/17 07:59 10/05/17 11:41 5 MG Vancomycin HCl 1250 mg/Sodium Chloride 275 ml @ 125 mls/hr Q18H IV 10/04/17 20:00 11/15/17 19:59 10/04/17 19:17 125 MLS/HR Donepezil HCl (Aricept Tab) 10 mg QPM PO 10/04/17 21:00 11/03/17 20:59 10/04/17 21:24 10 MG Objective Vital Signs Date Time Temp Pulse Resp B/P (MAP) Pulse Ox O2 Delivery O2 Flow Rate FiO2 10/05/17 11:41 74 160/84 10/05/17 11:40 36.7 74 19 160/84 (109) 95 Room Air 10/05/17 09:01 73 175/82 10/05/17 08:00 Room Air 10/05/17 07:24 36.4 73 20 175/82 (113) 93 Room Air 10/05/17 04:23 Nasal Cannula 2.0 10/05/17 03:53 79 149/92 10/05/17 03:52 36.8 80 20 149/92 (111) 92 Room Air 10/05/17 00:49 71 114/69 10/05/17 00:07 36.7 77 21 114/69 (84) 90 Room Air 10/05/17 00:00 Nasal Cannula 2.0 10/04/17 20:00 Nasal Cannula 2.0 10/04/17 19:59 36.6 72 18 124/71 (88) 93 Room Air 10/04/17 19:39 69 136/69 10/04/17 17:01 36.6 72 18 168/74 (105) 91 Room Air 10/04/17 15:47 81 160/85 10/04/17 15:12 Nasal Cannula 2.0 10/04/17 12:00 Nasal Cannula 2.0 Physical Exam General Appearance: WD/WN, no apparent distress ENT: normal ENT inspection Respiratory/Chest: chest non-tender, lungs clear Cardiovascular: regular rate, rhythm, no edema Abdomen: normal bowel sounds, non tender Extremities: normal range of motion Neurologic/Psych: corrections sergeant II-XII nml as tested, no motor/sensory deficits Laboratory Results Last 24 Hours Test 10/04/17 12:09 10/05/17 07:20 Hemoglobin 10.5 g/dL 10.2 g/dL Hematocrit 31.4 % 31.5 % White Blood Count 9.62 K/uL Red Blood Count 3.32 M/uL Mean Corpuscular Volume 94.9 fL Mean Corpuscular Hemoglobin 30.7 pg Mean Corpuscular Hemoglobin Concent 32.4 g/dl Platelet Count 144 K/uL Mean Platelet Volume 10.1 fL Neutrophils (%) (Auto) 81.3 % Lymphocytes (%) (Auto) 8.8 % Monocytes (%) (Auto) 9.5 % Eosinophils (%) (Auto) 0.0 % Basophils (%) (Auto) 0.1 % Neutrophils # (Auto) 7.82 K/uL Lymphocytes # (Auto) 0.85 K/uL Monocytes # (Auto) 0.91 K/uL Eosinophils # (Auto) 0.00 K/uL Basophils # (Auto) 0.01 K/uL RDW Standard Deviation 51.3 fL RDW Coefficient of Variation 14.9 % Immature Granulocyte % (Auto) 0.3 % Immature Granulocyte # (Auto) 0.03 K/uL Sodium Level 140 mmol/L Potassium Level 3.8 mmol/L Chloride Level 105 mmol/L Carbon Dioxide Level 29 mmol/L Anion Gap 6.0 mmol/L Blood Urea Nitrogen 24 mg/dl Creatinine 0.96 mg/dl Est Creatinine Clear Calc Drug Dose 62.2 ml/min Estimated GFR () 80.9 Estimated GFR (Non- 69.8 BUN/Creatinine Ratio 25.2 Random Glucose 109 mg/dl Calcium Level 8.4 mg/dl Assessment and Plan Patient is a 87 year old male presenting with syncope, hematuria, concern for melena, complicated by delirium and possible heart failure in the setting of known intermittent atrial tachycardia on anticoagulation, now with bacteremia. Plan He continues to exhibit no signs of acute ongoing GI bleeding at this time. I do agree with continuation of the IV PPI as ordered, his blood count is actually increased since admission and I see no role for continued q. 4 hour H&H 's unless has evidence of bleeding. He has a quite robust blood pressure and is pulse is normalized. Certainly his UA is difficult to interpret but broad- spectrum antibiotics do seem appropriate in this setting, and with an elevated white count mental status changes weakness, infection may be the most culprit reason for his presentation. The differential diagnosis for his potential GI bleeding would be peptic ulcer disease, AVM, or potential proctitis from his brachytherapy. Again seen no evidence of any ongoing overt GI bleeding. Continue supportive care Continue IV PPI Okay for liquid diet advance diet as tolerated Little role likely for EGD given his stability, lack of melena, and family's wishes of not pursuing invasive treatment. Call with any questions or of course any clinical change in status. I would continue to hold his Xarelto given his hematuria and potential GI bleeding. Continue IV antibiotics for bacteremia
--- NOTE | 2017-10-05 15:01 | Cardiology Follow-Up ---
Cardiology Follow-Up Date of Service Oct 05, 2017. Cardiology Follow-Up SUBJECTIVE: 87-year-old man with history bioprosthetic AVR 2013, permanent atrial flutter ( on Xarelto), nonobstructive CAD, prostate cancer (chronic indwelling Blackwood), with cognitive impairment, who was admitted 10/03/2017 with urethral bleeding around his Blackwood catheter. He did have an episode of apparent presyncope prior to his presentation as well as episode of increased respiratory effort while in the ER with with reports of fever and chills. He was presumed septic and placed on multiple antibiotics. He was also noted to have mild volume overload received a dose of IV Lasix 40 mg. His hemoglobin has declined only minimally since admission and he has remained hemodynamically stable. He notes slept well and he was again able to lie flat, he denied any chest pain or dyspnea. He had no specific complaints other than some occasional discomfort from the catheter. He was working on a book of puzzles when I saw him today. PHYSICAL EXAMINATION: No distress. Vitals: BP most recent 161/82. Pulse is currently 81 and irregular, as high as 153 transient lead. Respirations 18 and unlabored. Skin: No unusual lesions or ecchymosis. HEENT: Unremarkable. Neck: Jugular venous pulse not obviously elevated, no carotid bruits. Lungs: Mildly decreased breath sounds but clear bilaterally. No wheezing or crackles. Cardiac: Irregular rhythm with intact aortic closure sound, 2/6 basal systolic ejection murmur. No diastolic murmur. Abdomen: Benign. Extremities: Nontender without edema. Intact peripheral pulses. Neurologic: [id number]-[id number], answers simple questions appropriately, grossly nonfocal DATA: Monitor with probable atrial flutter and now controlled ventricular response. Hemoglobin has been in the 10.2-11.8 range. White count 9.62, platelet count is normal. Normal electrolytes, BUN 24, creatinine 0.96 IMPRESSION: 1. Possible presyncope, multifactorial (? Sepsis, bleeding, tachycardia). 2. Permanent atrial flutter, rate controlled. 3. Chronic anticoagulation at baseline (was on Xarelto 20 mg daily with aspirin 325 mg daily, now off both). 4. Bioprosthetic aortic valve. 5. Nonobstructive coronary artery disease. 6. 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 7. Cognitive impairment. 8. Transient volume overload, resolved. 9. Multiple other comorbidities. DISCUSSION: PRESYNCOPE: No recurrence. Hemodynamics favorable. Mild hypertension preferred to hypotension, would not treat aggressively but would restart his losartan when he is taking oral meds again. VOLUME OVERLOAD: He did receive a dose of IV on admission with good results, no evidence of ongoing volume overload. He is not on chronic diuretics as an outpatient, therefore would hold further diuretics in utilize IV Lasix only on a p.r.n. basis. TACHYCARDIA: His initial tachycardia has resolved, as an outpatient this is managed with metoprolol 12.5 mg twice daily. Apparently, is unable to take oral pills presently is being managed with IV metoprolol on a p.r.n. basis. Would resume his oral metoprolol when able. ATRIAL FLUTTER/ANTICOAGULATION: He has a bioprosthetic valve and therefore does not need anticoagulation for this, however he has permanent atrial flutter and is on Xarelto. Certainly, temporarily holding Xarelto and aspirin is appropriate in the context of ongoing bleeding. Once his bleeding ceases, could consider restarting on lower dose of Xarelto (15 mg), while remaining off aspirin. If he does eventually restart aspirin, would recommend only 81 mg rather than 325 mg.
[2017-10-05 16:53] VITALS: BP 169/97; PULSE 84; TEMP 36.6; O2SAT 92
[2017-10-05 19:42] VITALS: BP 159/79; PULSE 75; TEMP 36.9; O2SAT 91
[2017-10-05] MEDS: METOPROLOL TARTRATE 25 MG TAB PO SCH (19:56)
[2017-10-05] MEDS: DONEPEZIL HCL 10 MG TAB PO SCH (19:56)
[2017-10-06] VITALS (9 sets, daily range): BP systolic 136–178; BP diastolic 69–91; PULSE 69–86; TEMP 36.6–37; O2SAT 91–96
[2017-10-06] MEDS: PANTOprazole INJ 40 MG in DEXTROSE 5% 100ML IV SCH ×2 (03:05→08:18)
[2017-10-06 07:28] LABS: BASO % 0.3 %; BASO ABS # 0.02 K/uL (0-0.2); EOS % 0.8 %; EOS ABS # 0.06 K/uL (0-0.5); HEMATOCRIT 33.6 % (42-52); HEMOGLOBIN 10.9 g/dL (14.0-18.0); IG# 0.01 K/uL (0.00-0.02); LYMPH % 13.2 %; LYMPH ABS # 1.01 K/uL (1.2-3.4); MEAN CELL VOLUME 94.6 fL (80-100); MEAN CORPUSCULAR HEMOGLOBIN 30.7 pg (25-34); MEAN CORPUSCULAR HGB CONC 32.4 g/dl (32-36); MEAN PLATELET VOLUME 10.1 fL (7.4-10.4); MONO % 10.7 %; MONO ABS # 0.82 K/uL (0.11-0.59); NEUT % 74.9 %; NEUT ABS # 5.75 K/uL (1.4-6.5); PLATELET COUNT 158 K/uL (130-400); RED CELL DISTRIBUTION WIDTH CV 14.8 % (11.5-14.5); RED CELL DISTRIBUTION WIDTH SD 51.3 fL (36.4-46.3); WHITE BLOOD COUNT 7.67 K/uL (4.8-10.8)
[2017-10-06] MEDS ORDERED: VANCOMYCIN TROUGH ONE (07:30)
[2017-10-06 07:58] LABS: CALCIUM 8.1 mg/dl (8.5-10.1); CREATININE 0.92 mg/dl (0.60-1.40); POTASSIUM 3.9 mmol/L (3.5-5.1)
[2017-10-06] MEDS: METOPROLOL TARTRATE 25 MG TAB PO SCH ×2 (08:16→20:19)
[2017-10-06] MEDS ORDERED: LEVOFLOXACIN 750 MG TAB PO SCH (09:00)
[2017-10-06] MEDS ORDERED: LOSARTAN POTASSIUM 50 MG TAB PO ONE (12:00)
--- NOTE | 2017-10-06 15:09 | Cardiology Follow-Up ---
Subjective Subjective Date of Service: Oct 06, 2017. Pt evaluation today including: conversation w/ patient, physical exam, chart review, lab review, review of studies, review of inpatient medication list Additional Details: No complaints. Denies chest pain or shortness of breath. Tele reviewed -- no events. 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 Status: Acute (2) Hematuria Status: Acute (3) Hypertension Status: Acute (4) Near syncope Status: Acute (5) Tachycardia Status: Acute (6) Urinary retention Status: Acute Review of Systems Constitutional: No fever, No chills Eyes: No worsening of vision ENT: No hearing loss Respiratory: No cough Cardiac: No chest pain, No edema Abdomen: No pain, No nausea Male : + see HPI Neurologic: + memory loss, No paralysis Psychiatric: No depression symptoms, No anxiety Skin: No new/changing skin lesions Objective Vital Signs Last Vital Signs Documentation Date Time Temp Pulse Resp B/P (MAP) Pulse Ox O2 Delivery O2 Flow Rate FiO2 10/06/17 12:00 94 Room Air 10/06/17 11:50 36.8 79 18 154/69 (97) 10/05/17 04:23 2.0 Physical Exam: General Appearance: no apparent distress Neck: + JVD (~7-8) Respiratory/Chest: no respiratory distress, no accessory muscle use, + decreased breath sounds (at bases) Cardiovascular: regular rate, rhythm, + extra beats Abdomen: non tender, soft Extremities: non-tender Neurologic/Psychiatric: alert Skin: normal color Lymphatic: no adenopathy Assessment and Plan 1. Urosepsis 2. Permanent atrial flutter, rate controlled. 3. Chronic anticoagulation at baseline (was on Xarelto 20 mg daily with aspirin 325 mg daily, now off both). 4. Bioprosthetic aortic valve. 5. Nonobstructive coronary artery disease. 6. 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 7. Cognitive impairment. 8. Transient volume overload, resolved. 10. Intermittent LBBB Hemodynamically stable on antihypertensives. Aflutter well rate controlled on metoprolol Blood counts stable off anticoagulation Well perfused on exam without significant congestion. -- resume anticoagulation with Xarelto when OK per GI. -- would continue to hold aspirin long-term -- continue current metoprolol, titrate up losartan as needed for hypertension. Medications: Current Inpatient Medications Medications (Trade) Dose Ordered Sig/Alva Route Start Time Stop Time Status Last Admin Dose Admin Ondansetron HCl (Zofran Inj) 4 mg Q6H PRN IV 10/03/17 22:45 11/02/17 22:44 Ioversol (Optiray 320) 100 ml UD PRN IV 10/04/17 00:15 10/08/17 00:14 Donepezil HCl (Aricept Tab) 10 mg QPM PO 10/04/17 21:00 11/03/17 20:59 10/05/17 19:56 10 MG Metoprolol Tartrate (Lopressor Tab) 25 mg BID PO 10/05/17 21:00 11/04/17 20:59 10/06/17 08:16 25 MG Levofloxacin (Levaquin Tab) 750 mg QAM PO 10/06/17 09:00 10/18/17 08:59 10/06/17 08:16 750 MG Losartan Potassium (coZAAR TAB) 50 mg QAM PO 10/07/17 09:00 11/06/17 08:59 Lab Results: 10/06/17 07:10 Red Blood Count 3.55, Mean Corpuscular Volume 94.6, Mean Corpuscular Hemoglobin 30.7, Mean Corpuscular Hemoglobin Concent 32.4, Mean Platelet Volume 10.1, Neutrophils (%) (Auto) 74.9, Lymphocytes (%) (Auto) 13.2, Monocytes (%) (Auto) 10.7, Eosinophils (%) (Auto) 0.8, Basophils (%) (Auto) 0.3, Neutrophils # (Auto ) 5.75, Lymphocytes # (Auto) 1.01, Monocytes # (Auto) 0.82, Eosinophils # (Auto ) 0.06, Basophils # (Auto) 0.02 10/06/17 07:10 Test 10/06/17 07:10 White Blood Count 7.67 K/uL (4.8-10.8) Red Blood Count 3.55 M/uL (4.7-6.1) Hemoglobin 10.9 g/dL (14.0-18.0) Hematocrit 33.6 % (42-52) Mean Corpuscular Volume 94.6 fL (80-100) Mean Corpuscular Hemoglobin 30.7 pg (25-34) Mean Corpuscular Hemoglobin Concent 32.4 g/dl (32-36) Platelet Count 158 K/uL (130-400) Mean Platelet Volume 10.1 fL (7.4-10.4) Neutrophils (%) (Auto) 74.9 % Lymphocytes (%) (Auto) 13.2 % Monocytes (%) (Auto) 10.7 % Eosinophils (%) (Auto) 0.8 % Basophils (%) (Auto) 0.3 % Neutrophils # (Auto) 5.75 K/uL (1.4-6.5) Lymphocytes # (Auto) 1.01 K/uL (1.2-3.4) Monocytes # (Auto) 0.82 K/uL (0.11-0.59) Eosinophils # (Auto) 0.06 K/uL (0-0.5) Basophils # (Auto) 0.02 K/uL (0-0.2) RDW Standard Deviation 51.3 fL (36.4-46.3) RDW Coefficient of Variation 14.8 % (11.5-14.5) Immature Granulocyte % (Auto) 0.1 % Immature Granulocyte # (Auto) 0.01 K/uL (0.00-0.02) Anion Gap 6.0 mmol/L (3-11) Est Creatinine Clear Calc Drug Dose 65.1 ml/min Estimated GFR () 85.2 Estimated GFR (Non- 73.5 BUN/Creatinine Ratio 23.6 (10-20) Calcium Level 8.1 mg/dl (8.5-10.1)
[2017-10-06] MEDS ORDERED: RIVAROXABAN TAB 15 MG TAB PO ONE (15:52)
--- NOTE | 2017-10-06 17:43 | PROGRESS NOTE ---
DATE: 10/06/2017 AGE: 87. SEX: Male. RACE: . SUBJECTIVE: I had the pleasure of seeing Demarcus Brantley at his bedside today. He states that he was feeling slightly improved. He denies any abdominal pain or bowel movements over the last 12 hours. He states that he has not had any hematemesis and states that he has tolerated a liquid diet as of this point. He denies any further complaints. REVIEW OF SYSTEMS: Negative for headaches, blurred vision, syncope, seizures, loss of consciousness, chest pain, palpitations, shortness of breath, cough, dysuria, hematuria, arthralgias, myalgias, numbness or tingling in his extremities, skin rash or weight loss. PHYSICAL EXAMINATION: VITAL SIGNS: Temp 36.8, pulse 79, respirations 18, blood pressure 154/69, pulse ox 96% on room air. GENERAL: Awake, cooperative, chronic ill appearing, in no acute distress. CHEST: Clear to auscultation bilaterally. CARDIOVASCULAR SYSTEM: Regular rate and rhythm. ABDOMEN: Soft, nontender, nondistended. Positive bowel sounds. EXTREMITIES: No clubbing, cyanosis, or edema. LABORATORY STUDIES: From today include an H&H of 10.9 and 33.6. His BUN was 22, creatinine 0.92. ASSESSMENT: This is an 87-year-old male who presented with syncope, hematuria and a concern for melena, on anticoagulation secondary to atrial tachycardia with bacteremia. PLAN: At the present time, he is showing no signs of overt GI bleeding. His blood count is actually improved. I would continue to monitor his symptoms. I would recommend changing him to p.o. Protonix 40 mg p.o. b.i.d. and would recommend advancing his diet as tolerated. I did discuss the case in detail with the primary care team and recommended that he be placed back on Xarelto therapy with continued monitoring to ensure that it does not exacerbate any GI bleeding source. Once again, thanks for allowing me to participate in the care of this patient. If you have any further questions, please do not hesitate in contacting me.
--- NOTE | 2017-10-06 19:13 | Family Medicine Progress Note ---
Progress Note Date of Service Oct 06, 2017. Subjective Pt evaluation today including: conversation w/ patient, physical exam Pain: Denies pain PO Intake: Tolerating well, advancing Voiding: hargrove catheter in place Patient resting comfortably, states he feels "pretty good". No complaints. Constitutional: No fever, No chills Respiratory: No cough Cardiovascular: No chest pain Abdomen: No nausea Male : + hematuria Neurologic: + memory loss Skin: No rash, No itch All Other Systems: Reviewed and Negative Medications Current Inpatient Medications Medications (Trade) Dose Ordered Sig/Alva Route Start Time Stop Time Status Last Admin Dose Admin Ondansetron HCl (Zofran Inj) 4 mg Q6H PRN IV 10/03/17 22:45 11/02/17 22:44 Ioversol (Optiray 320) 100 ml UD PRN IV 10/04/17 00:15 10/08/17 00:14 Donepezil HCl (Aricept Tab) 10 mg QPM PO 10/04/17 21:00 11/03/17 20:59 10/05/17 19:56 10 MG Metoprolol Tartrate (Lopressor Tab) 25 mg BID PO 10/05/17 21:00 11/04/17 20:59 10/06/17 08:16 25 MG Levofloxacin (Levaquin Tab) 750 mg QAM PO 10/06/17 09:00 10/18/17 08:59 10/06/17 08:16 750 MG Losartan Potassium (coZAAR TAB) 50 mg QAM PO 10/07/17 09:00 11/06/17 08:59 Pantoprazole Sodium (Protonix Tab) 40 mg BID PO 10/06/17 21:00 11/05/17 20:59 Rivaroxaban (Xarelto Tab) 15 mg DAILY PO 10/07/17 09:00 11/06/17 08:59 Objective Vital Signs Date Time Temp Pulse Resp B/P (MAP) Pulse Ox O2 Delivery O2 Flow Rate FiO2 10/06/17 18:18 36.8 69 16 155/85 (108) 94 Room Air 10/06/17 17:58 36.6 77 20 92 2.0 10/06/17 16:00 Room Air 10/06/17 15:11 36.6 77 20 155/83 (107) 92 Room Air 10/06/17 12:00 94 Room Air 10/06/17 11:50 36.8 79 18 154/69 (97) 96 10/06/17 08:00 94 Room Air 10/06/17 07:42 37.0 78 18 136/71 (92) 94 Room Air 10/06/17 04:31 37.0 74 19 178/91 (120) 93 Room Air 10/06/17 04:00 Room Air 10/06/17 00:45 36.8 86 21 171/89 (116) 91 Room Air 10/05/17 23:59 Room Air 10/05/17 20:00 Room Air 10/05/17 19:42 36.9 75 16 159/79 (105) 91 Room Air Physical Exam General Appearance: WD/WN, no apparent distress Eyes: normal inspection, PERRL ENT: + pertinent finding (Hard of hearing) Neck: supple, no JVD Respiratory/Chest: chest non-tender, lungs clear, normal breath sounds, no respiratory distress, no accessory muscle use Cardiovascular: no edema, + systolic murmur, + irregularly irregular Abdomen: normal bowel sounds, non tender, soft Extremities: normal inspection, no pedal edema, no calf tenderness Neurologic/Psychiatric: no motor/sensory deficits, alert, normal mood/affect Skin: normal color, warm/dry Laboratory Results Last Resulted 10/06/17 07:10 Red Blood Count 3.55, Mean Corpuscular Volume 94.6, Mean Corpuscular Hemoglobin 30.7, Mean Corpuscular Hemoglobin Concent 32.4, Mean Platelet Volume 10.1, Neutrophils (%) (Auto) 74.9, Lymphocytes (%) (Auto) 13.2, Monocytes (%) (Auto) 10.7, Eosinophils (%) (Auto) 0.8, Basophils (%) (Auto) 0.3, Neutrophils # (Auto ) 5.75, Lymphocytes # (Auto) 1.01, Monocytes # (Auto) 0.82, Eosinophils # (Auto ) 0.06, Basophils # (Auto) 0.02 Last Resulted 10/06/17 07:10 Assessment and Plan 87 yo male admitted late 03Oct2017 for lightheadedness and SOB. PMH: HTN, HLD, prostate cancer (s/p radiation and ureterotomy with a chronic indwelling catheter), anemia, DM2, GERD, atrial flutter, kidney stones, syncope. PSH: Appendectomy, aortic valve replacement, right renal hernia repair, ureterotomy, cystolitholapaxy and TURP. Metabolic encephalopathy: Likely multifactorial, including his acute sepsis. CT head noted nothing acute. Sepsis sec to UTI from indwelling hargrove catheter with bacteremia: Borderline fever but positive for tachycardia, tachypnea, and WBC 13. Lactate 1.69 and never hypotensive. Initial concerning source was urinary due to indwelling catheter. 07Apr started on vancomycin, zosyn, and levaquin. Single 06Apr BCx positive for gram negative bacilli. 06Apr UCx positive for E coli (pansensitive ). 08Apr stopped vanc and zosyn. converted to PO levaquin 750 mg daily starting 09Apr, planned total 14 day course, day 1 Acute pulmonary edema - Treated and resolved: Noted on admit in ED. CXR suggestive of volume overload without pulmonary consolidation. Given lasix 40 mg IV. CTA did not suggest PE. Symptomatically since resolved, with SpO2 in mid-high 90's on 2L NC. Now off O2. Cardiology onboard, notes initial mild volume overload improved with IV lasix (see their note). Advised holding lasix for prn use only since appears euvolemic at present. Tachycardia and atrial flutter: Around time of admit. In ED, given Cardizem 10 mg IV x 2, then lopressor 5 mg IV. Cardiology onboard. Was briefly on IV metoprolol, but on 08Apr converted to metoprolol tartrate 25 mg PO BID (closer to his 5 mg IV q4h dose in past 24 hours), a bit higher than his home dose. Patient has permanent aflutter and home xarelto for same (but held here for GI bleed). - Will need monitoring of new metoprolol dosing and adjustments prn. - Restart xarelto at 15 mg per cardiology recommendation and ASA at 81 mg once GI bleed resolved. - Follow up with cardio on discharge GI bleeding: Reports of melena. Denies abdominal pain. Noted Hemoccult positive in the ED. Held his xarelto and aspirin. Protonix drip DCd. Vitals and serial h/h have been stable. GI consulted. Recommended liquid diet and advance as tolerated. Initial thoughts of EGD on Friday (09Apr) postponed due to family reluctance to have him undergo any procedures that involve sedation. Converted to oral PPI, watch for bleeding with restart of xarelto. HTN: - On losartan at home, 100mg - Restarted today at 50 mg. Will monitor Periurethral bleeding: Long-standing history of prostate cancer, s/p cystolitholapaxy and TURP. Gets his hargrove cath changed q 6 weeks (next scheduled for 19Apr). Urology consulted, thinks bleeding is from urethral source. See their 07Apr note for full recommendations. Dementia: On home donepezil. Discussed risk of medication as related to GI bleeding with both attending (hospitalist), GI, and patient's daughter. Daughter is adamant that missing doses in the past leads to hallucinations and other issues. Relative risk seems higher with this than the GI bleed side (as daughter is leaning against procedural intervention), so kept patient on the medication. Code status: Full code but no mechanical ventilation. Diet: advancing as tolerated. DVT prophy: SCD's. Xarelto PT/OT: Ordered for today Dispo: Admit to telemetry. [facility] resident. Likely d/c in next 24-48 hours. Resident Tracking Resident Involvement: Resident Care Provided Care Provided: Adult Hospital Medicine Reviewed: Pt Seen/Exam by Me History no further GI bleeding. no shortness of breath Constitutional: denies: fever Respiratory: negative: short of breath Cardiovascular: denies chest pain General Appearance: no apparent distress Respiratory: lungs clear, no respiratory distress Cardiovascular: regular rate, rhythm Neurologic/Psychiatric: alert Skin Characteristics: warm/dry Assessment/Plan Resident Physician Supervision Note: I independently interviewed and examined the patient and verified the pride history and physical, reviewed labs and image studies, discussed the case with the resident Dr. Valdez and agree with the findings and care plan.
[2017-10-06] MEDS: PANTOprazole SOD 40 MG TAB PO SCH (20:19)
[2017-10-06] MEDS: DONEPEZIL HCL 10 MG TAB PO SCH (20:19)
[2017-10-07] VITALS: BP 151/87; PULSE 74; TEMP 36.6; O2SAT 91
--- NOTE | 2017-10-07 07:05 | Clinical Documentation Query ---
QUERY 1 OF [address] MENDIETA, "Urosepsis" will code only to a UTI. If pt has sepsis due to UTI, documentation must indicate such. In your clinical opinion is this patient being managed for: ( x ) Sepsis from UTI due to chronic indwelling hargrove catheter ( ) Not Agree ( ) Other explanation of clinical findings (Please Explain) ( ) Unable to determine (Please Define) ( ) Need to Discuss The medical record reflects the following clinical findings, treatment, and risk factors. Clinical Indicators:87 yo male presented with near syncope. Found to have UTI. Mention of "acute sepsis" in progress note beginning 10/04. Documentation has since become "urosepsis and bacteremia". 1 blood culture with E coli, UA cx E colli and probable pseudomonas Treatment:blood and urine cx, IV vancomycin, IV zosyn, IV levaquin, Risk Factors: chronic hargrove, A flutter, DM, CAD QUERY 2 OF 2 In your clinical opinion is this patient being managed for: ( x ) Acute pulmonary edema treated and resolved ( ) Not Agree ( ) Other explanation of clinical findings (Please Explain) ( ) Unable to determine (Please Define) ( ) Need to Discuss The medical record reflects the following clinical findings, treatment, and risk factors. Clinical Indicators: Documentation in H/P indicates CXR suggestive of pulmonary edema. Nursing notes in ER indicate pt developed dyspnea and required NRB mask and appeared anxious. Pt required additional physician intervention and treatment before he could be transferred to telemetry. Cardiology consult indicates "mild volume overload". Heart rate 112-153 with resp rates 25-36. Treatment: IV lasix, IV cardizem, IV lopressor, tele, O2 support Risk Factors: A flutter, sepsis, UTI, CAD, DM Please clarify and document your clinical opinion in the progress notes and discharge summary. Terms such as "probable", "suspected", "likely", "questionable", "possible", or "still to be ruled out" are acceptable. IF IN AGREEMENT, YOU MUST DOCUMENT ABOVE DIAGNOSTIC STATEMENT IN DAILY PROGRESS NOTES AND DISCHARGE SUMMARY. This document is not part of the patient's record. Thank You, Teri Riggins RN [phone]
--- NOTE | 2017-10-07 07:09 | Clinical Documentation Query ---
QUERY 1 OF [address] WONG, "Urosepsis" will code only to a UTI. If pt has sepsis due to UTI, documentation must indicate such. In your clinical opinion is this patient being managed for: ( x ) Sepsis from UTI due to chronic indwelling hargrove catheter ( ) Not Agree ( ) Other explanation of clinical findings (Please Explain) ( ) Unable to determine (Please Define) ( ) Need to Discuss The medical record reflects the following clinical findings, treatment, and risk factors. Clinical Indicators:87 yo male presented with near syncope. Found to have UTI. Mention of "acute sepsis" in progress note beginning 10/04. Documentation has since become "urosepsis and bacteremia". 1 blood culture with E coli, UA cx E colli and probable pseudomonas Treatment:blood and urine cx, IV vancomycin, IV zosyn, IV levaquin, Risk Factors: chronic hargrove, A flutter, DM, CAD QUERY 2 OF 2 In your clinical opinion is this patient being managed for: ( x ) Acute pulmonary edema treated and resolved ( ) Not Agree ( ) Other explanation of clinical findings (Please Explain) ( ) Unable to determine (Please Define) ( ) Need to Discuss The medical record reflects the following clinical findings, treatment, and risk factors. Clinical Indicators: Documentation in H/P indicates CXR suggestive of pulmonary edema. Nursing notes in ER indicate pt developed dyspnea and required NRB mask and appeared anxious. Pt required additional physician intervention and treatment before he could be transferred to telemetry. Cardiology consult indicates "mild volume overload". Heart rate 112-153 with resp rates 25-36. Treatment: IV lasix, IV cardizem, IV lopressor, tele, O2 support Risk Factors: A flutter, sepsis, UTI, CAD, DM Please clarify and document your clinical opinion in the progress notes and discharge summary. Terms such as "probable", "suspected", "likely", "questionable", "possible", or "still to be ruled out" are acceptable. IF IN AGREEMENT, YOU MUST DOCUMENT ABOVE DIAGNOSTIC STATEMENT IN DAILY PROGRESS NOTES AND DISCHARGE SUMMARY. This document is not part of the patient's record. Thank You, Teri Riggins RN [phone]
[2017-10-07 07:19] LABS: HEMOGLOBIN 11.3 g/dL (14.0-18.0); MEAN CELL VOLUME 93.4 fL (80-100); MEAN CORPUSCULAR HGB CONC 33.2 g/dl (32-36); PLATELET COUNT 166 K/uL (130-400); RED CELL DISTRIBUTION WIDTH CV 14.7 % (11.5-14.5)
[2017-10-07 07:23] VITALS: BP 166/94; PULSE 75; TEMP 36.9; O2SAT 92
[2017-10-07 07:50] LABS: CALCIUM 8.5 mg/dl (8.5-10.1); CREATININE 0.85 mg/dl (0.60-1.40); POTASSIUM 3.7 mmol/L (3.5-5.1)
[2017-10-07] MEDS: PANTOprazole SOD 40 MG TAB PO SCH ×2 (08:04→20:43)
[2017-10-07] MEDS: METOPROLOL TARTRATE 25 MG TAB PO SCH ×2 (08:04→20:43)
[2017-10-07] MEDS: LOSARTAN POTASSIUM 50 MG TAB PO SCH (08:10)
[2017-10-07] MEDS: RIVAROXABAN TAB 15 MG TAB PO SCH (08:11)
[2017-10-07 08:31] VITALS: O2SAT 94
[2017-10-07] MEDS ORDERED: LOSARTAN POTASSIUM 50 MG TAB PO SCH (09:00)
--- NOTE | 2017-10-07 09:45 | Gastroenterology Progress Note ---
Progress Note Date of Service: Oct 07, 2017 Subjective Pt evaluation today including: conversation w/ patient, physical exam, lab review, review of studies Patient is an 87 yo male GI has been following for a possible GI bleed while on oral anticoagulation. The patient reports today that he is doing well. He denies nausea, vomiting, abdominal pain, or rectal bleeding. He is presently on BID PPI therapy. His H/H is presently 11.3/34. He offers no further complaints at present. Review of Systems Constitutional: No fever, No chills Respiratory: No cough Cardiac: No chest pain Abdomen: No pain, No nausea, No vomiting, No diarrhea, No GI bleeding Musculoskeletal: No joint pain Medications Current Inpatient Medications Medications (Trade) Dose Ordered Sig/Alva Route Start Time Stop Time Status Last Admin Dose Admin Ondansetron HCl (Zofran Inj) 4 mg Q6H PRN IV 10/03/17 22:45 11/02/17 22:44 Ioversol (Optiray 320) 100 ml UD PRN IV 10/04/17 00:15 10/08/17 00:14 Donepezil HCl (Aricept Tab) 10 mg QPM PO 10/04/17 21:00 11/03/17 20:59 10/06/17 20:19 10 MG Metoprolol Tartrate (Lopressor Tab) 25 mg BID PO 10/05/17 21:00 11/04/17 20:59 10/07/17 08:04 25 MG Pantoprazole Sodium (Protonix Tab) 40 mg BID PO 10/06/17 21:00 11/05/17 20:59 10/07/17 08:04 40 MG Rivaroxaban (Xarelto Tab) 15 mg DAILY PO 10/07/17 09:00 11/06/17 08:59 10/07/17 08:11 15 MG Losartan Potassium (coZAAR TAB) 100 mg QAM PO 10/07/17 09:00 11/06/17 08:59 10/07/17 08:10 100 MG Levofloxacin (Levaquin Tab) 750 mg DAILY@1100 PO 10/07/17 11:00 10/18/17 10:59 Objective Vital Signs Date Time Temp Pulse Resp B/P (MAP) Pulse Ox O2 Delivery O2 Flow Rate FiO2 10/07/17 08:31 94 Room Air 10/07/17 07:23 36.9 75 16 166/94 (118) 92 Room Air 10/07/17 00:30 Room Air 10/07/17 00:00 36.6 74 20 151/87 (108) 91 Room Air 10/06/17 18:18 36.8 69 16 155/85 (108) 94 Room Air 10/06/17 17:58 36.6 77 20 92 2.0 10/06/17 16:00 Room Air 10/06/17 15:11 36.6 77 20 155/83 (107) 92 Room Air 10/06/17 12:00 94 Room Air 10/06/17 11:50 36.8 79 18 154/69 (97) 96 Physical Exam General Appearance: WD/WN, no apparent distress Eyes: normal inspection, PERRL ENT: hearing grossly normal Respiratory/Chest: lungs clear, normal breath sounds Cardiovascular: regular rate, rhythm Abdomen: normal bowel sounds, non tender, soft Extremities: non-tender Neurologic/Psych: alert, oriented x 3 Skin: normal color Laboratory Results Last 24 Hours Test 10/07/17 06:32 White Blood Count 6.60 K/uL Red Blood Count 3.64 M/uL Hemoglobin 11.3 g/dL Hematocrit 34.0 % Mean Corpuscular Volume 93.4 fL Mean Corpuscular Hemoglobin 31.0 pg Mean Corpuscular Hemoglobin Concent 33.2 g/dl RDW Standard Deviation 50.0 fL RDW Coefficient of Variation 14.7 % Platelet Count 166 K/uL Mean Platelet Volume 10.0 fL Sodium Level 140 mmol/L Potassium Level 3.7 mmol/L Chloride Level 104 mmol/L Carbon Dioxide Level 29 mmol/L Anion Gap 7.0 mmol/L Blood Urea Nitrogen 22 mg/dl Creatinine 0.85 mg/dl Est Creatinine Clear Calc Drug Dose 69.7 ml/min Estimated GFR () 89.5 Estimated GFR (Non- 77.3 BUN/Creatinine Ratio 25.6 Random Glucose 106 mg/dl Calcium Level 8.5 mg/dl Assessment and Plan Patient is an 87 yo male with anemia and questionable GI bleeding while on oral anticoagulation. Management has been conservative. Hemoglobin is 11.3/34.0. 1) Continue Protonix 40 mg BID. 2) Continue to monitor H/H and monitor for further signs/symptoms of GI bleeding. 3) Supportive care per primary team. Thank you for allowing us to participate in the care of this patient. If you should have any further questions or concerns, do not hesitate to contact us. Agree with SHAYLA Guallpa as above Abd: Soft, NT, ND, +BS Doing well at present, without overt GI bleeding Continue current therapy Will follow clinical course and make further recommendations as needed.
[2017-10-07] MEDS ORDERED: DOCUSATE SODIUM 100 MG CAP PO ONE (10:30)
[2017-10-07] MEDS: LEVOFLOXACIN 750 MG TAB PO SCH (10:45)
--- NOTE | 2017-10-07 11:41 | Progress Note ---
Subjective Date of Service: Oct 07, 2017. Subjective Pt evaluation today including: conversation w/ patient, chart review, lab review Voiding: hargrove catheter in place (patent, draining clear, yellow urine ) 87 yo male with stricture disease, UTI. Pt denies pain today. Doing well. Working on a numbered puzzle. 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 Status: Acute (2) Hematuria Status: Acute (3) Hypertension Status: Acute (4) Near syncope Status: Acute (5) Tachycardia Status: Acute (6) Urinary retention Status: Acute Review of Systems Constitutional: No fever, No chills Respiratory: No shortness of breath Cardiac: No chest pain Abdomen: No pain, No nausea, No vomiting Male : No hematuria Heme: No abnormal bleeding/bruising Objective Vital Signs Date Time Temp Pulse Resp B/P (MAP) Pulse Ox O2 Delivery O2 Flow Rate FiO2 10/07/17 08:31 94 Room Air 10/07/17 07:23 36.9 75 16 166/94 (118) 92 Room Air 10/07/17 00:30 Room Air 10/07/17 00:00 36.6 74 20 151/87 (108) 91 Room Air 10/06/17 18:18 36.8 69 16 155/85 (108) 94 Room Air 10/06/17 17:58 36.6 77 20 92 2.0 10/06/17 16:00 Room Air 10/06/17 15:11 36.6 77 20 155/83 (107) 92 Room Air 10/06/17 12:00 94 Room Air 10/06/17 11:50 36.8 79 18 154/69 (97) 96 Physical Exam General Appearance: no apparent distress Eyes: normal inspection ENT: hearing grossly normal Neck: no JVD Respiratory/Chest: no respiratory distress Cardiovascular: no JVD Extremities: normal inspection Neurologic/Psychiatric: alert, normal mood/affect, oriented x 3 Skin: normal color Laboratory Results Last 24 Hours Test 10/07/17 06:32 White Blood Count 6.60 K/uL Red Blood Count 3.64 M/uL Hemoglobin 11.3 g/dL Hematocrit 34.0 % Mean Corpuscular Volume 93.4 fL Mean Corpuscular Hemoglobin 31.0 pg Mean Corpuscular Hemoglobin Concent 33.2 g/dl RDW Standard Deviation 50.0 fL RDW Coefficient of Variation 14.7 % Platelet Count 166 K/uL Mean Platelet Volume 10.0 fL Sodium Level 140 mmol/L Potassium Level 3.7 mmol/L Chloride Level 104 mmol/L Carbon Dioxide Level 29 mmol/L Anion Gap 7.0 mmol/L Blood Urea Nitrogen 22 mg/dl Creatinine 0.85 mg/dl Est Creatinine Clear Calc Drug Dose 69.7 ml/min Estimated GFR () 89.5 Estimated GFR (Non- 77.3 BUN/Creatinine Ratio 25.6 Random Glucose 106 mg/dl Calcium Level 8.5 mg/dl Assessment and Plan A/P: UTI, urethral stricture, urinary retention Pt doing well. No hematuria. Continue Levaquin for a total of 10-14 days of therapy for UTI. The pt is scheduled for f/u with Dr. House on 10-16 at 11:30am for cysto and hargrove change. Will keep as scheduled. No further management at this time. Recall PRN issues. Thanks for allowing us to participate in this pt's care.
--- NOTE | 2017-10-07 13:38 | Discharge Instructions ---
Discharge Instructions Date of Service Oct 09, 2017. Admission Reason for Admission: Near Syncope, Uretheral Bleeding Discharge Discharge Diagnosis / Problem: Sepsis from UTI 2/2 chornic indwelling catheter Discharge Goals Goal(s): Improve function, Prevent Disease Progression Activity Recommendations Activity Limitations: per Instructions/Follow-up section . Instructions / Follow-Up Instructions / Follow-Up 87 yo male admitted for lightheadedness and SOB, found to meet sepsis criteria with bacteremia 2/2 UTI from indwelling catheter. PMH includes HTN, HLD, prostate cancer (s/p radiation and ureterotomy with a chronic indwelling catheter), anemia, DM2, GERD, atrial flutter, kidney stones, syncope. PSH: Appendectomy, aortic valve replacement, right renal hernia repair, ureterotomy, cystolitholapaxy and TURP. Sepsis with bacteremia from UTI 2/2 indwelling hargrove catheter, resolved -On admission: tachycardic, tachypneic, and WBC 13. Lactate 1.69, no hypotension. -Started on vancomycin, zosyn, and levaquin. Single BCx positive for GNB. Cx positive for E coli. Stopped vanc and zosyn. Converted to PO levaquin 750 mg daily starting 09Apr, planned total 14 day course. Metabolic encephalopathy: Likely multifactorial, including acute sepsis on admission. CT head noted nothing acute. Reportedly at baseline. Acute pulmonary edema, treated and resolved: -CXR suggestive of volume overload without pulmonary consolidation. Given lasix 40 mg IV. Resolved, now off O2. -Cardiology onboard, notes initial mild volume overload improved with IV lasix. Advised holding lasix for prn use only since appears euvolemic Hematuria from ? Periurethral bleeding: - bleeding again with blockage of hargrove after resuming xarelto. Hargrove flushed and changed. Holding xarelto. Bleeding ceased after holding xarelto. H&H stable. - Will continue to hold xarelto until further evaluation with cardiology. Advised on increased risk of stroke off xarelto. - Long-standing history of prostate cancer, s/p cystolitholapaxy and TURP. Next scheduled hargrove removal 19Apr. Tachycardia and atrial flutter on admission: - Given Cardizem 10 mg IV x 2, lopressor 5 mg IV. Was briefly on IV metoprolol , converted to metoprolol tartrate 25 mg PO BID, higher than home dose. - Patient has permanent aflutter and on home xarelto - Restarted xarelto at 15 mg per cardiology recommendation and ASA at 81 mg once GI bleed resolved. Approximately 24 hrs after restarting xarelto, hematuria returned. Xarelto held and bleeding ceased. H&H stable - Will continue to hold xarelto until further evaluation with cardiology. Advised on increased risk of stroke off xarelto. GI bleeding: -Reported melena prior to admission. Noted Hemoccult positive in the ED. -Held his xarelto and aspirin temporarily. Protonix drip DCd. Vitals and serial h/h stable. -Thoughts of EGD postponed due to family reluctance to have him undergo any procedures involving sedation. -Converted to oral PPI. H&H has remained stable. -Will continue to hold xarelto until further evaluation with cardiology. Advised on increased risk of stroke off xarelto. HTN: -Home dose losartan 100mg Dementia: -On home donepezil. Discussed risk of GI bleeding with patient's daughter. Daughter adamant that missing doses leads to hallucinations and other issues. -Relative risk seems higher with this than the GI bleed side effect, so kept patient on the medication. Code: Full code but no mechanical ventilation. Current Hospital Diet Patient's current hospital diet: AHA Diet (Heart Healthy) Discharge Diet Recommended Diet: AHA Diet (Heart Healthy) Pending Studies Studies pending at discharge: no Medical Emergencies . Who to Call and When: Medical Emergencies: If at any time you feel your situation is an emergency, please call 911 immediately. . Non-Emergent Contact Non-Emergency issues call your: Primary Care Provider . . "Provider Documentation" section prepared by Bianka Valdez. .
[2017-10-07] MEDS ORDERED: LVQ750 PO (13:41)
[2017-10-07] MEDS ORDERED: XRL15 PO (13:41)
[2017-10-07 15:10] VITALS: BP 135/77; PULSE 78; TEMP 37; O2SAT 92
--- NOTE | 2017-10-07 19:16 | Family Medicine Progress Note ---
Progress Note Date of Service Oct 07, 2017. Subjective Pt evaluation today including: conversation w/ patient, physical exam Pain: Denies pain PO Intake: Tolerating well Voiding: hargrove catheter in place Patient alert, sitting in chair this morning. States he continues to feel better each day. Would very much like to leave hospital. Constitutional: No fever, No chills ENT: + hearing loss Respiratory: No cough, No sputum Cardiovascular: No chest pain Abdomen: No pain, No nausea Male : + problem reported (Some discomfort with hargrove) Neurologic: + memory loss All Other Systems: Reviewed and Negative Medications Current Inpatient Medications Medications (Trade) Dose Ordered Sig/Alva Route Start Time Stop Time Status Last Admin Dose Admin Ondansetron HCl (Zofran Inj) 4 mg Q6H PRN IV 10/03/17 22:45 11/02/17 22:44 Ioversol (Optiray 320) 100 ml UD PRN IV 10/04/17 00:15 10/08/17 00:14 Donepezil HCl (Aricept Tab) 10 mg QPM PO 10/04/17 21:00 11/03/17 20:59 10/06/17 20:19 10 MG Metoprolol Tartrate (Lopressor Tab) 25 mg BID PO 10/05/17 21:00 11/04/17 20:59 10/07/17 08:04 25 MG Pantoprazole Sodium (Protonix Tab) 40 mg BID PO 10/06/17 21:00 11/05/17 20:59 10/07/17 08:04 40 MG Rivaroxaban (Xarelto Tab) 15 mg DAILY PO 10/07/17 09:00 11/06/17 08:59 10/07/17 08:11 15 MG Losartan Potassium (coZAAR TAB) 100 mg QAM PO 10/07/17 09:00 11/06/17 08:59 10/07/17 08:10 100 MG Levofloxacin (Levaquin Tab) 750 mg DAILY@1100 PO 10/07/17 11:00 10/18/17 10:59 10/07/17 10:45 750 MG Objective Vital Signs Date Time Temp Pulse Resp B/P (MAP) Pulse Ox O2 Delivery O2 Flow Rate FiO2 10/07/17 15:30 Room Air 10/07/17 15:10 37.0 78 18 135/77 (96) 92 10/07/17 08:31 94 Room Air 10/07/17 07:23 36.9 75 16 166/94 (118) 92 Room Air 10/07/17 00:30 Room Air 10/07/17 00:00 36.6 74 20 151/87 (108) 91 Room Air Physical Exam General Appearance: WD/WN, no apparent distress Eyes: normal inspection, EOMI ENT: + pertinent finding ([place]) Respiratory/Chest: lungs clear, normal breath sounds, no respiratory distress Cardiovascular: regular rate, rhythm, no edema, no murmur Abdomen: normal bowel sounds, non tender, soft Extremities: normal inspection, no pedal edema, no calf tenderness Neurologic/Psychiatric: no motor/sensory deficits, alert, + disoriented Skin: normal color, warm/dry Laboratory Results Last Resulted 10/07/17 06:32 Last Resulted 10/07/17 06:32 Assessment and Plan 87 yo male admitted for lightheadedness and SOB, found to meet sepsis criteria with bacteremia 2/2 UTI from indwelling catheter. PMH includes HTN, HLD, prostate cancer (s/p radiation and ureterotomy with a chronic indwelling catheter), anemia, DM2, GERD, atrial flutter, kidney stones, syncope. PSH: Appendectomy, aortic valve replacement, right renal hernia repair, ureterotomy, cystolitholapaxy and TURP. Sepsis with bacteremia from UTI 2/2 indwelling hargrove catheter, resolved -On admission: tachycardic, tachypnic, and WBC 13. Lactate 1.69, no hypotension. -Started on vancomycin, zosyn, and levaquin. Single BCx positive for GNB. Cx positive for E coli. Stopped vanc and zosyn. Converted to PO levaquin 750 mg daily starting 09Apr, planned total 14 day course. Metabolic encephalopathy: Likely multifactorial, including acute sepsis on admission. CT head noted nothing acute. Reportedly at baseline. Acute pulmonary edema, treated and resolved: -CXR suggestive of volume overload without pulmonary consolidation. Given lasix 40 mg IV. Resolved, now off O2. -Cardiology onboard, notes initial mild volume overload improved with IV lasix. Advised holding lasix for prn use only since appears euvolemic at present. Tachycardia and atrial flutter on admission: - Given Cardizem 10 mg IV x 2, lopressor 5 mg IV. Was briefly on IV metoprolol , converted to metoprolol tartrate 25 mg PO BID, higher than home dose. - Patient has permanent aflutter and on home xarelto - Restarted xarelto at 15 mg per cardiology recommendation and ASA at 81 mg once GI bleed resolved. - Follow up with cardio on discharge GI bleeding: -Reported melena prior to admission. Noted Hemoccult positive in the ED. -Held his xarelto and aspirin temporarily. Protonix drip DCd. Vitals and serial h/h stable. -Thoughts of EGD postponed due to family reluctance to have him undergo any procedures involving sedation. -Converted to oral PPI. Repeat H&H after starting xarelto nl. HTN: -Home dose losartan 100mg Periurethral bleeding: -Long-standing history of prostate cancer, s/p cystolitholapaxy and TURP. Next scheduled hargrove removal 19Apr. Dementia: -On home donepezil. Discussed risk of GI bleeding with patient's daughter. Daughter adamant that missing doses leads to hallucinations and other issues. -Relative risk seems higher with this than the GI bleed side effect, so kept patient on the medication. Code: Full code but no mechanical ventilation. DVTP: xarelto Dispo: Discharge to rehab tomorrow Resident Tracking Resident Involvement: Resident Care Provided Care Provided: Adult Hospital Medicine Reviewed: Pt Seen/Exam by Me History no concerns overnight. no bleeding in hargrove Constitutional: denies: fever Respiratory: negative: short of breath Cardiovascular: denies chest pain General Appearance: no apparent distress Respiratory: lungs clear, no respiratory distress Cardiovascular: regular rate, rhythm Gastrointestinal: soft Neurologic/Psychiatric: alert Skin Characteristics: warm/dry Assessment/Plan Resident Physician Supervision Note: I independently interviewed and examined the patient and verified the pride history and physical, reviewed labs and image studies, discussed the case with the resident Dr. Valdez and agree with the findings and care plan.
[2017-10-07 19:42] VITALS: BP 161/92; PULSE 80
[2017-10-07] MEDS: DONEPEZIL HCL 10 MG TAB PO SCH (20:43)
[2017-10-08 00:13] VITALS: BP 142/81; PULSE 76; TEMP 36.3; O2SAT 94
[2017-10-08 07:13] VITALS: BP 155/84; PULSE 76; TEMP 36.9; O2SAT 96
--- NOTE | 2017-10-08 07:20 | Discharge Summary ---
Discharge Summary Date of Service Oct 09, 2017. Discharge Summary Admission Date: Oct 03, 2017 at 23:15 Discharge Date: Oct 08, 2017 Discharge Disposition: custodial facility Principal Diagnosis: Sepsis with bacteremia from UTI 2/2 indwelling hargrove catheter, resolved Problems/Secondary Diagnoses: HTN, HLD, prostate cancer, anemia, DM2, GERD, atrial flutter, kidney stones, syncope, Appendectomy, aortic valve replacement, right renal hernia repair, ureterotomy, cystolitholapaxy and TURP. Metabolic encephalopathy Acute pulmonary edema, treated and resolved Tachycardia and atrial flutter on admission GI bleeding Periurethral bleeding Dementia Immunizations: Have You Had Influenza Vaccine: Yes History of Tetanus Vaccine?: Yes History of Pneumococcal: Yes History of Hepatitis B Vaccine: No Consultations: Urology, Cardiology Medication Reconciliation New Medications: Levofloxacin (Levofloxacin) 750 Mg Tab 750 MG PO DAILY@1100 for 12 Days, TAB Rivaroxaban (Xarelto) 15 Mg Tab 15 MG PO DAILY for 30 Days, #30 TAB Continued Medications: Acetaminophen (Tylenol) 325 Mg Tab 650 MG PO Q6H PRN for Pain or Fever, TAB DO NOT EXCEED 3 GM APAP/24 HOURS Aspirin (Aspirin Ec) 325 Mg Tab 325 MG PO DAILY Atorvastatin (Lipitor) 10 Mg Tab 10 MG PO QPM Calcium Carbonate-Cholecalcife (Calcium 600 with Vitamin 600-400 mg-Unit) 1 Tab Tab 1 TAB PO DAILY Cholecalciferol (Vitamin D3) 1,000 Unit Tab 1000 INTER.UNIT PO QAM Donepezil Hydrochloride (Donepezil Hcl) 10 Mg Tab 10 MG PO QPM Ferrous Sulfate (Ferrous Sulfate) 325 Mg Tab 325 MG PO BIDM Fluticasone Propionate (Nasal) (Flonase Allergy Relief) 50 Mcg/Act Spr 2 SPRAYS JUNI DAILY Losartan Potassium (Cozaar) 100 Mg Tab 100 MG PO QAM Metoprolol Tartrate (Lopressor) 25 Mg Tab 12.5 MG PO BID, TAB Phenazopyridine Hcl (Pyridium) 200 Mg Tab 200 MG PO Q8 PRN for Urinary Pain, TAB Ranitidine Hcl (Zantac) 150 Mg Tab 150 MG PO BID, TAB [Baby Shampoo] () 1 APPLN OPB QPM APPLY TO EYELIDS, DILUTE AND USE TO CLEANSE Discontinued Medications: Acetaminophen (Tylenol) 325 Mg Tab 650 MG PO TID, TAB DO NOT EXCEED 3 GM APAP/24 HOURS Rivaroxaban (Xarelto) 20 Mg Tab 20 MG PO QPM Discharge Exam Review of Systems: Constitutional: No fever, No chills ENT: + hearing loss Respiratory: No cough Abdomen: No nausea, No vomiting Genitourinary - Male: + urinary retention Physical Exam: General Appearance: WD/WN, no apparent distress Eyes: EOMI ENT: + pertinent finding ([place]) Respiratory/Chest: chest non-tender, lungs clear, no respiratory distress, no accessory muscle use Cardiovascular: regular rate, rhythm, no edema, normal peripheral pulses Abdomen / GI: non tender, soft Extremities: no calf tenderness, no pedal edema Neurologic/Psychiatric: alert, + disoriented Hospital Course 87 yo male admitted for lightheadedness and SOB, found to meet sepsis criteria with bacteremia 2/2 UTI from indwelling catheter. PMH includes HTN, HLD, prostate cancer (s/p radiation and ureterotomy with a chronic indwelling catheter), anemia, DM2, GERD, atrial flutter, kidney stones, syncope. PSH: Appendectomy, aortic valve replacement, right renal hernia repair, ureterotomy, cystolitholapaxy and TURP. Sepsis with bacteremia from UTI 2/2 indwelling hargrove catheter, resolved -On admission: tachycardic, tachypneic, and WBC 13. Lactate 1.69, no hypotension. -Started on vancomycin, zosyn, and levaquin. Single BCx positive for GNB. Cx positive for E coli. Stopped vanc and zosyn. Converted to PO levaquin 750 mg daily starting 09Apr, planned total 14 day course. Metabolic encephalopathy: Resolved. Likely multifactorial, including acute sepsis on admission. CT head noted nothing acute. Acute pulmonary edema, treated and resolved: -CXR suggestive of volume overload without pulmonary consolidation. Given lasix 40 mg IV. Resolved, now off O2. -Cardiology onboard. Advised using lasix for prn use only since appears euvolemic Hematuria from ? Periurethral bleeding: - bleeding with blockage of hargrove after resuming xarelto. Hargrove flushed and changed. Bleeding ceased after holding xarelto. H&H stable. - Will continue to hold xarelto until further evaluation with cardiology. Advised on increased risk of stroke off xarelto. - Long-standing history of prostate cancer, s/p cystolitholapaxy and TURP. Next scheduled hargrove removal 19Apr. Tachycardia and atrial flutter on admission: - Given Cardizem 10 mg IV x 2, lopressor 5 mg IV. Was briefly on IV metoprolol , converted to metoprolol tartrate 25 mg PO BID, higher than home dose. - Patient has permanent aflutter and on home xarelto - Restarted xarelto at 15 mg per cardiology recommendation and ASA at 81 mg once GI bleed resolved. Approximately 24 hrs after restarting xarelto, hematuria returned. Xarelto held and bleeding ceased. H&H stable - Will continue to hold xarelto until further evaluation with cardiology. Advised on increased risk of stroke off xarelto. GI bleeding: -Reported melena prior to admission. Noted Hemoccult positive in the ED. -Held his xarelto and aspirin temporarily. Protonix drip DCd. Vitals and serial h/h stable. -Thoughts of EGD postponed due to family reluctance to have him undergo any procedures involving sedation. -Converted to oral PPI - consider discontinue after 2 weeks. H&H has remained stable. -Will continue to hold xarelto until further evaluation with cardiology. Advised on increased risk of stroke off xarelto. HTN: -Home dose losartan 100mg Dementia: -On home donepezil. Discussed risk of GI bleeding with patient's daughter. Daughter adamant that missing doses leads to hallucinations and other issues. -Relative risk seems higher with this than the GI bleed side effect, so kept patient on the medication. Code: Full code but no mechanical ventilation. Total Time Spent: Greater than 30 minutes This includes examination of the patient, discharge planning, medication reconciliation, and communication with other providers. Discharge Instructions Please refer to the electronic Patient Visit Report (Discharge Instructions) for additional information. Follow-Up Cardiology, 2-4 weeks Additional Copies To Abdoul Fuchs M.D. Resident Tracking Resident Involvement: Resident Care Provided Care Provided: Adult Hospital Medicine Reviewed: Pt Seen/Exam by Me History no further blood noted in the urine. Constitutional: denies: fever Respiratory: negative: short of breath Cardiovascular: denies chest pain General Appearance: no apparent distress Respiratory: lungs clear, no respiratory distress Cardiovascular: regular rate, rhythm Neurologic/Psychiatric: alert Skin Characteristics: warm/dry Assessment/Plan Resident Physician Supervision Note: I independently interviewed and examined the patient and verified the pride history and physical, reviewed labs and image studies, discussed the case with the resident Dr. Valdez and agree with the findings and care plan. Time spent in discharge 35 min
[2017-10-08] MEDS: LOSARTAN POTASSIUM 50 MG TAB PO SCH (08:11)
[2017-10-08] MEDS: RIVAROXABAN TAB 15 MG TAB PO SCH (08:12)
[2017-10-08] MEDS: METOPROLOL TARTRATE 25 MG TAB PO SCH ×2 (08:12→20:38)
[2017-10-08] MEDS: PANTOprazole SOD 40 MG TAB PO SCH ×2 (08:12→20:38)
[2017-10-08] MEDS: LEVOFLOXACIN 750 MG TAB PO SCH (11:20)
--- NOTE | 2017-10-08 12:17 | Family Medicine Progress Note ---
Progress Note Date of Service Oct 08, 2017. Subjective Pt evaluation today including: conversation w/ patient, physical exam Pain: Denies pain PO Intake: Tolerating qell Voiding: hargrove catheter in place Patient continues to feel well. Reports some sensation of retention and discomfort associated with Hargrove, and has been reporting some blood in his hargrove bag. Constitutional: No fever, No chills ENT: + hearing loss Respiratory: No cough, No sputum Abdomen: No pain, No nausea, No vomiting Male : + hematuria Neurologic: + memory loss All Other Systems: Reviewed and Negative Medications Current Inpatient Medications Medications (Trade) Dose Ordered Sig/Alva Route Start Time Stop Time Status Last Admin Dose Admin Ondansetron HCl (Zofran Inj) 4 mg Q6H PRN IV 10/03/17 22:45 11/02/17 22:44 Donepezil HCl (Aricept Tab) 10 mg QPM PO 10/04/17 21:00 11/03/17 20:59 10/07/17 20:43 10 MG Metoprolol Tartrate (Lopressor Tab) 25 mg BID PO 10/05/17 21:00 11/04/17 20:59 10/08/17 08:12 25 MG Pantoprazole Sodium (Protonix Tab) 40 mg BID PO 10/06/17 21:00 11/05/17 20:59 10/08/17 08:12 40 MG Rivaroxaban (Xarelto Tab) 15 mg DAILY PO 10/07/17 09:00 11/06/17 08:59 Future Hold 10/08/17 08:12 15 MG Losartan Potassium (coZAAR TAB) 100 mg QAM PO 10/07/17 09:00 11/06/17 08:59 10/08/17 08:11 100 MG Levofloxacin (Levaquin Tab) 750 mg DAILY@1100 PO 10/07/17 11:00 10/18/17 10:59 10/08/17 11:20 750 MG Objective Vital Signs Current Inpatient Medications Medications (Trade) Dose Ordered Sig/Alva Route Start Time Stop Time Status Last Admin Dose Admin Ondansetron HCl (Zofran Inj) 4 mg Q6H PRN IV 10/03/17 22:45 11/02/17 22:44 Donepezil HCl (Aricept Tab) 10 mg QPM PO 10/04/17 21:00 11/03/17 20:59 10/07/17 20:43 10 MG Metoprolol Tartrate (Lopressor Tab) 25 mg BID PO 10/05/17 21:00 11/04/17 20:59 10/08/17 08:12 25 MG Pantoprazole Sodium (Protonix Tab) 40 mg BID PO 10/06/17 21:00 11/05/17 20:59 10/08/17 08:12 40 MG Rivaroxaban (Xarelto Tab) 15 mg DAILY PO 10/07/17 09:00 11/06/17 08:59 Future Hold 10/08/17 08:12 15 MG Losartan Potassium (coZAAR TAB) 100 mg QAM PO 10/07/17 09:00 11/06/17 08:59 10/08/17 08:11 100 MG Levofloxacin (Levaquin Tab) 750 mg DAILY@1100 PO 10/07/17 11:00 10/18/17 10:59 10/08/17 11:20 750 MG Physical Exam General Appearance: WD/WN, no apparent distress Eyes: EOMI ENT: + pertinent finding (CAHUILLA) Neck: no carotid bruits Respiratory/Chest: lungs clear, normal breath sounds, no respiratory distress, no accessory muscle use Cardiovascular: no edema, no murmur Abdomen: non tender, soft Extremities: non-tender, normal inspection, no pedal edema Neurologic/Psychiatric: no motor/sensory deficits, alert Skin: normal color, warm/dry Laboratory Results Last Resulted 10/07/17 06:32 Last Resulted 10/07/17 06:32 Assessment and Plan 87 yo male admitted for lightheadedness and SOB, found to meet sepsis criteria with bacteremia 2/2 UTI from indwelling catheter. PMH includes HTN, HLD, prostate cancer (s/p radiation and ureterotomy with a chronic indwelling catheter), anemia, DM2, GERD, atrial flutter, kidney stones, syncope. PSH: Appendectomy, aortic valve replacement, right renal hernia repair, ureterotomy, cystolitholapaxy and TURP. Sepsis with bacteremia from UTI 2/2 indwelling hargrove catheter, resolved -On admission: tachycardic, tachypnic, and WBC 13. Lactate 1.69, no hypotension. -Started on vancomycin, zosyn, and levaquin. Single BCx positive for GNB. Cx positive for E coli. Stopped vanc and zosyn. Converted to PO levaquin 750 mg daily starting 09Apr, planned total 14 day course. Metabolic encephalopathy: Likely multifactorial, including acute sepsis on admission. CT head noted nothing acute. Reportedly at baseline. Acute pulmonary edema, treated and resolved: -CXR suggestive of volume overload without pulmonary consolidation. Given lasix 40 mg IV. Resolved, now off O2. -Cardiology onboard, notes initial mild volume overload improved with IV lasix. Advised holding lasix for prn use only since appears euvolemic Hematuria from ? Periurethral bleeding: - bleeding again with blockage of hargrove after resuming xarelto. Hargrove flushed and changed. Holding xarelto. Monitor for further bleeding. Follow. -Long-standing history of prostate cancer, s/p cystolitholapaxy and TURP. Next scheduled hargrove removal 19Apr. Tachycardia and atrial flutter on admission: - Given Cardizem 10 mg IV x 2, lopressor 5 mg IV. Was briefly on IV metoprolol , converted to metoprolol tartrate 25 mg PO BID, higher than home dose. - Patient has permanent aflutter and on home xarelto - Restarted xarelto at 15 mg per cardiology recommendation and ASA at 81 mg once GI bleed resolved. Approximately 24 hrs after restarting xarelto, hematuria returned. Xarelto held starting today - Follow up with cardio on discharge to discuss resumption of xarelto in 2 weeks GI bleeding: -Reported melena prior to admission. Noted Hemoccult positive in the ED. -Held his xarelto and aspirin temporarily. Protonix drip DCd. Vitals and serial h/h stable. -Thoughts of EGD postponed due to family reluctance to have him undergo any procedures involving sedation. -Converted to oral PPI. Repeat H&H after starting xarelto nl. -Developed hematuria this morning, likely related to xarelto resumption. Will repeat H&H and monitor bleeding after holding xarelto. -See Urology's note for further detail. HTN: -Home dose losartan 100mg Dementia: -On home donepezil. Discussed risk of GI bleeding with patient's daughter. Daughter adamant that missing doses leads to hallucinations and other issues. -Relative risk seems higher with this than the GI bleed side effect, so kept patient on the medication. Code: Full code but no mechanical ventilation. DVTP: xarelto, held Dispo: Discharge tomorrow. Medically stable, continued stay due to return of hematuria Resident Tracking Resident Involvement: Resident Care Provided Care Provided: Adult Hospital Medicine Reviewed: Pt Seen/Exam by Me History noted blood in hargrove since this am Constitutional: denies: fever Respiratory: negative: short of breath Cardiovascular: denies chest pain General Appearance: no apparent distress Respiratory: lungs clear, no respiratory distress Cardiovascular: regular rate, rhythm Neurologic/Psychiatric: alert Assessment/Plan Resident Physician Supervision Note: I independently interviewed and examined the patient and verified the pride history and physical, reviewed labs and image studies, discussed the case with the resident Dr. Valdez and agree with the findings and care plan.
--- NOTE | 2017-10-08 14:44 | Progress Note ---
Subjective Date of Service: Oct 08, 2017. Subjective Pt evaluation today including: conversation w/ patient, chart review, lab review Voiding: hargrove catheter in place (patent, draining bright loza colored urine ) 87 yo male with hx of urethral stricture and urinary retention. reconsulted this morning for new onset gross hematuria. Urine in drainage bag yesterday was clear, yellow. Xarelto restarted yesterday. 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 of half-way anticoagulation Status: Acute (2) Hematuria Status: Acute (3) Hypertension Status: Acute (4) Near syncope Status: Acute (5) Tachycardia Status: Acute (6) Urinary retention Status: Acute Review of Systems Constitutional: No fever, No chills Respiratory: No shortness of breath Cardiac: No chest pain Abdomen: No pain, No nausea, No vomiting Male : + hematuria Heme: + abnormal bleeding/bruising Objective Vital Signs Date Time Temp Pulse Resp B/P (MAP) Pulse Ox O2 Delivery O2 Flow Rate FiO2 10/08/17 07:13 36.9 76 18 155/84 (107) 96 Room Air 10/08/17 00:20 Room Air 10/08/17 00:13 36.3 76 18 142/81 (101) 94 Room Air 10/07/17 19:42 80 161/92 (115) 10/07/17 15:30 Room Air 10/07/17 15:10 37.0 78 18 135/77 (96) 92 Physical Exam General Appearance: no apparent distress Eyes: normal inspection ENT: hearing grossly normal Neck: no JVD Respiratory/Chest: no respiratory distress, no accessory muscle use Cardiovascular: no JVD Extremities: normal inspection Neurologic/Psychiatric: alert, normal mood/affect, oriented x 3 Skin: normal color Assessment and Plan A/P: UTI, urethral stricture, urinary retention Attempted to irrigate hargrove catheter today, but was unable to get good return. I then changed his hargrove catheter to a 20Fr silicone hargrove. Some resistance met with initial blood, but then I was able to advance to the bladder with clear, yellow urine return. Will observe hematuria for now. Will have nursing irrigate hargrove catheter qshift and PRN. Continue discontinuing Xarelto if he continues to bleed. Continue Levaquin for a total of 10-14 days of therapy for UTI. Will hold his discharge to [place] today for continued observation of hematuria.
[2017-10-08 15:04] VITALS: BP 148/76; PULSE 73; TEMP 36.9; O2SAT 91
[2017-10-08] MEDS: DONEPEZIL HCL 10 MG TAB PO SCH (20:38)
[2017-10-08 20:40] VITALS: BP 136/77; PULSE 75
[2017-10-08 22:58] VITALS: BP 144/71; PULSE 75; TEMP 36.7; O2SAT 94
[2017-10-09 07:49] VITALS: BP 162/93; PULSE 73; TEMP 36.4; O2SAT 95
[2017-10-09 07:57] LABS: HEMATOCRIT 32.7 % (42-52); HEMOGLOBIN 11.1 g/dL (14.0-18.0)
[2017-10-09] MEDS: PANTOprazole SOD 40 MG TAB PO SCH (08:05)
[2017-10-09] MEDS: METOPROLOL TARTRATE 25 MG TAB PO SCH (08:05)
[2017-10-09] MEDS: LOSARTAN POTASSIUM 50 MG TAB PO SCH (08:33)
[2017-10-09 08:59] VITALS: O2SAT 95
[2017-10-09 11:05] VITALS: BP 162/93; PULSE 73; TEMP 36.4; O2SAT 95
--- NOTE | 2017-10-09 11:31 | Progress Note ---
Subjective Date of Service: Oct 09, 2017. Subjective Pt evaluation today including: conversation w/ patient, physical exam, chart review, lab review, review of inpatient medication list Pain: Denies PO Intake: Mary PO Voiding: hargrove catheter in place (urine clear) 87 yo male with chronic hargrove, UTI. recalled over concern about recurrent hematuria. Urine in the bag seems to have been clear, bleeding around hargrove. Patient denies issues with his hargrove, draining freely. 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 of care home anticoagulation Status: Acute (2) Hematuria Status: Acute (3) Hypertension Status: Acute (4) Near syncope Status: Acute (5) Tachycardia Status: Acute (6) Urinary retention Status: Acute Review of Systems Constitutional: No fever, No chills Eyes: No worsening of vision ENT: No hearing loss Respiratory: No shortness of breath Cardiac: No chest pain Abdomen: No nausea, No vomiting Male : + see HPI Neurologic: No paralysis Heme: + abnormal bleeding/bruising Skin: No new/changing skin lesions Objective Vital Signs Date Time Temp Pulse Resp B/P (MAP) Pulse Ox O2 Delivery O2 Flow Rate FiO2 10/09/17 11:05 36.4 73 18 95 Room Air Nasal Cannula 10/09/17 08:59 95 Room Air 10/09/17 07:49 36.4 73 18 162/93 (116) 95 10/09/17 00:00 Room Air 10/08/17 22:58 36.7 75 20 144/71 (95) 94 Room Air 10/08/17 20:40 75 136/77 (96) 10/08/17 16:00 Room Air 10/08/17 15:04 36.9 73 18 148/76 (100) 91 Room Air Physical Exam General Appearance: WD/WN, no apparent distress ENT: normal ENT inspection Neck: supple, no adenopathy Respiratory/Chest: no respiratory distress, no accessory muscle use Cardiovascular: no JVD Abdomen: non tender, soft Extremities: non-tender Neurologic/Psychiatric: alert Comments: Hargrove in meatus, minimal blood around catheter, urine in hargrove and bag clear. Laboratory Results Last 24 Hours Test 10/09/17 07:06 Hemoglobin 11.1 g/dL Hematocrit 32.7 % Assessment and Plan A/P 87 yo male with chronic hargrove, UTI, prostate cancer, DEMOND. Will leave hargrove in place. Should be OK to restart anticoagulation per cardiology recommendations. Hb remains stable, no clinically significant blood loss during this episode. Continue antibiotics per primary service for pansensitive E. Coli. Due for outpatient hargrove exchange - will leave that visit as is. No acute intervention at this time. Will monitor hargrove drainage. Bleeding around the catheter is expected in this patient with a history of prostatic calcifications, urethral stricture and chronic hargrove. As long as hargrove is draining without clots or obstruction I would think anticoagulation is reasonable.
[2017-10-09] MEDS: LEVOFLOXACIN 750 MG TAB PO SCH (11:41)
== END 2017-10-09 11:51 | disposition home or self-care (01) | DRG 698 ==
LOC: EDBD 20:19 → C.EDB 20:21 → C.2T 23:15 → ENRESERV 23:15 → C.MS2W 10-06 18:14
PROVIDERS: ADMIT Hospitalist; ATTEND Family Medicine
DX: T83.518A Infection and inflammatory reaction due to other urinary catheter, initial encounter (principal); A41.51 Sepsis due to Escherichia coli [E. coli]; J81.0 Acute pulmonary edema; G93.41 Metabolic encephalopathy; N39.0 Urinary tract infection, site not specified; I48.92 Unspecified atrial flutter; K92.1 Melena; D68.32 Hemorrhagic disorder due to extrinsic circulating anticoagulants; R31.9 Hematuria, unspecified; T45.515A Adverse effect of anticoagulants, initial encounter; E87.79 Other fluid overload; R00.0 Tachycardia, unspecified; R55 Syncope and collapse; I44.7 Left bundle-branch block, unspecified; I48.91 Unspecified atrial fibrillation; I25.10 Atherosclerotic heart disease of native coronary artery without angina pectoris; I10 Essential (primary) hypertension; E11.9 Type 2 diabetes mellitus without complications; E78.5 Hyperlipidemia, unspecified; K21.9 Gastro-esophageal reflux disease without esophagitis; R33.9 Retention of urine, unspecified; N35.9 Urethral stricture, unspecified; D64.9 Anemia, unspecified; M19.90 Unspecified osteoarthritis, unspecified site; M81.0 Age-related osteoporosis without current pathological fracture; H91.90 Unspecified hearing loss, unspecified ear; F03.90 Unspecified dementia, unspecified severity, without behavioral disturbance, psychotic disturbance, mood disturbance, and anxiety; Z95.3 Presence of xenogenic heart valve; Z85.46 Personal history of malignant neoplasm of prostate; Z87.891 Personal history of nicotine dependence; Z79.2 Long term (current) use of antibiotics; Z79.82 Long term (current) use of aspirin; Z88.8 Allergy status to other drugs, medicaments and biological substances

== ENCOUNTER 2017-10-22 13:18 | Emergency (ER) | payer OTHER ==
[~2017-10-22] VITALS: Ht 177.8 cm; Wt 102.0 kg
[~2017-10-22 13:18] MED LIST changes: -ACET-1256 PO; +ACET-1311 PO; -AMOX500C3 PO; -ASPI81TA28 PO; +BABY SHAMPOO OPB; +CALC-585 PO; -CALC500C3 PO; -DOCU100C31 PO; +DONE1TAB26 PO; -DONE5TAB26 PO; +FERR325T5 PO; +FLUT0.15 NAE; +LPR25 PO; +LVQ750 PO; -METH-1305 PO; -METO50TA8 PO; +PHEN-775 PO; +RANI150T3 PO; -RIVA1TAB4 PO
[2017-10-22 13:24] VITALS: Ht 177.8 cm; Wt 102.0 kg
--- NOTE | 2017-10-22 14:09 | EMERGENCY ROOM VISIT NOTE ---
History Report prepared by Yancy: Bebeto Lazar Under the Supervision of: Dr. Bassem Brunson M.D. First contact with patient: 13:49 Chief Complaint: ILLNESS Stated Complaint: RESPIRATORY History of Present Illness The patient is an 87 year old white male with a past medical history of HTN, HLD , prostate cancer, anemia, DM2, GERD, atrial flutter, kidney stones, syncope, Appendectomy, aortic valve replacement, right renal hernia repair, ureterotomy, cystolitholapaxy and TURP who presents to the ED with a cc of constant low oxygen levels beginning this morning. Positive constipation and leg swelling which is not better or worse with anything. Negative chest pain, shortness of breath, and abdominal pain. Per the intermediate notes from [facility], the patient had an O2 saturation of 94% this morning with shortness of breath, dizziness, and nausea, though he is currently asymptomatic. The patient was recently admitted and discharged for sepsis bacteremia secondary to indwelling [place] UTI Source of History: patient, intermediate notes Onset: this morning Position: leg (bilateral), other (generalized) Quality: other (shortness of breath and swelling) Modifying Factors (Worsening): other (nothing) Modifying Factors (Relieving): other (nothing) Associated Symptoms: No chest pain, No SOB, No nausea, No abdominal pain Review of Systems See HPI for pertinent positives and negatives. A total of ten systems were reviewed and were otherwise negative. Past Medical & Surgical Medical Problems: (1) Aortic Valve Disorder (2) Coronary Atherosclerosis Of [place] Coronary Vessel (3) Diab Teri Wo Compl, Type Ii Or Unspec Type, Not Uncntrld (4) Esophageal Reflux (5) Forehead laceration (6) Forehead laceration (7) Hx-Prostatic Malignancy (8) Hyperlipidemia Nec/Nos (9) Malign Neopl Prostate (10) Osteoarthros Nos-Unspec (11) Urethral bleeding (12) Urinary retention Surgical Problems: (1) Hx of appendectomy Family History FH: heart disease Social History Smoking Status: Former Smoker Drug Use: none Marital Status: Housing Status: lives alone Occupation Status: retired Current/Historical Medications Scheduled Atorvastatin (Lipitor), 10 MG PO QPM Cholecalciferol (Vitamin D3), 1,000 INTER.UNIT PO QAM Donepezil Hydrochloride (Donepezil Hcl), 10 MG PO QPM Ferrous Sulfate (Iron), 325 MG PO BIDM Fluticasone Propionate (Nasal) (Flonase Allergy Relief), 2 SPRAYS JUNI DAILY Losartan Potassium (Cozaar), 100 MG PO QAM Metoprolol Tartrate (Lopressor), 12.5 MG PO BID Oyster Shell (Calcium), 500 MG PO DAILY Ranitidine Hcl (Zantac), 150 MG PO BID Rivaroxaban (Xarelto), 20 MG PO QPM [Baby Shampoo], 1 APPLN OPB QPM Scheduled PRN Acetaminophen (Tylenol), 650 MG PO Q6 PRN for Pain or Fever Allergies Coded Allergies: Lisinopril (Verified Adverse Reaction, Mild, DIARRHEA, 10/22/17) Physical Exam Vital Signs Date Time Temp Pulse Resp B/P (MAP) Pulse Ox O2 Delivery O2 Flow Rate FiO2 10/22/17 16:18 72 17 10/22/17 15:18 74 16 10/22/17 14:43 74 10/22/17 14:40 72 16 140/79 10/22/17 14:38 140/79 10/22/17 13:24 36.5 81 16 136/62 94 Room Air Physical Exam GENERAL: Awake, alert, well-appearing, NAD HENT: Normocephalic, atraumatic. EYES: Normal conjunctiva. Sclera non-icteric. PERRL. No anisocoria. Pinpoint Pupils. NECK: Supple. No nuchal rigidity. FROM. RESPIRATORY: Trace expiratory wheezes at the left base. No rhonchi, crackles CARDIAC: RRR, no MRG ABDOMEN: Soft, NTND, BS+ MSK: No chest wall TTP, 1+ BLE swelling NEURO: GCS 15, CN 2-12 intact, moves all 4s on command SKIN: No rash or jaundice noted. Medical Decision & Procedures ER Provider Diagnostic Interpretation: Radiology results as stated below per my review and radiologist interpretation: CHEST ONE VIEW PORTABLE CLINICAL HISTORY: ABDOMINAL PAIN/GI pain. Nausea. COMPARISON STUDY: 10/03/2017 FINDINGS: Mild stable cardia megaly. Prior median sternotomy. Lungs are clear. Old degenerative change left shoulder and showed associated capsule. IMPRESSION: Chronic and postoperative change. No acute process. The above report was generated using voice recognition software. It may contain grammatical, syntax or spelling errors. Electronically signed by: Cooper Holm M.D. 10/22/2017 2:21 PM Dictated Date/Time: 10/22/2017 2:20 PM Laboratory Results 10/22/17 14:30 Red Blood Count 3.68, Mean Corpuscular Volume 94.0, Mean Corpuscular Hemoglobin 31.0, Mean Corpuscular Hemoglobin Concent 32.9, Mean Platelet Volume 10.0, Neutrophils (%) (Auto) 69.2, Lymphocytes (%) (Auto) 17.8, Monocytes (%) (Auto) 9.5, Eosinophils (%) (Auto) 3.0, Basophils (%) (Auto) 0.3, Neutrophils # (Auto) 4.45, Lymphocytes # (Auto) 1.14, Monocytes # (Auto) 0.61, Eosinophils # (Auto) 0.19, Basophils # (Auto) 0.02 10/22/17 14:30 Test 10/22/17 14:30 White Blood Count 6.42 K/uL (4.8-10.8) Red Blood Count 3.68 M/uL (4.7-6.1) Hemoglobin 11.4 g/dL (14.0-18.0) Hematocrit 34.6 % (42-52) Mean Corpuscular Volume 94.0 fL (80-100) Mean Corpuscular Hemoglobin 31.0 pg (25-34) Mean Corpuscular Hemoglobin Concent 32.9 g/dl (32-36) Platelet Count 180 K/uL (130-400) Mean Platelet Volume 10.0 fL (7.4-10.4) Neutrophils (%) (Auto) 69.2 % Lymphocytes (%) (Auto) 17.8 % Monocytes (%) (Auto) 9.5 % Eosinophils (%) (Auto) 3.0 % Basophils (%) (Auto) 0.3 % Neutrophils # (Auto) 4.45 K/uL (1.4-6.5) Lymphocytes # (Auto) 1.14 K/uL (1.2-3.4) Monocytes # (Auto) 0.61 K/uL (0.11-0.59) Eosinophils # (Auto) 0.19 K/uL (0-0.5) Basophils # (Auto) 0.02 K/uL (0-0.2) RDW Standard Deviation 51.8 fL (36.4-46.3) RDW Coefficient of Variation 15.0 % (11.5-14.5) Immature Granulocyte % (Auto) 0.2 % Immature Granulocyte # (Auto) 0.01 K/uL (0.00-0.02) Anion Gap 4.0 mmol/L (3-11) Est Creatinine Clear Calc Drug Dose 55.5 ml/min Estimated GFR () 70.2 Estimated GFR (Non- 60.5 BUN/Creatinine Ratio 24.9 (10-20) Calcium Level 8.6 mg/dl (8.5-10.1) Magnesium Level 2.3 mg/dl (1.8-2.4) Troponin I < 0.015 ng/ml (0-0.045) Pro-B-Type Natriuretic Peptide 672 pg/ml (0-1800) Laboratory results reviewed by me ECG Per My Interpretation Indication: other (hypoxia) Rate (beats per minute): 64 Rhythm: atrial flutter (with a 2:1 then 3:1 variable block) Findings: T-wave inversion (in 3 and AVF), other (normal axis) Comparison ECG Date: 10/03/17 Change: Atrial flutter replaced A-fib, and rate has improved. ED Course 1349: The patient was evaluated in room C7. A complete history and physical exam was performed. 1518: I reevaluated the patient. Discussed results and discharge instructions: he verbalized understanding and agreement. The patient is ready for discharge. Medical Decision Nursing notes reviewed. Ancillary studies and prior records reviewed. The patient is an 87 year old white male with a past medical history of HTN, HLD , prostate cancer, anemia, DM2, GERD, atrial flutter, kidney stones, syncope, Appendectomy, aortic valve replacement, right renal hernia repair, ureterotomy, cystolitholapaxy and TURP who presents to the ED with a cc of constant low oxygen levels beginning this morning. Differential diagnosis: Etiologies such as infections, reactive airway disease, pneumonia, pneumothorax , COPD, CHF, cardiac ischemia, pulmonary embolism, musculoskeletal, gastrointestinal, as well as others were entertained. Patient was seen and evaluated the bedside. Patient apparently was referred for decreased O2 saturation. Upon looking at the chart he had an O2 sat of 94% at his group home with some associated nausea and shortness of breath. Upon examination of the patient the patient denies any acute symptomatically complaints including, chest pain, nausea, vomiting, shortness of breath, cough, fever, chills. On exam the patient does have a trace expiratory wheeze at the left base. Patient does have chronic lower extremity swelling and it is only 1+ . Patient did blood work completed, EKG, troponin, chest x-ray. Patient chest x- ray unremarkable. Troponin is not elevated. BNP is not elevated. EKG shows a flutter 2-1 and 3-1 variable AV block. Ventricular rate is controlled. Do not believe this third-degree heart block. Patient is already on Xarelto he does not need further anticoagulation. Do not believe he is in failure is having ACS. Patient's other blood work is fairly unremarkable. Chronic but stable anemia. Patient was deemed suitable for outpatient follow-up and treatment at this time. Patient was given strict follow-up, discharge, and return precautions. All questions were answered. Patient was deemed suitable for outpatient follow-up at this time. Patient agreed with the plan of care and was safely discharged home. Medication Reconcilliation Current Medication List: was personally reviewed by me Blood Pressure Screening Patient's blood pressure: Elevated blood pressure Blood pressure disposition: Referred to PCP Impression Primary Impression: Anemia Additional Impression: Atrial flutter by electrocardiogram Scribe Attestation The scribe's documentation has been prepared under my direction and personally reviewed by me in its entirety. I confirm that the note above accurately reflects all work, treatment, procedures, and medical decision making performed by me. Departure Information Dispostion Home / Self-Care Referrals Abdoul Fuchs M.D. (PCP) Forms HOME CARE DOCUMENTATION FORM, IMPORTANT VISIT INFORMATION, WORK / SCHOOL INSTRUCTIONS Patient Instructions Anemia, Atrial Flutter, My [facility] Additional Instructions Please return to the emergency department if you have worsening or recurrent symptoms not amenable to at-home treatment. Please call for a follow-up appointment with her primary care physician. Please take your medications as prescribed. If you have other concerns and/or complaints please feel free to also call your primary care physician's office or return the ED for further evaluation, management, and treatment. Take your medications as prescribed. You have been examined and treated today on an emergency basis only. This is not a substitute for, or an effort to provide, complete comprehensive medical care. It is impossible to recognize and treat all injuries or illnesses in a single emergency department visit. It is therefore important that you follow up closely with [facility], your PCP, and/or your specialist(s). Call as soon as possible for an appointment. Thank you for your time and consideration. I look forward to speaking with you again soon. Please don't hesitate to call us if you have any questions. Problem Qualifiers Primary Impression: Anemia Anemia type: unspecified type Qualified Codes: D64.9 - Anemia, unspecified
[2017-10-22] MEDS ORDERED: PHEN-876 PO (14:11)
[2017-10-22] MEDS ORDERED: OYST500T47 PO (14:11)
[2017-10-22] MEDS ORDERED: ACET-1311 PO (14:11)
[2017-10-22] MEDS ORDERED: FERR1TAB23 PO (14:11)
[2017-10-22] MEDS ORDERED: FLUT27.53 NAE (14:11)
[2017-10-22] MEDS ORDERED: ATOR10TA82 PO (14:11)
[2017-10-22] MEDS ORDERED: RIVA1TAB4 PO (14:11)
[2017-10-22] MEDS ORDERED: METO25TA56 PO (14:11)
[2017-10-22] MEDS ORDERED: LOSA1TAB38 PO (14:11)
[2017-10-22] MEDS ORDERED: DONE1TAB26 PO (14:11)
--- NOTE | 2017-10-22 14:22 | DIAGNOSTIC IMAGING REPORT ---
CHEST ONE VIEW PORTABLE CLINICAL HISTORY: ABDOMINAL PAIN/GI pain. Nausea. COMPARISON STUDY: 10/03/2017 FINDINGS: Mild stable cardia megaly. Prior median sternotomy. Lungs are clear. Old degenerative change left shoulder and showed associated capsule. IMPRESSION: Chronic and postoperative change. No acute process. The above report was generated using voice recognition software. It may contain grammatical, syntax or spelling errors. Electronically signed by: Cooper Holm M.D. 10/22/2017 2:21 PM Dictated Date/Time: 10/22/2017 2:20 PM
[2017-10-22 14:54] LABS: BASO % 0.3 %; BASO ABS # 0.02 K/uL (0-0.2); EOS ABS # 0.19 K/uL (0-0.5); HEMATOCRIT 34.6 % (42-52); HEMOGLOBIN 11.4 g/dL (14.0-18.0); IG# 0.01 K/uL (0.00-0.02); LYMPH % 17.8 %; LYMPH ABS # 1.14 K/uL (1.2-3.4); MEAN CORPUSCULAR HGB CONC 32.9 g/dl (32-36); MONO % 9.5 %; MONO ABS # 0.61 K/uL (0.11-0.59); NEUT % 69.2 %; NEUT ABS # 4.45 K/uL (1.4-6.5); PLATELET COUNT 180 K/uL (130-400); RED CELL DISTRIBUTION WIDTH SD 51.8 fL (36.4-46.3); WHITE BLOOD COUNT 6.42 K/uL (4.8-10.8)
[2017-10-22 15:06] LABS: BLOOD UREA NITROGEN 27 mg/dl (7-18); CALCIUM 8.6 mg/dl (8.5-10.1); CARBON DIOXIDE 29 mmol/L (21-32); CREATININE 1.08 mg/dl (0.60-1.40); GLUCOSE 145 mg/dl (70-99); POTASSIUM 4.2 mmol/L (3.5-5.1); SODIUM 139 mmol/L (136-145)
[2017-10-22 17:52] VITALS: BP 143/72; PULSE 94; TEMP 36.5; O2SAT 95
== END 2017-10-22 17:52 | disposition home or self-care (01) ==
LOC: EDBD 13:18 → C.EDC 13:21
DX: D64.9 Anemia, unspecified (principal); I48.92 Unspecified atrial flutter; R94.31 Abnormal electrocardiogram [ECG] [EKG]; I44.2 Atrioventricular block, complete; K59.00 Constipation, unspecified; R60.0 Localized edema; I10 Essential (primary) hypertension; E11.9 Type 2 diabetes mellitus without complications; I25.10 Atherosclerotic heart disease of native coronary artery without angina pectoris; K21.9 Gastro-esophageal reflux disease without esophagitis; E78.5 Hyperlipidemia, unspecified; Z87.891 Personal history of nicotine dependence; Z79.01 Long term (current) use of anticoagulants; Z79.899 Other long term (current) drug therapy; Z88.8 Allergy status to other drugs, medicaments and biological substances; Z95.2 Presence of prosthetic heart valve; Z82.49 Family history of ischemic heart disease and other diseases of the circulatory system